=== PATIENT | male | born 1970 | race Two or more races ===

== ENCOUNTER 2019-05-08 11:46 | Inpatient (IN) | payer MEDICAID ==
[~2019-05-08] VITALS: Ht 177.8 cm; Wt 151.5 kg
[~2019-05-08 11:46] MED LIST: DULO60CA PO; GABA-339 PO; INSU70IN3 SC; INSUINJ SC; RISP1TAB63 PO
[2019-05-08 12:16] LABS: Basophils # (auto) 0.1 uL; Basophils % (auto) 0.7 % (0.0-2.0); Eosinophils # (auto) 0.2 uL; Eosinophils % (auto) 2.3 % (0.0-7.0); Hematocrit 39.1 % (41.0-53.0); Hemoglobin 12.7 g/dL (13.5-17.5); Lymphocytes # (auto) 1.6 uL; Lymphocytes % (auto) 20.4 % (10.0-50.0); Mean Corpuscular Hemoglobin 28.3 pg (28.0-32.0); Mean Corpuscular Hgb Conc. 32.4 g/dL (32.0-36.0); Mean Corpuscular Volume 87.1 fL (80.0-100.0); Monocytes # (auto) 0.5 uL; Monocytes % (auto) 6.6 % (0.0-12.0); Neutrophils # (auto) 5.6 uL; Platelet Count (auto) 283 10^3/uL (140-450); Red Blood Cells 4.49 10^6/uL (4.5-5.90); Red Cell Distribution Width 15.5 % (11.8-14.3)
[2019-05-08 12:38] LABS: Potassium 5.4 mmol/L (3.5-5.1)
[2019-05-08 12:41] LABS: BUN/Creatinine Ratio 12.9; Bilirubin, Total 0.2 mg/dL (0.2-1.0); Total Protein 6.1 g/dL (6.4-8.2)
[2019-05-08] MEDS ORDERED: CALCIUM GLUC 4.65meq/50ml D5AE 50 ML IV ONE (13:00)
[2019-05-08] MEDS ORDERED: SODIUM BICARBONATE 8.4 % INJ 50ML VIAL IV ONE (13:00)
[2019-05-08] MEDS ORDERED: DEXTROSE (50%) 50ML SYRG IV PRN (14:00)
[2019-05-08] MEDS ORDERED: SODIUM ZIRCONIUM CYCL 10 GM PAK PO ONE ×3 (14:00→17:45)
[2019-05-08] MEDS ORDERED: NITROGLYCERIN 0.4 MG SL TAB SL PRN (14:00)
[2019-05-08] MEDS ORDERED: MORPHINE SULF INJ 2 MG/ML SYRINGE 1ML IV PRN (14:00)
[2019-05-08] MEDS: SODIUM BICARBONATE 50ML VIAL 50 ML in SOD CHL 0.45% 1,000 ML IV ONE ×2 (14:18→18:13)
[2019-05-08] MEDS: hydrALAZINE HCL 10 MG TAB PO SCH ×2 (14:29→21:55)
[2019-05-08 15:19] VITALS: BP 143/76
--- NOTE | 2019-05-08 15:19 | NUR ---
Telemetry admit from ER BERNARD CHICAS admitted to Telemetry unit after SBAR received BRENDON John. Patient oriented to Fabi Hagan primary RN, unit, room, bed, and unit policies regarding patient care and visiting hours. Patient now on continuous telemetry monitoring, tele box #25. Bed set to lowest position/locked, bedside rails up x2, call light within reach. Instructed patient to call for assistance.Will continue to monitor q1hr and prn.
[2019-05-08] MEDS: ACCU-CHEK COMFORT CURVE STRIP VI SCH ×2 (17:00→21:37)
[2019-05-08] MEDS: InsuLIN REG 1unit/0.01ml Soln (100units/ml) SC SCH ×2 (17:00→21:51)
[2019-05-08 17:06] VITALS: BP 132/86
[2019-05-08] MEDS ORDERED: OPTISON 3ml Vial for INJ IV ONE (17:16)
[2019-05-08] MEDS ORDERED: INSU75IN2 SC (18:02)
[2019-05-08] MEDS ORDERED: ATOR1TAB PO (18:02)
[2019-05-08] MEDS ORDERED: DULO20CA PO (18:02)
[2019-05-08] MEDS ORDERED: SEMA2INJ SC (18:08)
[2019-05-08] MEDS ORDERED: AMLO10TA13 PO (18:08)
[2019-05-08] MEDS ORDERED: LEVO25TA6 PO (18:08)
[2019-05-08] MEDS ORDERED: CHOL1TAB16 PO (18:08)
[2019-05-08] MEDS ORDERED: IRBE300T46 PO (18:08)
--- NOTE | 2019-05-08 19:26 | NUR ---
ENDORSED CARE TO BRENDON CALVO.
--- NOTE | 2019-05-08 19:57 | NUR ---
Opening Shift Note Assumed care of patient, awake and alert. No S/S of distress/SOB or pain. Instructed on POC and to call for assist PRN, will continue to monitor for changes Q1hr and PRN.Ate with very good appetite.
[2019-05-08 21:20] LABS: Albumin 1.9 g/dL (3.4-5.0); BUN/Creatinine Ratio 13.2; Calcium 8.1 mg/dL (8.5-10.1); Potassium 5.2 mmol/L (3.5-5.1)
[2019-05-08 21:22] LABS: Bilirubin, Total 0.2 mg/dL (0.2-1.0); Total Protein 5.7 g/dL (6.4-8.2)
[2019-05-08] MEDS: ATORVASTATIN 20 MG TAB PO SCH ×2 (21:36→21:56)
[2019-05-08] MEDS: CARVEDILOL 3.125 MG TAB PO SCH (21:57)
[2019-05-08 22:00] VITALS: BP_SYST 104; BP_SYST 144; BP_DIAS 69; BP_DIAS 70
--- NOTE | 2019-05-09 02:05 | NUR ---
Informed N.p that the patient wants his gabapentin home med.reconciled, and its nick as per N.p .
[2019-05-09 05:00] VITALS: BP 143/78
[2019-05-09] MEDS: hydrALAZINE HCL 10 MG TAB PO SCH ×3 (05:31→22:20)
[2019-05-09] MEDS: GABAPENTIN 300 MG CAP PO SCH ×3 (05:31→17:34)
[2019-05-09] MEDS ORDERED: InsuLIN REG 1unit/0.01ml Soln (100units/ml) ONE (05:55)
[2019-05-09] MEDS: ACCU-CHEK COMFORT CURVE STRIP VI SCH ×4 (06:35→22:20)
[2019-05-09] MEDS: InsuLIN REG 1unit/0.01ml Soln (100units/ml) SC SCH ×4 (06:36→22:30)
[2019-05-09 06:49] LABS: Basophils # (auto) 0.1 uL; Basophils % (auto) 0.6 % (0.0-2.0); Eosinophils # (auto) 0.2 uL; Eosinophils % (auto) 2.7 % (0.0-7.0); Lymphocytes # (auto) 1.9 uL; Lymphocytes % (auto) 22.8 % (10.0-50.0); Mean Corpuscular Hemoglobin 28.8 pg (28.0-32.0); Mean Corpuscular Hgb Conc. 33.4 g/dL (32.0-36.0); Mean Corpuscular Volume 86.2 fL (80.0-100.0); Monocytes # (auto) 0.6 uL; Monocytes % (auto) 6.9 % (0.0-12.0); Neutrophils # (auto) 5.6 uL; Platelet Count (auto) 240 10^3/uL (140-450); Red Blood Cells 4.17 10^6/uL (4.5-5.90); Red Cell Distribution Width 15.1 % (11.8-14.3); White Blood Cell 8.4 10^3/uL (4.4-10.8)
[2019-05-09 07:03] LABS: Potassium 4.9 mmol/L (3.5-5.1)
[2019-05-09 07:13] LABS: Albumin 1.9 g/dL (3.4-5.0); BUN/Creatinine Ratio 13.2; Bilirubin, Total 0.2 mg/dL (0.2-1.0); Calcium 8.2 mg/dL (8.5-10.1); Total Protein 5.8 g/dL (6.4-8.2)
--- NOTE | 2019-05-09 07:24 | NUR ---
Report given to Rodolfo Dunlap,patient is resting and to tell hospitalist the home meds.
--- NOTE | 2019-05-09 07:50 | NUR ---
OPENING NOTE ASSUMED CARE OF PT. ALERT AND ORIENTED. NO S/S SOB/DISTRESS NOTED. DENIES ANY PAIN. SAFETY PRECAUTIONS IN PLACE. BED SET TO LOWEST POSITION/LOCKED. BEDSIDE RAILS UP X2. CALL LIGHT WITHIN REACH. INSTRUCTED PT TO CALL FOR ASSISTANCE. UPDATED ON POC. PT VERBALIZED UNDERSTANDING WILL CONTINUE TO MONITOR Q1HR AND PRN.
[2019-05-09 09:00] VITALS: BP 120/65
[2019-05-09] MEDS: CARVEDILOL 3.125 MG TAB PO SCH ×2 (09:37→22:20)
[2019-05-09] MEDS: DULoxetine HCL 30 MG CAP PO SCH (09:38)
[2019-05-09 13:00] VITALS: BP 128/78
[2019-05-09 17:00] VITALS: BP 133/92
--- NOTE | 2019-05-09 17:00 | NUR ---
RECEIVED CALL FROM DR. TOVAR RE: CONSULTATION. PER MD PATIENT WILL BE SEE TOMORROW 05/10/19
--- NOTE | 2019-05-09 19:19 | NUR ---
Opening Shift Note Received report from day shift nurse, Fabi. Patient is awake, alert, and orientated x 4 with No S/S of distress/SOB or pain. Pt has prosthetic leg at bedside. Bed is in lowest position with side rails up x 2. Bed brakes are locked and call light is with in reach. HOB is 30 degrees and bed alarm is on. Instructed on POC and to call for assistance PRN, will continue to monitor for changes Q1hr and PRN.
[2019-05-09 20:00] VITALS: BP 128/78
[2019-05-09 22:00] VITALS: BP 115/75
[2019-05-09] MEDS: ATORVASTATIN 20 MG TAB PO SCH (22:20)
[2019-05-10] MEDS: GABAPENTIN 300 MG CAP PO SCH ×4 (00:11→18:00)
[2019-05-10 04:53] VITALS: BP 124/78
[2019-05-10] MEDS: hydrALAZINE HCL 10 MG TAB PO SCH ×2 (05:43→13:34)
[2019-05-10] MEDS: ACCU-CHEK COMFORT CURVE STRIP VI SCH ×3 (06:03→17:00)
[2019-05-10] MEDS: InsuLIN REG 1unit/0.01ml Soln (100units/ml) SC SCH ×3 (06:08→17:00)
[2019-05-10 06:47] LABS: Basophils # (auto) 0 uL; Basophils % (auto) 0.5 % (0.0-2.0); Eosinophils # (auto) 0.1 uL; Eosinophils % (auto) 1.6 % (0.0-7.0); Hematocrit 35.4 % (41.0-53.0); Hemoglobin 11.8 g/dL (13.5-17.5); Lymphocytes # (auto) 1.7 uL; Lymphocytes % (auto) 19.4 % (10.0-50.0); Mean Corpuscular Hgb Conc. 33.4 g/dL (32.0-36.0); Mean Corpuscular Volume 86.9 fL (80.0-100.0); Monocytes # (auto) 0.7 uL; Monocytes % (auto) 7.3 % (0.0-12.0); Neutrophils # (auto) 6.4 uL; Neutrophils % (auto) 71.2 % (37.0-80.0); Platelet Count (auto) 244 10^3/uL (140-450); Red Blood Cells 4.08 10^6/uL (4.5-5.90); Red Cell Distribution Width 14.8 % (11.8-14.3); White Blood Cell 8.9 10^3/uL (4.4-10.8)
[2019-05-10 07:04] LABS: Potassium 4.8 mmol/L (3.5-5.1)
[2019-05-10 07:08] LABS: BUN/Creatinine Ratio 14.4; Calcium 8.1 mg/dL (8.5-10.1); Magnesium 2.4 mg/dL (1.6-2.6)
--- NOTE | 2019-05-10 07:25 | NUR ---
closing notes endorsed care to day shift nurseConstance.
--- NOTE | 2019-05-10 07:50 | NUR ---
Opening Shift Note Assumed care of patient, awake and alert. No S/S of distress/SOB or pain. Instructed on POC and to call for assist PRN, will continue to monitor for changes Q1hr and PRN.
[2019-05-10 09:11] VITALS: BP 147/85
[2019-05-10] MEDS: DULoxetine HCL 30 MG CAP PO SCH (10:04)
[2019-05-10] MEDS: CARVEDILOL 3.125 MG TAB PO SCH (10:04)
--- NOTE | 2019-05-10 11:30 | NUR ---
Off Unit Patient have AMA in chart to go downstairs. Stated that he is just going outside to get some sun.
--- NOTE | 2019-05-10 11:50 | NUR ---
On Unit Patient returned to unit.
[2019-05-10 13:00] VITALS: BP 135/91
[2019-05-10 16:32] VITALS: BP 135/91
--- NOTE | 2019-05-10 18:00 | NUR ---
Discharge instructions given as ordered. Encourage to follow up with PMD as instructed. All questions and concerns addressed. Patient verbalized understanding. Medication reconciliation form completed and copy given to patient. IV removed with catheter intact and pressure dressing applied. Telemetry unit returned to ICU. Patient in room awaiting supper before he goes home.
--- NOTE | 2019-05-10 19:20 | NUR ---
Patient taken to vehicle via wheelchair with all personal belongings, accompanied by staff and family member. No distress noted at time of departure.
== END 2019-05-10 19:25 | disposition home or self-care (01) | DRG 469 ==
LOC: EDBD 11:46 → ER 11:46 → TELE 11:47 → TELE-CENTR 15:20
PROVIDERS: ADMIT Nurse Practitioner Acute Care; ATTEND Internal Medicine
DX: N17.9 Acute kidney failure, unspecified (principal); E11.22 Type 2 diabetes mellitus with diabetic chronic kidney disease; E11.51 Type 2 diabetes mellitus with diabetic peripheral angiopathy without gangrene; E44.0 Moderate protein-calorie malnutrition; E87.5 Hyperkalemia; I12.0 Hypertensive chronic kidney disease with stage 5 chronic kidney disease or end stage renal disease; E11.65 Type 2 diabetes mellitus with hyperglycemia; E78.00 Pure hypercholesterolemia, unspecified; D63.8 Anemia in other chronic diseases classified elsewhere; Z68.37 Body mass index [BMI] 37.0-37.9, adult; E66.01 Morbid (severe) obesity due to excess calories; E78.5 Hyperlipidemia, unspecified; F17.210 Nicotine dependence, cigarettes, uncomplicated; N18.6 End stage renal disease; Z79.4 Long term (current) use of insulin; Z79.899 Other long term (current) drug therapy; Z80.9 Family history of malignant neoplasm, unspecified; Z82.49 Family history of ischemic heart disease and other diseases of the circulatory system; Z89.512 Acquired absence of left leg below knee; Z83.3 Family history of diabetes mellitus; F32.9 Major depressive disorder, single episode, unspecified
CPT/HCPCS: 36415; 71045; 80048; 80053; 80061; 82962; 83036; 83735; 85025; 93005; 93306; 93971; 94761; 96365; 96375; G0378; J0610; J1815; Q9956

== ENCOUNTER 2019-08-23 10:20 | Emergency (ER) | payer MEDICAID ==
[~2019-08-23] VITALS: Ht 175.3 cm; Wt 149.7 kg
[~2019-08-23 10:20] MED LIST changes: +AMLO10TA13 PO; +ATOR1TAB PO; +CHOL1TAB16 PO; +DULO20CA PO; -DULO60CA PO; -INSU70IN3 SC; +INSU75IN2 SC; +LEVO25TA6 PO; +SEMA2INJ SC
[2019-08-23 10:34] VITALS: BP 139/90
[2019-08-23 11:16] LABS: Basophils # (auto) 0.1 uL; Basophils % (auto) 0.6 % (0.0-2.0); Eosinophils # (auto) 0.2 uL; Eosinophils % (auto) 2.2 % (0.0-7.0); Hemoglobin 13.9 g/dL (13.5-17.5); Lymphocytes # (auto) 1.4 uL; Lymphocytes % (auto) 16.3 % (10.0-50.0); Mean Corpuscular Hemoglobin 29.1 pg (28.0-32.0); Mean Corpuscular Hgb Conc. 33.1 g/dL (32.0-36.0); Mean Corpuscular Volume 87.9 fL (80.0-100.0); Monocytes # (auto) 0.5 uL; Monocytes % (auto) 5.9 % (0.0-12.0); Neutrophils # (auto) 6.5 uL; Platelet Count (auto) 226 10^3/uL (140-450); Red Blood Cells 4.77 10^6/uL (4.5-5.90); White Blood Cell 8.6 10^3/uL (4.4-10.8)
[2019-08-23 11:42] LABS: Albumin 1.6 g/dL (3.4-5.0); Calcium 8.1 mg/dL (8.5-10.1); Potassium 5.4 mmol/L (3.5-5.1)
[2019-08-23 11:47] LABS: Bilirubin, Total 0.2 mg/dL (0.2-1.0); Total Protein 5.7 g/dL (6.4-8.2)
[2019-08-23 11:48] LABS: BUN/Creatinine Ratio 14.4
[2019-08-23] MEDS ORDERED: FUROSEMIDE 20 MG/2 ML VIAL IV ONE (12:00)
[2019-08-23] MEDS ORDERED: SODIUM CHLORIDE 0.9% 1,000 ML IV ONE (12:00)
[2019-08-23] MEDS ORDERED: InsuLIN REG 1unit/0.01ml Soln (100units/ml) IV ONE (12:00)
[2019-08-23] MEDS ORDERED: SODIUM BICARBONATE 8.4% INJ 50ML SYRINGE IV ONE (12:00)
[2019-08-23 14:01] LABS: Magnesium 1.9 mg/dL (1.6-2.6)
== END 2019-08-23 17:24 | disposition left against medical advice (07) ==
LOC: ER 10:20
DX: E11.65 Type 2 diabetes mellitus with hyperglycemia (principal); E87.5 Hyperkalemia; E11.22 Type 2 diabetes mellitus with diabetic chronic kidney disease; I12.0 Hypertensive chronic kidney disease with stage 5 chronic kidney disease or end stage renal disease; N18.6 End stage renal disease; F17.210 Nicotine dependence, cigarettes, uncomplicated
CPT/HCPCS: 36415; 80053; 83735; 83880; 84484; 85025; 93005

== ENCOUNTER 2019-08-25 22:54 | Emergency (ER) | payer MEDICAID ==
[~2019-08-25] VITALS: Ht 175.3 cm; Wt 154.2 kg
[2019-08-26 00:22] LABS: Basophils # (auto) 0.1 uL; Basophils % (auto) 0.7 % (0.0-2.0); Eosinophils # (auto) 0.3 uL; Eosinophils % (auto) 2.4 % (0.0-7.0); Hematocrit 36.9 % (41.0-53.0); Hemoglobin 12.6 g/dL (13.5-17.5); Lymphocytes # (auto) 2.5 uL; Lymphocytes % (auto) 21.4 % (10.0-50.0); Mean Corpuscular Hemoglobin 30.1 pg (28.0-32.0); Mean Corpuscular Hgb Conc. 34.3 g/dL (32.0-36.0); Mean Corpuscular Volume 87.9 fL (80.0-100.0); Monocytes % (auto) 8.6 % (0.0-12.0); Neutrophils # (auto) 7.9 uL; Neutrophils % (auto) 66.9 % (37.0-80.0); Platelet Count (auto) 270 10^3/uL (140-450); Red Blood Cells 4.19 10^6/uL (4.5-5.90); Red Cell Distribution Width 14.7 % (11.8-14.3); White Blood Cell 11.8 10^3/uL (4.4-10.8)
[2019-08-26 00:36] LABS: INR 0.96 (0.9-1.15); Partial Thromboplastin Time 28.2 sec (23.64-32.05)
[2019-08-26 00:39] LABS: Albumin 1.6 g/dL (3.4-5.0); BUN/Creatinine Ratio 12.6; Calcium 7.3 mg/dL (8.5-10.1); Potassium 4.1 mmol/L (3.5-5.1)
[2019-08-26 00:48] LABS: Bilirubin, Total 0.2 mg/dL (0.2-1.0); Total Protein 5.6 g/dL (6.4-8.2)
[2019-08-26 01:21] LABS: Magnesium 1.8 mg/dL (1.6-2.6)
[2019-08-26 05:37] LABS: Urine Bacteria FEW /hpf (None Seen); Urine Blood 2+ /uL (Negative); Urine Budding Yeast FEW /hpf (None Seen); Urine Hyaline Cast FEW /lpf (0 - 2); Urine Mucus FEW (None Seen); Urine Specific Gravity 1.024 (1.001-1.035); Urine WBC 3 /hpf (0 - 3)
[2019-08-26] MEDS ORDERED: SODIUM CHLORIDE 0.9% 1,000 ML IV ONE (07:16)
[2019-08-26] MEDS ORDERED: PROMETHAZINE HCL 25 MG/ML 1ML IV PRN (07:30)
[2019-08-26] MEDS ORDERED: HYDROmorphone HCL 2 MG/ML VL IV ONE (07:30)
[2019-08-26 10:00] VITALS: BP 107/80
== END 2019-08-26 10:20 | disposition home or self-care (01) ==
LOC: EDBD 22:54 → ER 23:00
DX: E11.22 Type 2 diabetes mellitus with diabetic chronic kidney disease (principal); I13.11 Hypertensive heart and chronic kidney disease without heart failure, with stage 5 chronic kidney disease, or end stage renal disease; N18.6 End stage renal disease; E11.65 Type 2 diabetes mellitus with hyperglycemia; E03.9 Hypothyroidism, unspecified; J18.9 Pneumonia, unspecified organism; E11.21 Type 2 diabetes mellitus with diabetic nephropathy; E43 Unspecified severe protein-calorie malnutrition; Z68.43 Body mass index [BMI] 50.0-59.9, adult; Z87.891 Personal history of nicotine dependence; Z79.4 Long term (current) use of insulin; Z79.899 Other long term (current) drug therapy
CPT/HCPCS: 36415; 71045; 74176; 80053; 81001; 82150; 83690; 83735; 83880; 84443; 84484; 85025; 85610; 85730; 93005; 96361; 96374; 96375; 99284; J1170; J2550; J7030

== ENCOUNTER 2019-09-24 14:12 | Emergency (ER) | payer MEDICAID ==
[~2019-09-24] VITALS: Ht 175.3 cm; Wt 165.6 kg
[2019-09-24 16:08] LABS: Basophils # (auto) 0.1 10 ^3/uL (0-0.2); Basophils % (auto) 0.8 % (0.0-2.0); Eosinophils # (auto) 0.2 10 ^3/uL (0-0.8); Eosinophils % (auto) 2.6 % (0.0-7.0); Hematocrit 35.7 % (41.0-53.0); Hemoglobin 11.8 g/dL (13.5-17.5); Lymphocytes # (auto) 1.5 10 ^3/uL (0.4-5.4); Lymphocytes % (auto) 16.3 % (10.0-50.0); Mean Corpuscular Hemoglobin 29.6 pg (28.0-32.0); Mean Corpuscular Hgb Conc. 33.1 g/dL (32.0-36.0); Mean Corpuscular Volume 89.6 fL (80.0-100.0); Monocytes # (auto) 0.6 10 ^3/uL (0-1.3); Neutrophils # (auto) 6.6 10 ^3/uL (1.6-8.6); Neutrophils % (auto) 73.3 % (37.0-80.0); Platelet Count (auto) 227 10^3/uL (140-450); Red Blood Cells 3.98 10^6/uL (4.5-5.90); Red Cell Distribution Width 15.2 % (11.8-14.3)
[2019-09-24 16:31] LABS: Albumin 1.7 g/dL (3.4-5.0); BUN/Creatinine Ratio 13.4; Calcium 8.3 mg/dL (8.5-10.1); Potassium 4.9 mmol/L (3.5-5.1)
[2019-09-24 16:34] LABS: Bilirubin, Total 0.2 mg/dL (0.2-1.0); Total Protein 6.1 g/dL (6.4-8.2)
[2019-09-24 19:40] VITALS: BP 177/92
[2019-09-24] MEDS ORDERED: hydrALAZINE HCL 10 MG TAB PO ONE (20:00)
== END 2019-09-24 20:19 | disposition home or self-care (01) ==
LOC: ER 14:12
DX: J06.9 Acute upper respiratory infection, unspecified (principal); B37.9 Candidiasis, unspecified; I12.0 Hypertensive chronic kidney disease with stage 5 chronic kidney disease or end stage renal disease; E11.22 Type 2 diabetes mellitus with diabetic chronic kidney disease; N18.6 End stage renal disease
CPT/HCPCS: 36415; 71045; 80053; 82962; 83880; 85025; 99284; J7050

== ENCOUNTER 2019-09-29 19:07 | Inpatient (IN) | payer MEDICAID ==
[~2019-09-29] VITALS: Ht 177.8 cm; Wt 147.2 kg
[2019-09-29] MEDS ORDERED: ONDANSETRON HCL 4 MG/2 ML VIAL IV ONE (20:45)
[2019-09-29] MEDS ORDERED: SODIUM CHLORIDE 0.9% 1,000 ML IV ONE (20:45)
[2019-09-29 21:11] LABS: Basophils # (auto) 0.1 10 ^3/uL (0-0.2); Basophils % (auto) 0.8 % (0.0-2.0); Eosinophils # (auto) 0.2 10 ^3/uL (0-0.8); Eosinophils % (auto) 2.4 % (0.0-7.0); Hematocrit 38.8 % (41.0-53.0); Hemoglobin 12.8 g/dL (13.5-17.5); Lymphocytes % (auto) 12.4 % (10.0-50.0); Mean Corpuscular Hemoglobin 29.6 pg (28.0-32.0); Mean Corpuscular Volume 89.7 fL (80.0-100.0); Monocytes # (auto) 0.9 10 ^3/uL (0-1.3); Monocytes % (auto) 11.2 % (0.0-12.0); Neutrophils # (auto) 5.8 10 ^3/uL (1.6-8.6); Neutrophils % (auto) 73.2 % (37.0-80.0); Platelet Count (auto) 203 10^3/uL (140-450); Red Blood Cells 4.32 10^6/uL (4.5-5.90); Red Cell Distribution Width 15.1 % (11.8-14.3); White Blood Cell 7.9 10^3/uL (4.4-10.8)
[2019-09-29 21:28] LABS: Albumin 1.5 g/dL (3.4-5.0); Calcium 7.9 mg/dL (8.5-10.1); Potassium 4.6 mmol/L (3.5-5.1)
[2019-09-29 21:32] LABS: BUN/Creatinine Ratio 10.1; Bilirubin, Total 0.2 mg/dL (0.2-1.0); Total Protein 6.1 g/dL (6.4-8.2)
[2019-09-29] MEDS ORDERED: ACETAMINOPHEN 325 MG TAB PO ONE (23:30)
[2019-09-30] MEDS ORDERED: DOCUSATE SOD 100 MG CAP PO PRN (01:00)
[2019-09-30] MEDS ORDERED: ONDANSETRON HCL 4 MG/2 ML VIAL IV PRN (01:00)
[2019-09-30] MEDS ORDERED: risperiDONE 1 MG TAB PO SCH (01:00)
[2019-09-30] MEDS ORDERED: DEXTROSE (50%) 50ML SYRG IV PRN (01:00)
[2019-09-30] MEDS ORDERED: HYDROcodone-ACET 5/325MG TAB PO PRN (01:00)
[2019-09-30] MEDS: SODIUM CHLORIDE 0.9% 1,000 ML IV SCH ×2 (03:04→17:39)
--- NOTE | 2019-09-30 03:20 | NUR ---
pt arrived to rm 209
[2019-09-30 03:25] VITALS: BP 97/62
[2019-09-30] MEDS: ACCU-CHEK COMFORT CURVE STRIP VI SCH ×5 (04:02→21:33)
[2019-09-30] MEDS: InsuLIN REG 1unit/0.01ml Soln (100units/ml) SC SCH ×5 (04:09→21:32)
[2019-09-30] MEDS: GABAPENTIN 300 MG CAP PO SCH ×3 (06:03→17:39)
[2019-09-30] MEDS: LEVOTHYROXINE SODIUM 25 MCG TAB PO SCH (06:04)
--- NOTE | 2019-09-30 06:58 | NUR ---
pt resting in left lateral position with eyes closed. pt denies any s/s of pain or discomfort. respirations are even and nonlabored on 2lnc. bed in low locked position, call light within reach.
--- NOTE | 2019-09-30 07:30 | NUR ---
Opening Shift Note Assumed care of patient, awake and alert. No S/S of distress/SOB or pain. Updated on POC and instructed to call for assistance as needed, patient verbalized understanding. Bed locked in lowest position, side rails up x2, call light within reach. Will continue to monitor for changes Q1hr and PRN.
[2019-09-30 09:29] VITALS: BP 114/69
[2019-09-30] MEDS: DULOXETINE HCL 20 MG PO SCH (10:00)
[2019-09-30 10:08] LABS: Basophils # (auto) 0 10 ^3/uL (0-0.2); Basophils % (auto) 0.6 % (0.0-2.0); Eosinophils # (auto) 0.1 10 ^3/uL (0-0.8); Hematocrit 36.5 % (41.0-53.0); Hemoglobin 11.8 g/dL (13.5-17.5); Lymphocytes % (auto) 13.7 % (10.0-50.0); Mean Corpuscular Hemoglobin 28.9 pg (28.0-32.0); Mean Corpuscular Hgb Conc. 32.3 g/dL (32.0-36.0); Mean Corpuscular Volume 89.5 fL (80.0-100.0); Monocytes # (auto) 1.1 10 ^3/uL (0-1.3); Monocytes % (auto) 15.2 % (0.0-12.0); Neutrophils # (auto) 4.8 10 ^3/uL (1.6-8.6); Neutrophils % (auto) 68.5 % (37.0-80.0); Platelet Count (auto) 181 10^3/uL (140-450); Red Blood Cells 4.08 10^6/uL (4.5-5.90); Red Cell Distribution Width 14.9 % (11.8-14.3)
[2019-09-30] MEDS: CHOLECALCIFEROL (VITD3) 1,000IU=25mCg TAB PO SCH (10:12)
[2019-09-30] MEDS: amLODIPine BESYLATE 5 MG TAB PO SCH (10:13)
[2019-09-30 10:25] LABS: Calcium 7.6 mg/dL (8.5-10.1); Potassium 5.1 mmol/L (3.5-5.1)
[2019-09-30 10:27] LABS: BUN/Creatinine Ratio 11.1
[2019-09-30 12:54] VITALS: BP 112/64
[2019-09-30 15:14] VITALS: BP 112/64
[2019-09-30 16:23] VITALS: BP 127/82
[2019-09-30] MEDS: DOXYCYCLINE 100MG/250ML 250 ML IV SCH (16:28)
[2019-09-30] MEDS: IPRATROPIUM BROM 0.5 MG/2.5ML INH SOL NEB SCH (18:22)
[2019-09-30] MEDS: ALBUTEROL SULF 2.5 MG/0.5ML(0.5%) NEB SOLN NEB SCH (18:22)
[2019-09-30] MEDS: ATORVASTATIN 20 MG TAB PO SCH (21:33)
[2019-09-30 22:00] VITALS: BP 113/55
[2019-10-01] MEDS: InsuLIN REG 1unit/0.01ml Soln (100units/ml) SC SCH ×7 (00:19→23:22)
[2019-10-01] MEDS: GABAPENTIN 300 MG CAP PO SCH ×5 (00:19→23:20)
[2019-10-01] MEDS: ACCU-CHEK COMFORT CURVE STRIP VI SCH ×7 (00:20→23:20)
[2019-10-01] MEDS: IPRATROPIUM BROM 0.5 MG/2.5ML INH SOL NEB SCH ×5 (00:34→21:44)
[2019-10-01] MEDS: ALBUTEROL SULF 2.5 MG/0.5ML(0.5%) NEB SOLN NEB SCH ×5 (00:34→21:44)
[2019-10-01] MEDS: DOXYCYCLINE 100MG/250ML 250 ML IV SCH ×2 (03:36→15:25)
[2019-10-01 05:00] VITALS: BP 113/62
[2019-10-01] MEDS: LEVOTHYROXINE SODIUM 25 MCG TAB PO SCH (06:13)
[2019-10-01 09:00] VITALS: BP 144/95
[2019-10-01 09:39] LABS: Sodium Urine 10 mmol/L (40-220)
[2019-10-01] MEDS: amLODIPine BESYLATE 5 MG TAB PO SCH (09:53)
[2019-10-01] MEDS: CHOLECALCIFEROL (VITD3) 1,000IU=25mCg TAB PO SCH (09:53)
[2019-10-01 09:56] LABS: Creatinine, Urine < 0.1 mg/dL (30.0-125.0)
[2019-10-01] MEDS: DULOXETINE HCL 20 MG PO SCH (10:00)
[2019-10-01] MEDS: guaiFENesin-DM 100/10mg/5ml SYR PO PRN ×2 (10:47→20:39)
[2019-10-01 13:00] VITALS: BP 137/96
[2019-10-01 13:09] LABS: BUN/Creatinine Ratio 9.4; Calcium 7.7 mg/dL (8.5-10.1)
--- NOTE | 2019-10-01 16:15 | NUR ---
pt seen by Dr. Sepulveda made aware pt is wheezing, received order to change breathing treatment to q4hrs while awake.
[2019-10-01] MEDS: SODIUM CHLORIDE 0.9% 1,000 ML IV SCH (16:26)
[2019-10-01 17:00] VITALS: BP 141/70
--- NOTE | 2019-10-01 19:40 | NUR ---
Opening Shift Note Assumed care of patient, awake and alert. No S/S of distress/SOB or pain. Instructed on POC and to call for assist PRN patient verbalized understanding and in agreement. Fall and safety precautions in place. Call light within reach and able to use. Will continue to monitor for changes Q1hr and PRN.
--- NOTE | 2019-10-01 20:30 | NUR ---
PRN for cough Patient requests prn cough medicine (see emar for administration). Will continue to monitor.
[2019-10-01] MEDS: ATORVASTATIN 20 MG TAB PO SCH (21:07)
[2019-10-01 22:00] VITALS: BP 128/82
[2019-10-02] MEDS: SODIUM CHLORIDE 0.9% 1,000 ML IV SCH (02:36)
[2019-10-02] MEDS: DOXYCYCLINE 100MG/250ML 250 ML IV SCH ×2 (03:02→16:10)
[2019-10-02] MEDS: ACCU-CHEK COMFORT CURVE STRIP VI SCH ×5 (03:02→22:50)
[2019-10-02] MEDS: InsuLIN REG 1unit/0.01ml Soln (100units/ml) SC SCH ×5 (03:04→22:50)
[2019-10-02 05:00] VITALS: BP 118/59
--- NOTE | 2019-10-02 05:20 | NUR ---
02 recheck patient o2 sat rechecked: 92%. Will continue to monitor.
[2019-10-02 05:29] LABS: BUN/Creatinine Ratio 10.3; Calcium 7.6 mg/dL (8.5-10.1); Potassium 5.1 mmol/L (3.5-5.1)
[2019-10-02] MEDS: GABAPENTIN 300 MG CAP PO SCH ×4 (05:54→23:51)
[2019-10-02] MEDS: LEVOTHYROXINE SODIUM 25 MCG TAB PO SCH (06:09)
[2019-10-02] MEDS: ALBUTEROL SULF 2.5 MG/0.5ML(0.5%) NEB SOLN NEB SCH ×5 (06:17→22:11)
[2019-10-02] MEDS: IPRATROPIUM BROM 0.5 MG/2.5ML INH SOL NEB SCH ×5 (06:17→22:12)
[2019-10-02 09:00] VITALS: BP 115/66
[2019-10-02] MEDS: DULOXETINE HCL 20 MG PO SCH (09:08)
[2019-10-02] MEDS: CHOLECALCIFEROL (VITD3) 1,000IU=25mCg TAB PO SCH (09:09)
[2019-10-02] MEDS: amLODIPine BESYLATE 5 MG TAB PO SCH (09:09)
[2019-10-02] MEDS ORDERED: FUROSEMIDE 20 MG/2 ML VIAL IV ONE (09:45)
--- NOTE | 2019-10-02 10:41 | NUR ---
Respiratory note: PATIENT FOUND AT 88% SPO2 ON 4LPM NASAL CANULA. HE WAS PLACED ON 5LPM OXYMIZER POST MED-NEB TX AND SPO2 INCREASED AND MAINTAINED AT 93%. BRENDON COOL MADE AWARE OF CHANGE.
[2019-10-02 13:00] VITALS: BP 117/73
[2019-10-02 15:19] LABS: Urine Bacteria FEW /hpf (None Seen); Urine Blood 1+ /uL (Negative); Urine Hyaline Cast FEW /lpf (0 - 2); Urine Specific Gravity 1.016 (1.001-1.035); Urine WBC 1 /hpf (0 - 3)
[2019-10-02 15:40] LABS: Protein, Urine 1079.7 mg/dL (0.0-11.9)
[2019-10-02 16:42] VITALS: BP 105/61
[2019-10-02] MEDS: ACETAMINOPHEN 325 MG TAB PO PRN (17:00)
[2019-10-02] MEDS ORDERED: DEXTROSE (50%) 50ML SYRG IV PRN (17:15)
[2019-10-02] MEDS ORDERED: levoFLOXacin 250MG 50 ML IV SCH (17:15)
--- NOTE | 2019-10-02 17:28 | NUR ---
New IV/Doxy started late IV came out. New IV was placed in LFA as documented. Doxycycline was started late due to loss of IV.
[2019-10-02] MEDS ORDERED: levoFLOXacin 750MG 150 ML IV ONE (17:30)
[2019-10-02] MEDS: methylPREDNISolone SOD SUCC 125 MG/2 ML VL IV SCH (21:39)
[2019-10-02] MEDS: ATORVASTATIN 20 MG TAB PO SCH (21:39)
[2019-10-02] MEDS: MORPHINE SULFATE 4 MG/ML SYR/VIAL IV PRN (21:40)
[2019-10-02] MEDS: guaiFENesin-DM 100/10mg/5ml SYR PO PRN (21:40)
[2019-10-02 22:00] VITALS: BP 146/69
--- NOTE | 2019-10-02 23:05 | NUR ---
Assumed care from BRENDON Curtis. Patient is sleeping comfortably at this time. Bed is in lowest position and locked. Call light within reach. Board updated. Will continue to monitor hourly and PRN.
[2019-10-03] MEDS: guaiFENesin-DM 100/10mg/5ml SYR PO PRN ×2 (01:36→06:38)
[2019-10-03] MEDS: MORPHINE SULFATE 4 MG/ML SYR/VIAL IV PRN ×2 (01:36→06:38)
[2019-10-03] MEDS: ALBUTEROL SULF 2.5 MG/0.5ML(0.5%) NEB SOLN NEB SCH ×6 (04:21→22:03)
[2019-10-03] MEDS: IPRATROPIUM BROM 0.5 MG/2.5ML INH SOL NEB SCH ×6 (04:21→22:04)
[2019-10-03 05:38] VITALS: BP 99/52
[2019-10-03 05:40] LABS: Calcium 7.7 mg/dL (8.5-10.1)
[2019-10-03 05:42] LABS: BUN/Creatinine Ratio 10.4
[2019-10-03 05:51] LABS: Potassium 6.6 mmol/L (3.5-5.1)
--- NOTE | 2019-10-03 06:00 | NUR ---
Paged MD Guajardo, who is covering for MD Sepulveda, to notify him of elevated potassium of 6.6 mEq/ml. Awaiting call back.
[2019-10-03] MEDS: LEVOTHYROXINE SODIUM 25 MCG TAB PO SCH (06:37)
[2019-10-03] MEDS: methylPREDNISolone SOD SUCC 125 MG/2 ML VL IV SCH ×3 (06:37→22:04)
[2019-10-03] MEDS: GABAPENTIN 300 MG CAP PO SCH ×3 (06:37→17:50)
[2019-10-03] MEDS: InsuLIN REG 1unit/0.01ml Soln (100units/ml) SC SCH ×4 (06:38→22:00)
[2019-10-03] MEDS: ACCU-CHEK COMFORT CURVE STRIP VI SCH ×4 (06:38→22:04)
[2019-10-03] MEDS ORDERED: FUROSEMIDE 20 MG/2 ML VIAL IV ONE (08:30)
[2019-10-03] MEDS ORDERED: SODIUM BICARBONATE 50ML VIAL 75 ML in SOD CHL 0.45% 1,000 ML IV SCH (08:30)
[2019-10-03 09:22] VITALS: BP 103/63
[2019-10-03] MEDS: DULOXETINE HCL 20 MG PO SCH (09:52)
[2019-10-03] MEDS: levoFLOXacin 750MG 150 ML IV SCH (10:26)
[2019-10-03] MEDS: CHOLECALCIFEROL (VITD3) 1,000IU=25mCg TAB PO SCH (10:28)
[2019-10-03] MEDS: amLODIPine BESYLATE 5 MG TAB PO SCH (10:28)
[2019-10-03] MEDS ORDERED: CALCIUM GLUC 4.65meq/50ml D5AE 50 ML IV ONE ×2 (10:45→17:30)
[2019-10-03] MEDS ORDERED: DEXTROSE (50%) 50ML SYRG IV ONE ×2 (11:00→17:30)
[2019-10-03] MEDS ORDERED: InsuLIN REG 1unit/0.01ml Soln (100units/ml) IV ONE ×2 (11:00→17:30)
--- NOTE | 2019-10-03 11:01 | NUR ---
Meds for K/refusal This nurse was able to give the patient the D50 and the insulin. He is refusing the Calcium Gluconate at this time because he says he wants to get up and get dressed and stretch/walk. This nurse explained to him that his potassium is very high and needs to come down or it could cause arrhythmias/irregular heart rhythm. Patient verbalized that he understands this and refused anyway. Will try again shortly, hopefully he will be cooperative after he is able to get up and move around a little. This nurse also explained that patient's are generally kept in gowns due to the IVs and potential tests/xrays that may be done. He said he would change into the gown if that happens.
--- NOTE | 2019-10-03 11:15 | NUR ---
Sera Called pharmacy regarding NaBicarb. Have not yet received. They said they would send it up.
--- NOTE | 2019-10-03 11:32 | NUR ---
Lunch blood sugar/insulin held Patient's blood sugar was 368. He had just been given D50 and 8 units of insulin for hyperkalemia so this nurse held the lunch time insulin to avoid compounding and dropping his blood sugar too low. Will check blood sugar again.
--- NOTE | 2019-10-03 12:21 | NUR ---
Refusing meds at this time Patient refusing medications at this time. Will continue to try.
[2019-10-03] MEDS: INSULIN LANTUS (GLARGINE) 1 /0.01ml (100units/ml) SC SCH (12:53)
--- NOTE | 2019-10-03 14:05 | NUR ---
Meds given Started Calcium Gluconate; started late due to previous refusal. Gave solumedrol as ordered. Will start NaBicarb after CaGluc finishes in 30 min.
[2019-10-03 14:36] VITALS: BP 103/63
[2019-10-03 17:12] LABS: BUN/Creatinine Ratio 10.8; Calcium 7.7 mg/dL (8.5-10.1)
[2019-10-03 17:17] LABS: Potassium 5.7 mmol/L (3.5-5.1)
--- NOTE | 2019-10-03 17:21 | NUR ---
William Vasquez/Jose PRICE Spoke with Dr. Sepulveda. Received new orders.
[2019-10-03] MEDS ORDERED: ALBUTEROL SULF 2.5 MG/0.5ML(0.5%) NEB SOLN NEB ONE (17:30)
--- NOTE | 2019-10-03 17:34 | NUR ---
BS/insulin held/new order Blood sugar is 306, requiring 8 units of regular insulin SQ. This nurse held the patient's scheduled insulin due to a new one time order for 8 units of regular insulin IV because of critical potassium level.
[2019-10-03 17:35] VITALS: BP 115/62
--- NOTE | 2019-10-03 21:20 | NUR ---
PATIENT ACCIDENTALLY PULLED OUT IV WHILE ASLEEP. CATHETER TIP WAS INTACT. PRESSURE DRESSING OVER WOUND. IV insertion IV access obtained, via clean sterile technique by inserting 22 gauge catheter at right forearm after 1 attempt. IV secured properly. No trauma to site. Patient tolerated procedure well.
[2019-10-03 21:40] LABS: BUN/Creatinine Ratio 11.5; Calcium 7.8 mg/dL (8.5-10.1)
[2019-10-03 21:50] VITALS: BP 93/46
--- NOTE | 2019-10-03 22:03 | NUR ---
PLACED CALL TO HOSPITALIST REGARDING ELEVATED POTASSIUM OF 6.0. AWAITING CALLBACK.
[2019-10-03] MEDS: ATORVASTATIN 20 MG TAB PO SCH (22:04)
--- NOTE | 2019-10-03 22:10 | NUR ---
HOLDING PATIENT'S ADMINISTRATION OF SLIDING SCALE INSULIN FOR BS OF 342 IN ANTICIPATION OF RECEIVING ORDERS FOR ELEVATED POTASSIUM.
--- NOTE | 2019-10-03 22:50 | NUR ---
RECEIVED CALLBACK FROM ALEXA BOYD. EXPLAINED SITUATION TO HIM. HE WILL REVIEW PATIENT INFORMATION AND PLACE ORDERS.
--- NOTE | 2019-10-03 23:40 | NUR ---
ALEXA BOYD CALLED BACK TO CALL Osito ALVAREZ FOR ORDERS.
--- NOTE | 2019-10-03 23:45 | NUR ---
CALLED DR. Osito MENJIVAR AND HE SAID TO CALL DR. BROCK THE H[employer] SPOR[employer] COACH FOR ORDERS.
--- NOTE | 2019-10-03 23:50 | NUR ---
SPOKE WITH DR. BROCK AND ORDERS WERE RECEIVED FOR INSULIN DRIP, 1 AMP SODIUM BICARB, CALCIUM GLUCONATE, VELTASSA OR EQUIVALENT AND TRANSFER TO ICU. WILL PLACE CALL TO DR. Alida MONTERO AT DR. BROCK'S REQUEST.
[2019-10-04] VITALS (16 sets, daily range): BP systolic 103–142; BP diastolic 52–73
[2019-10-04] MEDS: ACCU-CHEK COMFORT CURVE STRIP VI SCH ×21 (00:30→23:00)
--- NOTE | 2019-10-04 00:30 | NUR ---
SPOKE WITH ICU CHARGE NURSE AND GAVE UPDATE ON PATIENT STATUS.
[2019-10-04] MEDS ORDERED: CALCIUM GLUC 4.65meq/50ml D5AE 50 ML IV ONE (01:00)
[2019-10-04] MEDS ORDERED: SODIUM BICARBONATE 8.4 % INJ 50ML VIAL IV ONE ×2 (01:00→02:45)
[2019-10-04] MEDS ORDERED: SODIUM ZIRCONIUM CYCL 10 GM PAK PO ONE (01:00)
[2019-10-04] MEDS ORDERED: InsuLIN R (HUMAN) 100 UNITS in SODIUM CHL 0.9% 99 ML IV SCH ×2 (01:03→21:29)
[2019-10-04] MEDS: GABAPENTIN 300 MG CAP PO SCH ×5 (01:10→21:44)
[2019-10-04] MEDS ORDERED: InsuLIN REG 1unit/0.01ml Soln (100units/ml) ONE (01:11)
--- NOTE | 2019-10-04 01:20 | NUR ---
CALLED REPORT TO ICU NURSE BRYANT
[2019-10-04] MEDS ORDERED: ACCU-CHEK COMFORT CURVE STRIP VI SCH (01:30)
--- NOTE | 2019-10-04 01:54 | NUR ---
RECEIVED CALL FROM DR. Maxwell MONTERO. RECEIVED NEW ORDERS.
[2019-10-04] MEDS ORDERED: SODIUM BICARBONATE 50ML VIAL 50 ML in D5W/SOD CHL 0.45% 1,000 ML IV SCH (02:00)
[2019-10-04] MEDS ORDERED: DEXTROSE (50%) 50ML SYRG IV PRN (02:00)
[2019-10-04] MEDS: MORPHINE SULFATE 4 MG/ML SYR/VIAL IV PRN ×4 (02:03→21:45)
--- NOTE | 2019-10-04 02:15 | NUR ---
Pt being admitted to ICU AVIVABERNARD admitted to ICU via gurney on press operator instant print shop, and portable 02. Patient transfered to bed, connected to ICU monitoring and oxygen, and weighed by bedscale. Patient oriented to Hue Blakely, primary RN, unit, room, bed, and unit policies regarding patient care and visiting hours. All questions and concerns addressed, patient verbalized understanding. NOTE: PT TO UNIT A&O X 4. SOB WITH MINIMAL EXERTION. PT ON 4L N/C. SR ON BRAKE SHOE REBUILDER. 22 G IV TO R. F.A. INSULIN GTT STARTED PER ORDER. BLOOD SUGAR 375. NEW IV START TO R. POST FA 20 G IV INSERTED AFTER 1 ATTEMPT. PT TOLERATED WELL. 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 NO SKIN BREAKDOWN OBSERVED. HOB ELEVATED 45 DEGREES. CALL DOWLING IN REACH.
--- NOTE | 2019-10-04 02:50 | NUR ---
RESPIRATORY STATUS: Pt noted to have sleep apnea. While awake, pt's O2 saturation maintaining 94-97% on 4L NC, however while sleeping, pt's O2 saturation noted to be consistently decreasing down into 50s before rebounding back into 90s. LENS MOLDING EQUIPMENT OPERATOR paged for assessment and CPAP recommended. Page placed to Maxwell Gómez to clarify IVF order and also to obtain CPAP order. Pt arouses easily and A&O x 4 when awakened. Pt denies any distress.
--- NOTE | 2019-10-04 03:20 | NUR ---
Respiratory note: PLACED PT ON CPAP MODE. UNIT #B8 CONNECTED TO RED OUTLET AND O2 SOURCE. ALARMS ARE SET AND AUDIBLE. AMBU BAG AND MASK AT BEDSIDE. BS ARE DIMINISHED T/O, PLACED ON LARGE MASK, NO BREAKDOWN NOTED PRIOR TO PLACEMENT. BRENDON HURTADO COMMUNICATED OF CPAP PLACEMENT AND SETTINGS. WILL CONTINUE TO MONITOR.
--- NOTE | 2019-10-04 04:13 | NUR ---
Respiratory note: AT BEDSIDE FOR END OF SHIFT CPAP CHECK. NO CHANGES MADE. PT COMFORTABLY SLEEPING AT THIS TIME. WILL HAVE DAY SHIFT CONTINUE POC.
[2019-10-04] MEDS: InsuLIN R (HUMAN) 100 UNITS in SODIUM CHL 0.9% 99 ML IV SCH ×8 (04:58→19:04)
[2019-10-04] MEDS: methylPREDNISolone SOD SUCC 125 MG/2 ML VL IV SCH ×3 (05:59→21:44)
[2019-10-04] MEDS: INSULIN LANTUS (GLARGINE) 1 /0.01ml (100units/ml) SC SCH (06:06)
[2019-10-04] MEDS: ALBUTEROL SULF 2.5 MG/0.5ML(0.5%) NEB SOLN NEB SCH ×4 (06:39→18:29)
[2019-10-04] MEDS: IPRATROPIUM BROM 0.5 MG/2.5ML INH SOL NEB SCH ×4 (06:41→18:29)
--- NOTE | 2019-10-04 06:41 | NUR ---
RT NOTE: PT WAS TAKEN OFF OF CPAP BY RN SO MEDS COULD BE GIVEN. PT PLACED ONTO 4L NC. NO SIGNS OF DISTRESS. WILL CONTINUE TO MONITOR.
[2019-10-04] MEDS: LEVOTHYROXINE SODIUM 25 MCG TAB PO SCH (06:52)
[2019-10-04 06:53] LABS: Basophils # (auto) 0 10 ^3/uL (0-0.2); Eosinophils # (auto) 0 10 ^3/uL (0-0.8); Hematocrit 30.5 % (41.0-53.0); Hemoglobin 10.1 g/dL (13.5-17.5); Lymphocytes # (auto) 0.6 10 ^3/uL (0.4-5.4); Lymphocytes % (auto) 7.5 % (10.0-50.0); Mean Corpuscular Hemoglobin 29.8 pg (28.0-32.0); Mean Corpuscular Hgb Conc. 33.3 g/dL (32.0-36.0); Mean Corpuscular Volume 89.5 fL (80.0-100.0); Monocytes # (auto) 0.5 10 ^3/uL (0-1.3); Monocytes % (auto) 6.6 % (0.0-12.0); Neutrophils # (auto) 6.9 10 ^3/uL (1.6-8.6); Neutrophils % (auto) 85.9 % (37.0-80.0); Platelet Count (auto) 172 10^3/uL (140-450); Red Cell Distribution Width 14.5 % (11.8-14.3); White Blood Cell 8.1 10^3/uL (4.4-10.8)
--- NOTE | 2019-10-04 07:00 | NUR ---
report obtained patient very pleasant denies any pain medication remained alert and oriented x4. patient still gets SOB on exertion oxygen at 4 liters/NC. iv Regular insulin drip infusing blood sugar q 1 hour. IV d5 1/2 ns + na bicarb at 50 ml /hr.
[2019-10-04 07:16] LABS: Magnesium 1.8 mg/dL (1.6-2.6); Potassium 5.4 mmol/L (3.5-5.1)
[2019-10-04 07:18] LABS: BUN/Creatinine Ratio 12.4
--- NOTE | 2019-10-04 09:00 | NUR ---
Patient was seen by Dr Shetty this morning and was unhappy because the iv hanging was d51/2 ns + 1 amp sodium bicarb at 50. Md ordered new bicarb. Patient was given lasix 60 mg iv after inserting paulino catheter size 16 . Patient tolerated procedure well.
[2019-10-04] MEDS: FUROSEMIDE 20 MG/2 ML VIAL IV SCH (09:36)
[2019-10-04] MEDS: CHOLECALCIFEROL (VITD3) 1,000IU=25mCg TAB PO SCH (09:37)
[2019-10-04] MEDS: amLODIPine BESYLATE 5 MG TAB PO SCH (09:37)
[2019-10-04] MEDS: DULOXETINE HCL 20 MG PO SCH (10:00)
[2019-10-04] MEDS: SODIUM BICARBONATE 50ML VIAL 75 ML in SOD CHL 0.45% 1,000 ML IV SCH (10:50)
--- NOTE | 2019-10-04 10:50 | NUR ---
IV changed to 1/2ns with 5ml of Sodium Bicarb at 75 cc/hr. explained to patient what the Sodium bicarb. actions .
--- NOTE | 2019-10-04 13:15 | NUR ---
Midline Placement: Patient educated on need for midline placement. All risks and benefits explained and all questions and concerns addresses prior to procedure.18g/10cm midline inserted via RIGHT BRACHIAL vein using Ultrasound. Sterile technique utilized. Blood return obtained from lumen and flushed easily with NS using proper technique. Midline secured with saline lock; biodisc and occlusive dressing applied. Primary RN notified. Midline lot # [id number].
--- NOTE | 2019-10-04 14:15 | NUR ---
Nutrition Assessment Notes Please refer to link for full assessment notes. Est energy needs: 5124-7634 kcals (12-15 kcal/kgBW) Est protein needs: 76-95 gms/day (0.8-1.0 gm/kgAdjBW) (calculated with IBW adjusted for L BKA to determine AdjBW of 94.8 kg) ( IBW -5.9% for LBKA; 166#-10# = 156#; (379-156)x.25 + 156 = 209 lbs, or 94.8 kg) Will continue to monitor and reassess prn. Addendum: 10/04/19 at [address] Amended: Links added.
[2019-10-04] MEDS: ATORVASTATIN 20 MG TAB PO SCH (21:44)
[2019-10-05] VITALS (24 sets, daily range): BP systolic 105–150; BP diastolic 50–86
[2019-10-05] MEDS: ACCU-CHEK COMFORT CURVE STRIP VI SCH ×14 (00:30→22:14)
[2019-10-05] MEDS ORDERED: SODIUM BICARBONATE 8.4 % INJ 50ML VIAL IV ONE ×2 (01:21→01:26)
[2019-10-05] MEDS: SODIUM BICARBONATE 50ML VIAL 75 ML in SOD CHL 0.45% 1,000 ML IV SCH ×2 (01:39→15:33)
[2019-10-05 04:38] LABS: Basophils # (auto) 0 10 ^3/uL (0-0.2); Basophils % (auto) 0.1 % (0.0-2.0); Eosinophils # (auto) 0 10 ^3/uL (0-0.8); Hematocrit 29.3 % (41.0-53.0); Lymphocytes # (auto) 0.4 10 ^3/uL (0.4-5.4); Lymphocytes % (auto) 4.2 % (10.0-50.0); Mean Corpuscular Hemoglobin 29.9 pg (28.0-32.0); Mean Corpuscular Hgb Conc. 34.1 g/dL (32.0-36.0); Mean Corpuscular Volume 87.8 fL (80.0-100.0); Monocytes # (auto) 0.3 10 ^3/uL (0-1.3); Monocytes % (auto) 3.1 % (0.0-12.0); Neutrophils # (auto) 9.1 10 ^3/uL (1.6-8.6); Neutrophils % (auto) 92.6 % (37.0-80.0); Platelet Count (auto) 178 10^3/uL (140-450); Red Blood Cells 3.33 10^6/uL (4.5-5.90); Red Cell Distribution Width 14.3 % (11.8-14.3); White Blood Cell 9.8 10^3/uL (4.4-10.8)
[2019-10-05 04:46] LABS: Calcium 7.3 mg/dL (8.5-10.1); Potassium 5.2 mmol/L (3.5-5.1)
[2019-10-05 04:48] LABS: BUN/Creatinine Ratio 13.5
[2019-10-05] MEDS: MORPHINE SULFATE 4 MG/ML SYR/VIAL IV PRN ×5 (05:20→22:14)
[2019-10-05] MEDS: methylPREDNISolone SOD SUCC 125 MG/2 ML VL IV SCH (06:00)
[2019-10-05] MEDS: GABAPENTIN 300 MG CAP PO SCH (06:00)
[2019-10-05] MEDS: LEVOTHYROXINE SODIUM 25 MCG TAB PO SCH (07:00)
[2019-10-05] MEDS: INSULIN LANTUS (GLARGINE) 1 /0.01ml (100units/ml) SC SCH (07:00)
[2019-10-05] MEDS: ALBUTEROL SULF 2.5 MG/0.5ML(0.5%) NEB SOLN NEB SCH ×4 (08:15→22:20)
[2019-10-05] MEDS: IPRATROPIUM BROM 0.5 MG/2.5ML INH SOL NEB SCH ×4 (08:15→22:20)
[2019-10-05] MEDS ORDERED: INSULIN LANTUS (GLARGINE) 1 /0.01ml (100units/ml) SC SCH (09:15)
[2019-10-05] MEDS ORDERED: DEXTROSE (50%) 50ML SYRG IV PRN (09:30)
[2019-10-05] MEDS ORDERED: INSULIN LANTUS (GLARGINE) 1 /0.01ml (100units/ml) SC ONE (09:30)
[2019-10-05] MEDS: FUROSEMIDE 20 MG/2 ML VIAL IV SCH (09:47)
[2019-10-05] MEDS: CHOLECALCIFEROL (VITD3) 1,000IU=25mCg TAB PO SCH (09:48)
[2019-10-05] MEDS: levoFLOXacin 750MG 150 ML IV SCH (09:48)
[2019-10-05] MEDS: amLODIPine BESYLATE 5 MG TAB PO SCH (09:49)
[2019-10-05] MEDS: DULOXETINE HCL 20 MG PO SCH (10:00)
--- NOTE | 2019-10-05 10:00 | NUR ---
DR MARTINEZ CAME AND SAW THE PATIENT AND ORDERED TO DISCONTINUE INSULIN DRIP PATIENT PUT ON SLIDING SCALE. PATIENT WILL BE TRASFERRED TO TELE WHEN BED IS AVAILABLE.
[2019-10-05] MEDS ORDERED: methylPREDNISolone SOD SUCC 40 MG/ML VL IV SCH (11:00)
[2019-10-05] MEDS: InsuLIN REG 1unit/0.01ml Soln (100units/ml) SC SCH ×3 (11:30→22:14)
[2019-10-05] MEDS ORDERED: levoFLOXacin 750MG 150 ML IV ONE (12:30)
[2019-10-05] MEDS ORDERED: GABAPENTIN 300 MG CAP PO SCH (14:00)
--- NOTE | 2019-10-05 19:30 | NUR ---
OPENING NOTE: A&OX4. PLEASANT AND COOPERATIVE. SITTING UP IN BED, FOUL ODOR FROM ROOM. UNABLE TO LOCATE SOURCE. NSR, HR 80-90s. SBP 120-130s ON LEFT FOREARM. LS WITH EXPIRATORY WHEEZE, REPORTS MILD SHORTNESS OF BREATH. SHALLOW BREATHING. SpO2>93% ON 3 L NC. + PRODUCTIVE COUGH. REPORTS RIB/CHEST PAIN FROM COUGHING (5 ON 1:10 SCALE). ABD OBESE, AND SOFT. HYPOACTIVE BS. +FLATUS. LBM 10/03. REPORTS INTERMITTENT NAUSEA EARLIER IN THE DAY THAT RESOLVED. BRANTLEY PATENT AND INTACT, DRAINING YELLOW URINE. SKIN GROSSLY INTACT. LEFT BKA, PROSTHESIS OFF AT THIS TIME. REPORTS GENERALIZED WEAKNESS BUT ABLE TO PERFORM ADLS WITH MINIMAL ASSISTANCE. GENERALIZED EDEMA. RIGHT UPPER ARM MIDLINE, CDI, AND PATENT WITH BLOOD RETURN. 20 G PIV TO RIGHT FOREARM, CDI, AND PATENT WITH BLOOD RETURN. NOTED WITH BILATERAL HAND TREMORS AND HEAD TWITCH AND JERK. REPORTS IT STARTED SINCE ADMISSION, AND THE MD SAYS "IT'S BECAUSE OF THE MEDS I'M ON." REINFORCED POC. MAINTAINED PATIENT SAFETY: BED LOCKED AND IN THE LOWEST POSITION. FREQUENT VISUAL CHECKS. NO FAMILY PRESENT AT THIS TIME. WILL CONT CARE
--- NOTE | 2019-10-05 19:30 | NUR ---
ALLERGY/ADVERSE REACTION HX OF - NORCO: PATIENT REPORTS THAT WHEN PREVIOUSLY TOOK NORCO HE EXPERIENCED NAUSEA, VOMITING, AND INCREASED SWEATING. ABLE TO TAKE TYLENOL WITHOUT ADVERSE EFFECTS.
[2019-10-05] MEDS: guaiFENesin-DM 100/10mg/5ml SYR PO PRN (19:43)
--- NOTE | 2019-10-05 19:45 | NUR ---
REPORT FREQUENT COUGHS - PRIYANKA CAMACHO PRN GIVEN
--- NOTE | 2019-10-05 20:26 | NUR ---
ROUNDED: SLEEPING. EVEN AND UNLABORED BREATHING.
[2019-10-05] MEDS: ATORVASTATIN 20 MG TAB PO SCH (22:15)
--- NOTE | 2019-10-05 22:50 | NUR ---
ROUNDED: SLEEPING ON CPAP. EVEN AND UNLABORED BREATHING. VSS.
[2019-10-06] VITALS (9 sets, daily range): BP systolic 126–144; BP diastolic 69–86
--- NOTE | 2019-10-06 01:45 | NUR ---
REPORT AND CARE ENDORSED BRENDON SILVA
--- NOTE | 2019-10-06 02:10 | NUR ---
TRANSFERRED TO ROOM 217B WITH US GER & BACILIO AND JUMANA RT
[2019-10-06] MEDS: ACCU-CHEK COMFORT CURVE STRIP VI SCH ×4 (06:13→21:56)
[2019-10-06] MEDS: IPRATROPIUM BROM 0.5 MG/2.5ML INH SOL NEB SCH ×5 (06:36→22:16)
[2019-10-06] MEDS: ALBUTEROL SULF 2.5 MG/0.5ML(0.5%) NEB SOLN NEB SCH ×5 (06:36→22:16)
[2019-10-06] MEDS: LEVOTHYROXINE SODIUM 25 MCG TAB PO SCH (06:42)
[2019-10-06] MEDS: INSULIN LANTUS (GLARGINE) 1 /0.01ml (100units/ml) SC SCH (06:43)
[2019-10-06] MEDS: SODIUM BICARBONATE 50ML VIAL 75 ML in SOD CHL 0.45% 1,000 ML IV SCH ×2 (06:44→19:00)
[2019-10-06] MEDS: InsuLIN REG 1unit/0.01ml Soln (100units/ml) SC SCH ×4 (06:44→21:57)
--- NOTE | 2019-10-06 06:47 | NUR ---
closing note pt resting in semi fowlers with eye closed. resp are nonlabored on 3lnc. pt denies any pain or discomfort at this time. bed in low locked position, call light within reach.
--- NOTE | 2019-10-06 07:35 | NUR ---
Opening Shift Note Assumed care of patient from noc shift rn, awake and alert, finishing breakfast. Reports 9/10 pain to left side, tremors noted. Plan of care discussed, instructed to call for assistance as needed, patient verbalized understanding. Bed locked in lowest position, side rails up x2, call light within reach. Will continue to monitor for changes Q1hr and PRN.
[2019-10-06 09:01] LABS: Basophils # (auto) 0 10 ^3/uL (0-0.2); Basophils % (auto) 0.1 % (0.0-2.0); Eosinophils # (auto) 0 10 ^3/uL (0-0.8); Hematocrit 31.2 % (41.0-53.0); Hemoglobin 10.4 g/dL (13.5-17.5); Lymphocytes # (auto) 0.4 10 ^3/uL (0.4-5.4); Lymphocytes % (auto) 4.2 % (10.0-50.0); Mean Corpuscular Hemoglobin 29.1 pg (28.0-32.0); Mean Corpuscular Hgb Conc. 33.3 g/dL (32.0-36.0); Mean Corpuscular Volume 87.3 fL (80.0-100.0); Monocytes # (auto) 0.6 10 ^3/uL (0-1.3); Monocytes % (auto) 6.9 % (0.0-12.0); Neutrophils # (auto) 7.7 10 ^3/uL (1.6-8.6); Neutrophils % (auto) 88.8 % (37.0-80.0); Nucleated Red Blood Cells % 0.1 %; Platelet Count (auto) 191 10^3/uL (140-450); Red Blood Cells 3.58 10^6/uL (4.5-5.90); Red Cell Distribution Width 14.4 % (11.8-14.3); White Blood Cell 8.7 10^3/uL (4.4-10.8)
[2019-10-06 09:06] LABS: BUN/Creatinine Ratio 13.8; Calcium 7.1 mg/dL (8.5-10.1); Magnesium 2.1 mg/dL (1.6-2.6)
[2019-10-06] MEDS: MORPHINE SULFATE 4 MG/ML SYR/VIAL IV PRN (09:17)
[2019-10-06] MEDS: predniSONE 20 MG TAB PO SCH (09:17)
--- NOTE | 2019-10-06 09:17 | NUR ---
PATIENT GIVEN 2MG MORPHINE FOR 9/10 PAIN TO LEFT LATERAL BODY FROM COUGHING.
[2019-10-06] MEDS: CHOLECALCIFEROL (VITD3) 1,000IU=25mCg TAB PO SCH (09:18)
[2019-10-06] MEDS: amLODIPine BESYLATE 5 MG TAB PO SCH (09:19)
[2019-10-06] MEDS: levoFLOXacin 750MG 150 ML IV SCH (11:54)
[2019-10-06] MEDS: DULOXETINE HCL 60 MG PO SCH (11:55)
[2019-10-06] MEDS: DULOXETINE HCL 20 MG PO SCH (12:08)
--- NOTE | 2019-10-06 16:35 | NUR ---
DR. SANTA'S OFFICE CALLED AND MESSAGE LEFT WITH RICK TO CONFIRM PATIENT'S DIALYSIS PLAN. THERE IS FOR DIALYSIS, HOWEVER, PATIENT HAS NO DIALYSIS CATHETER IN PLACE.
--- NOTE | 2019-10-06 17:25 | NUR ---
DR. SANTA RETURNED CALL, WANTS TO HOLD OFF ON CATHETER PLACEMENT UNTIL TUESDAY FOR A POSSIBLE PROCEDURE WITH DR. SEGOVIA. NEW ORDER FOR SODIUM CHLORIDE 0.9% 1,000ML AT 100MLS/HR ORDERED.
[2019-10-06] MEDS: SODIUM CHLORIDE 0.9% 1,000 ML IV SCH (18:45)
--- NOTE | 2019-10-06 19:00 | NUR ---
Opening Shift Note Assumed care of patient, awake and alert. No S/S of distress/SOB or pain. Instructed on POC and to call for assist PRN, will continue to monitor for changes Q1hr and PRN.
[2019-10-06] MEDS: guaiFENesin-DM 100/10mg/5ml SYR PO PRN (19:42)
--- NOTE | 2019-10-06 21:00 | NUR ---
Wound photo: Wound photo taken of patient's below the knee stump abrasion.
[2019-10-06] MEDS: ATORVASTATIN 20 MG TAB PO SCH (21:56)
--- NOTE | 2019-10-07 04:45 | NUR ---
Respiratory note: PT OFF CPAP AT THIS TIME, PULSE OX 92%
[2019-10-07] MEDS: SODIUM CHLORIDE 0.9% 1,000 ML IV SCH ×2 (04:59→15:40)
[2019-10-07 05:18] VITALS: BP 115/58
[2019-10-07] MEDS: ACCU-CHEK COMFORT CURVE STRIP VI SCH ×4 (06:32→21:31)
[2019-10-07] MEDS: INSULIN LANTUS (GLARGINE) 1 /0.01ml (100units/ml) SC SCH (06:33)
[2019-10-07] MEDS: InsuLIN REG 1unit/0.01ml Soln (100units/ml) SC SCH ×4 (06:34→21:32)
[2019-10-07] MEDS: LEVOTHYROXINE SODIUM 25 MCG TAB PO SCH (06:37)
[2019-10-07] MEDS: IPRATROPIUM BROM 0.5 MG/2.5ML INH SOL NEB SCH ×5 (07:25→22:06)
[2019-10-07] MEDS: ALBUTEROL SULF 2.5 MG/0.5ML(0.5%) NEB SOLN NEB SCH ×5 (07:25→22:05)
--- NOTE | 2019-10-07 07:30 | NUR ---
Opening Shift Note Assumed care of patient from noc shift rn, awake and alert. Reports 9/10 pain from coughing. Plan of care discussed, instructed to call for assistance as needed, patient verbalized understanding. Bed locked in lowest position, side rails up x2, call light within reach. Will continue to monitor for changes Q1hr and PRN.
[2019-10-07] MEDS: SODIUM BICARBONATE 50ML VIAL 75 ML in SOD CHL 0.45% 1,000 ML IV SCH ×2 (08:55→23:15)
[2019-10-07 09:28] VITALS: BP 128/84
[2019-10-07] MEDS ORDERED: DULOXETINE HCL 20 MG PO SCH (10:00)
[2019-10-07] MEDS ORDERED: GABAPENTIN 300 MG CAP PO SCH (10:00)
[2019-10-07] MEDS: ACETAMINOPHEN 325 MG TAB PO PRN (10:26)
--- NOTE | 2019-10-07 10:26 | NUR ---
PATIENT REPORTS 9/10 PAIN BUT ONLY REQUESTING FOR TYLENOL. WILL CONTINUE TO MONITOR Q1HR AND PRN.
[2019-10-07] MEDS: CHOLECALCIFEROL (VITD3) 1,000IU=25mCg TAB PO SCH (10:27)
[2019-10-07] MEDS: predniSONE 20 MG TAB PO SCH (10:27)
[2019-10-07] MEDS: amLODIPine BESYLATE 5 MG TAB PO SCH (10:29)
[2019-10-07] MEDS: DULOXETINE HCL 60 MG PO SCH (10:30)
[2019-10-07] MEDS: DULOXETINE HCL 20 MG PO SCH (10:31)
[2019-10-07] MEDS ORDERED: SODIUM CHLORIDE 0.9% 1,000 ML IV ONE (10:45)
--- NOTE | 2019-10-07 10:45 | NUR ---
WOUND CARE NOTE: IN TO SEE PATIENT AT THIS TIME PER WOUND CARE CONSULT REQUEST. [facility]NOSIS OF FLU SYMPTOMS, ESRD, DM. CURRENT ISAURO SCORE IS 17. PATIENT NOTED TO HAVE A FRICTION ABRASION THAT IS SCABBED CLOSED TO THE LEFT BKA STUMP. PATIENT USES A LEG PROSTHESIS, AND IT APPEARS TO BE THE SOURCE TO HIS FRICTION ABRASION. CURRENTLY, PATIENT HAS SCABBED CLOSED ABRASION, THAT IS DARK RED, PINK PERIWOUND. PATIENT SHOULD HAVE AN OPTIFOAM GENTLE DRESSING PLACED OVER WOUND IF HE USES HIS PROSTHESIS. SKIN/WOUND CARE PLAN IMPLEMENTED FOR ISAURO SCORE OF 17. NO WOUND CARE MONITORING IS NEEDED AT THIS TIME.
--- NOTE | 2019-10-07 12:20 | NUR ---
JUAN AT BEDSIDE, DISCUSSED PLAN OF CARE WITH PATIENT. ORDERED TO DISCONTINUE BRANTLEY CATHETER.
[2019-10-07 13:36] LABS: BUN/Creatinine Ratio 15.6; Potassium 4.8 mmol/L (3.5-5.1)
[2019-10-07 13:40] VITALS: BP 136/84
--- NOTE | 2019-10-07 13:42 | NUR ---
CALLED DR. SANTA'S OFFICE AND LEFT MESSAGE AND CALLBACK NUMBER REGARDING CRITICAL BUN VALUE OF 100mmol/L. AWAITING FOR CALL BACK FROM DOCTOR.
[2019-10-07 16:42] VITALS: BP 137/97
--- NOTE | 2019-10-07 17:01 | NUR ---
REGARDING CRITICAL. SPOKE TO Clair SANTA REGARDING CRITICAL. INFORMED OF PATIENT BUN OF 100. INFORMED OF CREATININE,POTASSIUM, AND SODIUM. NO NEW ORDERS RECEIVED.
--- NOTE | 2019-10-07 18:20 | NUR ---
INFORMED CHARGE NURSE ELSA OF SEVERAL ATTEMPT TO DISCONTINUE BRANTLEY PER DR. MARTINEZ'S ORDER. PATIENT CONTINUES TO REFUSE REMOVAL, SAYING HE IS NOT READY TO DISCONTINUE. CHARGE NURSE SPOKE TO PATIENT AND EDUCATED HIM. PATIENT IS STILL REFUSING AT THIS TIME.
--- NOTE | 2019-10-07 18:58 | NUR ---
ENDORSED TO NOC SHIFT RN PLAN TO DISCONTINUE BRANTLEY CATHETER PER MD'S ORDER.
[2019-10-07] MEDS: ATORVASTATIN 20 MG TAB PO SCH (21:31)
[2019-10-07 22:40] VITALS: BP 137/97
[2019-10-07 23:41] VITALS: BP 133/72
[2019-10-08] MEDS: SODIUM CHLORIDE 0.9% 1,000 ML IV SCH ×2 (00:48→10:12)
[2019-10-08 05:35] VITALS: BP 139/69
[2019-10-08] MEDS: INSULIN LANTUS (GLARGINE) 1 /0.01ml (100units/ml) SC SCH ×2 (06:25→22:00)
[2019-10-08] MEDS: LEVOTHYROXINE SODIUM 25 MCG TAB PO SCH (06:26)
[2019-10-08] MEDS: ACCU-CHEK COMFORT CURVE STRIP VI SCH ×4 (06:27→22:02)
[2019-10-08] MEDS: InsuLIN REG 1unit/0.01ml Soln (100units/ml) SC SCH ×4 (06:27→22:02)
[2019-10-08] MEDS: IPRATROPIUM BROM 0.5 MG/2.5ML INH SOL NEB SCH ×5 (06:53→22:57)
[2019-10-08] MEDS: ALBUTEROL SULF 2.5 MG/0.5ML(0.5%) NEB SOLN NEB SCH ×5 (06:53→22:56)
--- NOTE | 2019-10-08 06:59 | NUR ---
recd pt off cpap and on 3lnc, spo2 91%.
[2019-10-08 08:55] VITALS: BP 134/67
--- NOTE | 2019-10-08 09:21 | NUR ---
CALLED RADIOLOGY, ASKED IF PATIENT IS TO GET DIALYSIS CATHETER PLACED TODAY, TECH REPORTS DR SEGOVIA IS NOT IN AT THE MOMENT, AND TO CALL BACK. Addendum: 10/08/19 at 0923 by MARAL SHANNON RN PT WAS EDUCATED TO HAVE NOTHING BY MOUTH FOR PROCEDURE TODAY, PT VERBALIZED UNDERSTANDING.
[2019-10-08] MEDS: DULOXETINE HCL 60 MG PO SCH (10:10)
[2019-10-08] MEDS: DULOXETINE HCL 20 MG PO SCH (10:10)
[2019-10-08] MEDS: predniSONE 20 MG TAB PO SCH (10:11)
[2019-10-08] MEDS: CHOLECALCIFEROL (VITD3) 1,000IU=25mCg TAB PO SCH (10:11)
[2019-10-08] MEDS: amLODIPine BESYLATE 5 MG TAB PO SCH (10:12)
[2019-10-08] MEDS: MORPHINE SULFATE 4 MG/ML SYR/VIAL IV PRN (10:13)
--- NOTE | 2019-10-08 10:55 | NUR ---
DR TOVAR SAW PATIENT, MD REPORTS PT WILL HAVE DIALYSIS TOMORROW, PENDING CATHETER PLACEMENT. CALLED RADIOLOGY AGAIN, NO ANSWER.Caden MARTINEZ SAW PATIENT AND DISCUSSED POC. REPORTS TO CALL HIM IF POT LEVEL GREATER THAN 5.2, LABS PENDING.
--- NOTE | 2019-10-08 11:05 | NUR ---
1000 MED NEB TX NOT ADMINISTERED. PT WITH PHYSICAL THERAPY BOTH TIMES I WENT INTO ROOM TO CHECK PT READINESS FOR HHN TX. WILL FOLLOW UP WITH NEXT SCHEDULED TX.
[2019-10-08] MEDS ORDERED: ERGOCALCIFEROL 50,000 UNIT(1.25MG) CAP PO SCH (11:30)
--- NOTE | 2019-10-08 11:55 | NUR ---
CALLED RADIOLOGY AND CADD OPERATOR, BOTH REPORT THEY DON'T HAVE PATIENT SCHEDULED FOR PROCEDURE. CALLED AND LEFT MESSAGE FOR DR MARTINEZ, NOTIFYING MD, AWAITING CALL BACK.
--- NOTE | 2019-10-08 11:56 | NUR ---
CALLED DR TOVAR TO NOTIFY PT IS NOT SCHEDULED FOR DIALYSIS CATHETER PLACEMENT TODAY. PBX SAYS THEY ARE UNABLE TO CONNECT, THE LINE IS BUSY.
[2019-10-08 12:12] LABS: BUN/Creatinine Ratio 15.8; Calcium 7.4 mg/dL (8.5-10.1); Potassium 5.1 mmol/L (3.5-5.1)
--- NOTE | 2019-10-08 12:33 | NUR ---
LAB CALLED, PT HAS CRITICAL BUN OF 105 AND POT 5.1, CALLED DR MARTINEZ, NOTIFIED MD OF BUN, POT AND PT IS NOT ON SCHEDULE FOR CATHETER PLACEMENT. MD REPORTS TO CALL DR SEGOVIA. CALLED DR SEGOVIA, NOTIFIED MD PT NEEDS DIALYSIS CATHETER. HE REPORTS TO PUT IN RADIOLOGY CONSULT FOR CATHETER PLACEMENT, CALLED DR MARTINEZ AND NOTIFIED HIM, MD AWARE.
[2019-10-08] MEDS ORDERED: LIDOCAINE 2%HCL (LOCAL ANESTH.) INJ 20ML MDV ONE ×4 (12:55→15:16)
--- NOTE | 2019-10-08 13:14 | NUR ---
EMERGENCY COMMUNICATIONS OFFICER CALLED, THEY REPORT TO BRING PATIENT DOWN. PATIENT LEFT FLOOR VIA BED AND STAFF, NO DISTRESS NOTED.
[2019-10-08] MEDS: FUROSEMIDE 100 MG/10ML VIAL IV SCH (13:18)
[2019-10-08] MEDS: levoFLOXacin 750MG 150 ML IV SCH (13:19)
[2019-10-08] MEDS ORDERED: HEPARIN SODIUM (PORCINE) 5000 UNITS/ML 1ML VIAL ONE ×2 (13:20→15:41)
[2019-10-08] MEDS ORDERED: MIDAZOLAM HCL 1MG/1ML-2 ML VIAL ONE ×2 (13:20→14:06)
[2019-10-08] MEDS ORDERED: fentaNYL CITRATE 100 MCG/2 ML VL ONE ×2 (13:20→14:06)
[2019-10-08 13:45] LABS: INR 0.98 (0.9-1.15)
[2019-10-08] MEDS ORDERED: fentaNYL CITRATE 100 MCG/2 ML VL IV ONE (14:00)
[2019-10-08] MEDS ORDERED: MIDAZOLAM HCL 1MG/1ML-2 ML VIAL IV ONE (14:00)
--- NOTE | 2019-10-08 14:18 | NUR ---
1400 SCHEDULED HHN TX NOT ADMINISTERED. PT NOT IN ROOM AND RECEIVING DIALYSIS CATHETER. BRENDON LOAIZA AWARE OF MISSED TX. WILL CONTINUE TO MONITOR. MEDS RETURNED TO [facility].
--- NOTE | 2019-10-08 15:52 | NUR ---
D/C Planning Per SS consult for outpatient dialysis chair time. Faxed medical records to [facility]. Placed followed up called to [facility] Ph: ext. [phone]). Per Velia with [facility] they are reviewing order and will provided chair time tomorrow Tuesday10/09/2019.
--- NOTE | 2019-10-08 16:28 | NUR ---
PT RETURNED TO FLOOR FROM O.R. VIA BED. DOUBLE LUMEN DIALYSIS CATHETER PLACED UU CHEST. CATHETER IN TACT. MINIMAL BLOODY NOTED AT SITE UNDER TEGADERM. PT GOWN AND CHUCKS CHANGED. PT REPORTS NO PAIN AT THIS TIME. VITALS: 130/72, 92%, HR 89, RR 17, T 95.6. UNABLE TO GET GOOD READING, WILL REASSESS IN 20 MINUTES. MORE BLANKETS PLACED ON PATIENT. Addendum: 10/08/19 at 1748 by MARAL SHANNON RN 02 92% ON 4 L NC.
[2019-10-08 17:00] VITALS: BP 130/72
--- NOTE | 2019-10-08 17:00 | NUR ---
RECHECKED TEMP, TEMP 96.0. ANOTHER B;MICHA ADDED. PT REPORTS NO DISTRESS, PT REPORTS HE IS SLEEPY.
--- NOTE | 2019-10-08 17:52 | NUR ---
NOTIFIED CHARGE PT TEMP 96.0, CHARGE AWARE, CHARGE REPORTS TO CALL DIRECTOR RETIREMENT AND GET WARMING BLANKET FROM [employer] CALLED LEEANNE, LEEANNE REPORTS SHE WILL GET BLANKET.
--- NOTE | 2019-10-08 18:31 | NUR ---
HEATING BLANKET BROUGHT. INULIN HELD, PT HAS BEEN NPO ALL DAY, DINNER NOT HERE YET. DO NOT WANT SUGAR TO DROP.
--- NOTE | 2019-10-08 19:20 | NUR ---
RN assessed patient's temp and noted it to be reading at 95.4 degree F. RN repositioned patient and applied multiple blankets. RN then paged Primary MD.
--- NOTE | 2019-10-08 19:40 | NUR ---
RN reassessed patient's temp and got a reading of 94.2. RN ensured blankets were on patient and provided a warmed blanket as well. Patient asymptomatic and remains in no discomfort or distress.
--- NOTE | 2019-10-08 19:50 | NUR ---
Primary MD returned page: RN notified MD of patient's condition and situation. Patient Asymptomatic and in no current discomfort or distress. RN received new orders for bear hugger warming blanket. Order verified.
[2019-10-08 21:50] VITALS: BP 126/70
[2019-10-08] MEDS: ATORVASTATIN 20 MG TAB PO SCH (22:02)
--- NOTE | 2019-10-08 22:03 | NUR ---
Patient temp: Patient temp now 97.5. RN will continue to monitor. Patient also refused 2200 Lantus. Only took regular insulin
[2019-10-09] VITALS (7 sets, daily range): BP systolic 132–164; BP diastolic 71–93
--- NOTE | 2019-10-09 05:41 | NUR ---
Bedside commode: Patient was assisted to the bedside commode. Patient stated he feels like having a BM. Complete linen change was performed while patient was sitting on bedside commode.
[2019-10-09 05:43] LABS: Hematocrit 29.8 % (41.0-53.0); Mean Corpuscular Hemoglobin 29.9 pg (28.0-32.0); Mean Corpuscular Hgb Conc. 33.5 g/dL (32.0-36.0); Mean Corpuscular Volume 89.1 fL (80.0-100.0); Platelet Count (auto) 167 10^3/uL (140-450); Red Blood Cells 3.34 10^6/uL (4.5-5.90); Red Cell Distribution Width 14.3 % (11.8-14.3); White Blood Cell 10.8 10^3/uL (4.4-10.8)
[2019-10-09 06:00] LABS: BUN/Creatinine Ratio 16.1; Calcium 7.3 mg/dL (8.5-10.1); Magnesium 1.8 mg/dL (1.6-2.6); Potassium 4.9 mmol/L (3.5-5.1)
[2019-10-09] MEDS: ALBUTEROL SULF 2.5 MG/0.5ML(0.5%) NEB SOLN NEB SCH ×5 (06:11→22:02)
[2019-10-09] MEDS: IPRATROPIUM BROM 0.5 MG/2.5ML INH SOL NEB SCH ×5 (06:11→22:02)
--- NOTE | 2019-10-09 06:11 | NUR ---
RT NOTE: PT RECEIVED WITH BIPAP IN CPAP MODE ALREADY OFF AND ON 4L NC. SPO2 93 HR 72 RR 20. NO SIGNS OF RESPIRATORY DISTRESS NOTED. RN BEDSIDE. WILL CONTINUE TO MONITOR.
--- NOTE | 2019-10-09 06:17 | NUR ---
Patient informed RN he will not want to take his 0700 Synthriod this AM.
[2019-10-09] MEDS: LEVOTHYROXINE SODIUM 25 MCG TAB PO SCH (06:30)
[2019-10-09] MEDS: ACCU-CHEK COMFORT CURVE STRIP VI SCH ×4 (06:30→22:00)
[2019-10-09] MEDS: InsuLIN REG 1unit/0.01ml Soln (100units/ml) SC SCH ×4 (06:31→22:26)
[2019-10-09] MEDS ORDERED: SODIUM CHL 0.9% 1000 ML BAG XX ONE (07:00)
[2019-10-09 07:02] LABS: Band Neutrophils % (manual) 0; Basophils % (manual) 0 (0.0-2.0); Blast Cells 0; Eosinophils % (manual) 0 (0-7); Metamyelocytes % 0; Myelocytes % 0; Promyelocytes % 0; Reactive Lymphocytes 0
--- NOTE | 2019-10-09 07:20 | NUR ---
LORIE FROM [facility] IS AT NURSING STATION AND REPORTS HE WILL ASSIGN PATIENT SO PATIENT RECEIVES DIALYSIS TODAY.
[2019-10-09 07:52] LABS: Lymphocytes % (manual) 6 (10.0-50.0); Monocytes % (manual) 3 (0-12)
[2019-10-09] MEDS: FUROSEMIDE 100 MG/10ML VIAL IV SCH (09:28)
[2019-10-09] MEDS: amLODIPine BESYLATE 5 MG TAB PO SCH ×2 (09:29→10:15)
[2019-10-09] MEDS: MORPHINE SULFATE 4 MG/ML SYR/VIAL IV PRN ×2 (09:43→22:15)
[2019-10-09] MEDS: DULOXETINE HCL 60 MG PO SCH (09:44)
[2019-10-09] MEDS: DULOXETINE HCL 20 MG PO SCH (09:44)
[2019-10-09] MEDS: predniSONE 20 MG TAB PO SCH (09:45)
[2019-10-09] MEDS: INSULIN LANTUS (GLARGINE) 1 /0.01ml (100units/ml) SC SCH ×2 (09:48→22:27)
--- NOTE | 2019-10-09 10:00 | NUR ---
AM BLOOD PRESSURE MEDS HELD FOR DIALYSIS TODAY.
[2019-10-09] MEDS: CALCIUM ACETATE 667 MG CAP PO SCH ×2 (12:05→17:29)
--- NOTE | 2019-10-09 13:05 | NUR ---
CALLED [facility] TO FOLLOW UP ON DIALYSIS. SPOKE WITH JOHN, JOHN REPORTS PT IS ON THE LIST TO GET DIALYSIS TODAY, BUT SHE CANNOT GIVE AN EXACT TIME.
--- NOTE | 2019-10-09 14:22 | NUR ---
RT NOTE: UNABLE TO GIVE TX DUE TO PT HAVING A BEDSIDE PROCEDURE DONE. WILL CONTINUE TO MONITOR.
--- NOTE | 2019-10-09 14:32 | NUR ---
[facility] DIALYSIS NURSE HERE TO DIALYZE PATIENT.
--- NOTE | 2019-10-09 15:21 | NUR ---
assessment Patient is a 48 year old male who is alert and oriented. Patients cognitive abilities are intact. Prior to admission patient lived home with family and functioned with assistance. Per patient he will return home to his prior living arrangements post discharge and family will transport him home. Patient informed me his PCP is Dr Tena in [place]. Patient informed me he has a wheelchair and fww for home use. Patient has been informed of his consult for new dialysis chair time. Patient agrees and is dealing well with his new diagnosis of dialysis. Trinh KHAN will satisfy order. I informed patient he has a right to speak to a social service manager regarding all care. I informed patient he has a right to participate in any and all discharge planning. Patient does not have a POA and advanced directive. I have offered patient information on POA and advanced directives. I informed the patient the advantages and benefits of having an Advanced Directive. Patient verbalized understanding and agreed to discharge plan. Addendum: 10/09/19 at 1527 by Gricelda CAMPUZANO Amended: Links added.
--- NOTE | 2019-10-09 15:22 | NUR ---
D/C Planning Placed followed up called to Velia with [facility]. Per Velia chair time for patient will be on Tuesday, Tuesday and Fridays at 13:30 at [address], [place] [address]. Patient needs to arrived 15 minutes before his chair time to fill out paper work.
--- NOTE | 2019-10-09 16:00 | NUR ---
PT STILL RECEIVING DIALYSIS. APPROX 900 MLS SLIGHTLY CLOUDY YELLOW URINE DRAINED FROM BRANTLEY.
--- NOTE | 2019-10-09 17:30 | NUR ---
1700 INSULIN AND SHANEL HELD, PT STILL ON DIALYSIS.
--- NOTE | 2019-10-09 18:33 | NUR ---
CALLED DR DYER'S OFFICE TO NOTIFY PT HAS BEEN TRANSFERRED TO HIM FROM DR MARTINEZ, NO ANSWER, LEFT MESSAGE, AWAITING CALL BACK.
--- NOTE | 2019-10-09 18:48 | NUR ---
PATIENT FINISHED DIALYSIS, [facility] RN REPORTS SHE TOOK OFF 2L. PT SITTING UP ON SIDE OF BED READY TO EAT DINNER. VITALS: T 97.8, BP 136/77, HR 98, 02 94% ON 4L NC RR 20. WILL CONTINUE TO MONITOR.
--- NOTE | 2019-10-09 19:15 | NUR ---
Received report from the Day Shift BRENDON Hamilton. Initial assessment done. Pt. in bed resting, calm and quiet.
--- NOTE | 2019-10-09 19:30 | NUR ---
Pt. on Tele # 25, SR @ the monitor @ the 80's per minute.
--- NOTE | 2019-10-09 19:50 | NUR ---
Pt.'s sister name Monse called and gave the Password [place], expressed her desire to visit pt. Monse just want to know how he's doing.
--- NOTE | 2019-10-09 20:00 | NUR ---
Pt. SR with HR @ 88 with BBB.
[2019-10-09] MEDS ORDERED: EPOETIN ALFA 10,000 UNIT/1 ML VIAL SC ONE (21:00)
[2019-10-09] MEDS: ATORVASTATIN 20 MG TAB PO SCH (21:55)
--- NOTE | 2019-10-09 21:55 | NUR ---
Meds. as scheduled given. Pt. made aware of the meds. as scheduled and given health teaching of its mechanism of actions or indications. Pt. verbalized partial understanding. Provided pt. assistance with the activities of daily living. Maintained pt. safety.
--- NOTE | 2019-10-09 22:02 | NUR ---
Pt. receiving breathing treatment as due neb. @ this time. RT @ the bedside given/administering nebulizer inhalation as ordered by the Doctor.
[2019-10-09] MEDS: guaiFENesin-DM 100/10mg/5ml SYR PO PRN (22:13)
--- NOTE | 2019-10-09 22:15 | NUR ---
Pt. given Morphine Sulfate 2 mg. IVP for severe pain about 10/10 scale @ the neck, back and generalized body pains. Pt. made aware of the use of the pain reliever. Pt. verbalized partial understanding.
--- NOTE | 2019-10-09 22:45 | NUR ---
Pt. denies pain @ this time. No s/s of discomfort @ the time. Pt. get ready for sleep. Provided assistance with adl's, hygiene and toileting with the help of the PROCESS SAFETY SPECIALIST. Pt. repositioned to the bed comfortably. Keep pt. clean, dry, warm and safe in bed. Call-light within reach.
--- NOTE | 2019-10-09 23:00 | NUR ---
Pt. on CPAP continuous as placed by the RT for night time. Keep HOB up and reenforced blanket. Maintained pt. safety and keep environment quiet and room dim-lighted to facilitate sleep and rest.
--- NOTE | 2019-10-10 | NUR ---
Pt. on Tele # 25 , SR @ the 80's per minute with BBB. Pt. denies pain @ this time. Pt. on CPAP continuous per RT protocol. Maintined pt. safety in bed.
--- NOTE | 2019-10-10 02:00 | NUR ---
Pt. sleeping undisturbed. SR @ the monitor.
--- NOTE | 2019-10-10 04:00 | NUR ---
Pt. resting and sleeping. SR @ the monitor @ the 60's per minute. Pt.'s rounding done.
[2019-10-10 05:00] VITALS: BP 117/54
[2019-10-10] MEDS: LEVOTHYROXINE SODIUM 25 MCG TAB PO SCH (06:36)
--- NOTE | 2019-10-10 06:39 | NUR ---
Accucheck taken with result of BS = 172 , pt. will be given coverage per s/s of Regular Human Insulin - see Emar.
[2019-10-10] MEDS: ACCU-CHEK COMFORT CURVE STRIP VI SCH ×4 (06:40→22:20)
[2019-10-10] MEDS: InsuLIN REG 1unit/0.01ml Soln (100units/ml) SC SCH ×4 (06:58→23:05)
[2019-10-10] MEDS: IPRATROPIUM BROM 0.5 MG/2.5ML INH SOL NEB SCH ×5 (08:15→22:37)
[2019-10-10] MEDS: ALBUTEROL SULF 2.5 MG/0.5ML(0.5%) NEB SOLN NEB SCH ×5 (08:15→22:37)
[2019-10-10] MEDS: CALCIUM ACETATE 667 MG CAP PO SCH ×3 (08:39→17:51)
[2019-10-10] MEDS: MORPHINE SULFATE 4 MG/ML SYR/VIAL IV PRN ×2 (08:40→21:00)
--- NOTE | 2019-10-10 08:40 | NUR ---
RECEIVED REPORT FROM NOC SHIFT BRENDON WILSON, PER RN AWARE OF CRITICAL LAB VALUE BUN OF 105. PATIENT SITTING UP IN BED EATING BREAKFAST, PATIENT ON 3L NC AND ON CONTINUOUS PULSE OX WITH AN OXYGEN SATURATION OF 93%. BRANTLEY CATHETER HUNG TO GRAVITY AND DRAINING CLEAR URINE. PATIENT C/O LEFT LEG PAIN WELL GENERALIZED. PATIENT REQUESTS PAIN MEDICATION, WILL COMPLETE ASSESSMENT AND ADMINISTER PRN PER ORDER, AND REASSESS ACCORDINGLY. RIGHT FA IV REDDENED AND TENDER, WILL DC. RIGHT UPPER ARM MIDLINE PATENT.
[2019-10-10 09:00] VITALS: BP 128/71
[2019-10-10] MEDS: FUROSEMIDE 100 MG/10ML VIAL IV SCH (10:28)
[2019-10-10] MEDS: B-COMPLEX W/ C & FOLIC ACID(NEPHROVITE TAB) PO SCH (10:28)
[2019-10-10] MEDS: amLODIPine BESYLATE 5 MG TAB PO SCH (10:29)
[2019-10-10] MEDS: DULOXETINE HCL 60 MG PO SCH (10:29)
[2019-10-10] MEDS: predniSONE 20 MG TAB PO SCH (10:29)
[2019-10-10] MEDS: DULOXETINE HCL 20 MG PO SCH (10:30)
[2019-10-10] MEDS: INSULIN LANTUS (GLARGINE) 1 /0.01ml (100units/ml) SC SCH ×2 (10:44→23:05)
--- NOTE | 2019-10-10 11:18 | NUR ---
WOUND CARE NOTE: IN TO SEE PATIENT AT THIS TIME FOR SCABBED ABRASION TO THE LEFT BKA STUMP. PATIENT ADMITTED TO [facility] WITH DIAGNOSIS OF PNA. CURRENT ISAURO SCORE OF 17. 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 PATIENT WEARS A PROSTHESIS FOR AMBULATION. HE HAS RECEIVED A FRICTION ULCERATION TO THE STUMP THAT IS COVERED WITH DARK RED ESCHAR. THERE IS A SMALL SERUM FILLED BLISTER NEXT TO IT. PATIENT HAS NO OPEN OR DRAINING AREAS NOTED. APPLIED OPTIFOAM GENTLE DRESSING TO COVER AND PROTECT. PATIENT EDUCATED AT THIS TIME ON NEED TO HAVE PROSTHESIS REPAIRED, IT IS CAUSING FRICTION/PRESSURE TO HIS STUMP. PATIENT VERBALIZED UNDERSTANDING, STATING HE WILL GO ON TUESDAY TO SEE IF THEY CAN REPAIR HIS PROSTHESIS. NO OTHER SKIN INTEGRITY ISSUES NOTED. RECOMMEND: EOD/PRN OPTIFOAM GENTLE DRESSING TO LEFT BKA STUMP TO COVER AND PROTECT, SKIN/WOUND CARE PLAN. NO FURTHER WOUND CARE MONITORING IS NEEDED AT THIS TIME.
--- NOTE | 2019-10-10 11:20 | NUR ---
DR DYER AT BED SIDE DISCUSSING POC WITH PATIENT. PATIENT VERBALIZES UNDERSTANDING.
[2019-10-10] MEDS: levoFLOXacin 750MG 150 ML IV SCH (11:29)
--- NOTE | 2019-10-10 11:58 | NUR ---
DR TOVAR (TOOL SMITH) AT BED SIDE. PATIENT VERBALIZES UNDERSTANDING ON HD SCHEDULE.
--- NOTE | 2019-10-10 12:00 | NUR ---
PER ESTER De Dios, FNPS. [facility] REQUESTING HEP B TITER RESULTS BEFORE PATIENT RECEIVES 1ST TX AT FACILITY ON TUESDAY. WILL ORDER HEP B LAB PER PROTOCOL
--- NOTE | 2019-10-10 12:00 | NUR ---
WOUND CONSULT CARTOGRAPHIC TECHNICIAN AT BED SIDE. OPTIFOAM ON LEFT STUMP PER ORDER. TO BE CHANGED PRN. NO FURTHER ORDERS RECEIVED. WILL CONTINUE TO MONITOR.
[2019-10-10 13:00] VITALS: BP 127/75
--- NOTE | 2019-10-10 13:00 | NUR ---
Respiratory note: ABG DRAWN TO VERIFY IF PT QUALIFIES FOR HOME O2. PT PO2 IS 50.3. RN MADE AWARE THAT PT QUALIFIES FOR HOME O2.
--- NOTE | 2019-10-10 13:24 | NUR ---
Nutrition Follow-up Notes Wt.: 178.4 kg. Pt currently on CCHO 60g, Renal diet with fair appetite aeb avg 71% PO intake. Est energy needs: 8335-9017 kcals (12-15 kcal/kgBW), Est protein needs: 76-95 gms/day (0.8-1.0 gm/kgAdjBW). Will continue to monitor pertinent labs and reassess nutrient needs prn Labs 10/08: Na 129 L, CO2 17 L, BUN 105 H, Cr 6.52 H, serum glucose 197 H, Ca 7.3 L Skin: Amarjit scale 17, mod risk, L BKA and R 5th digit amputation per bulldozer mechanic. GI: Pt had BM 10/08/19 per bulldozer mechanic. PES: 1) Obesity r/t energy intake in excess of energy needs aeb 243% IBW and BMI of 54.5 kg/m2 2) Limited adherence to nutrition related recommendations r/t food and nutrition related knowledge deficit aeb hyperglycemia, elev A1c, and request for dietary information 3) Altered nutrition related lab values r/t current/chronic medical condition aeb hyperglycemia, elev A1c,hypocalc, severe hypoalb, low GFR Will continue to monitor PO intake, skin status, pertinent labs and weight trend. F/u in 3 to 5 days. Recommendations: 1) Continue to closely monitor pt PO intake to meet a goal of at least 75% of meals eaten 2) Refer pt to RD/CDE for nutrition education upon D/C 3) Continue current plan of care
--- NOTE | 2019-10-10 13:30 | NUR ---
PHYSICAL THERAPY PATIENT UP ON WALKER WITH PHYSICAL THERAPIST YASHIRA
--- NOTE | 2019-10-10 14:06 | NUR ---
ABG PATIENT QUALIFIES FOR HOME O2. HOME O2 REQUEST IN SOCIAL SERVICE CONSULT.
[2019-10-10 17:00] VITALS: BP 127/80
--- NOTE | 2019-10-10 19:12 | NUR ---
AT BEDSIDE FOR MEDNEB. PT POX 84% ON 3L NC. MED NEB GIVEN WITH SUBJECTIVE RELIEF. FIO2 INCREASED TO 5L POST TX POX 95%
[2019-10-10 22:00] VITALS: BP 140/77
[2019-10-10] MEDS: ATORVASTATIN 20 MG TAB PO SCH (22:20)
--- NOTE | 2019-10-11 02:00 | NUR ---
RECEIVED REPORT FROM OUTGOING PIGMENT MAKING SUPERVISOR RN ASSUMING ROLE OF CARE OF PATIENT AT THIS TIME. PATIENT SHOWING NO SIGN OF DISTRESS, SHORTNESS OF BREATH, AND PATIENT DENIES ANY PAIN. PATIENT RESTING COMFORTABLY AT THIS TIME. PATIENT REQUESTING TO HAVE CPAP REMOVED. RT INFORMED AND PATIENT PLACED BACK ON NC O2. PATIENT TOLERATING WELL. PATIENT INFORMED OF CHANGE IN STAFFING AND PATIENT VERBALIZED UNDERSTANDING. BED LOWERED, CALL LIGHT WITHIN REACH, AND PATIENT WILL BE ROUNDED ON EVERY HOUR AND NEEDED.
--- NOTE | 2019-10-11 02:07 | NUR ---
PT REMOVED CPAP MASK. STATES HE CAN NO LONGER WEAR. PT RETURNED TO 3L NC POX 94%
[2019-10-11 05:52] VITALS: BP 108/77
[2019-10-11] MEDS: InsuLIN REG 1unit/0.01ml Soln (100units/ml) SC SCH ×4 (06:09→21:53)
[2019-10-11] MEDS: ACCU-CHEK COMFORT CURVE STRIP VI SCH ×4 (06:11→21:52)
[2019-10-11] MEDS: LEVOTHYROXINE SODIUM 25 MCG TAB PO SCH (06:11)
[2019-10-11] MEDS ORDERED: SODIUM CHL 0.9% 1000 ML BAG XX ONE (07:00)
[2019-10-11] MEDS: CALCIUM ACETATE 667 MG CAP PO SCH ×3 (08:14→18:13)
[2019-10-11] MEDS: MORPHINE SULFATE 4 MG/ML SYR/VIAL IV PRN ×2 (08:18→19:00)
[2019-10-11 08:58] VITALS: BP 130/52
[2019-10-11] MEDS: amLODIPine BESYLATE 5 MG TAB PO SCH (10:14)
[2019-10-11] MEDS: B-COMPLEX W/ C & FOLIC ACID(NEPHROVITE TAB) PO SCH (10:14)
[2019-10-11] MEDS: predniSONE 20 MG TAB PO SCH (10:14)
[2019-10-11] MEDS: DULOXETINE HCL 20 MG PO SCH (10:15)
[2019-10-11] MEDS: DULOXETINE HCL 60 MG PO SCH (10:15)
[2019-10-11] MEDS: FUROSEMIDE 100 MG/10ML VIAL IV SCH (10:15)
[2019-10-11] MEDS: INSULIN LANTUS (GLARGINE) 1 /0.01ml (100units/ml) SC SCH ×2 (10:18→21:52)
[2019-10-11 13:00] VITALS: BP 126/79
--- NOTE | 2019-10-11 15:32 | NUR ---
D/C Planning Per consult for home health wound care leg stump, physical therapy, hospital bed and oxygen at 2 l/min continuous. Faxed order to [facility]. Per Nataly with [facility] health ) patient has been accepted and service to start within 24-48hrs upon d/c day. Faxed order to for oxygen and hospital bed. Faxed order to [facility] requesting authorization for [employer]. Per Ashely with [facility] authorization for home health is [id number]. Per Sophy with [facility] oxygen and hospital bed has been approved [id number]. Placed followed up called to spoke to Noreen. Per Noreen with oxygen has been deliver to patient at bedside and hospital bed will be deliver to home. BRENDON Golden was informed of d/c plan.
--- NOTE | 2019-10-11 16:51 | NUR ---
BRENDON Golden advised me at 16:45 patient needs transportation home and stated caregiver is unable to transport him home. Informed BRENDON Golden [facility] transport closes at 17:00 however, I will still faxed. Faxed order to [facility] and received a confirmation fax at 16:47. Requested for transportation picking machine operator helper to be at 18:30 via gurney with oxygen. BRENDON Golden was informed.
[2019-10-11 16:56] VITALS: BP 133/79
[2019-10-11] MEDS: IPRATROPIUM BROM 0.5 MG/2.5ML INH SOL NEB SCH ×2 (18:43→21:59)
[2019-10-11] MEDS: ALBUTEROL SULF 2.5 MG/0.5ML(0.5%) NEB SOLN NEB SCH ×2 (18:43→21:59)
--- NOTE | 2019-10-11 18:48 | NUR ---
RT NOTE PT WAS SEEN BY RT FOR HHN TX. PT TOLERATES WELL VIA MASK. NO ADVERSE REACTION NOTED. PT FOUND ON ROOM AIR WITH SATS 82-89%, ENCOURAGED PT TO WEAR NASAL CANNULA WHEN NOT ON CPAP. CONT ORDERED Addendum: 10/11/19 at 1849 by Izabella Basilio RT Amended: Links added.
--- NOTE | 2019-10-11 19:30 | NUR ---
Opening Shift Note Received report from [place] OLIVAS. Assumed care of patient, awake and alert. No S/S of distress/SOB or pain. Instructed on POC and to call for assist PRN. Fall precaution measures in place, will continue to monitor for changes Q1hr and PRN.
[2019-10-11] MEDS ORDERED: EPOETIN ALFA 10,000 UNIT/1 ML VIAL SC ONE (21:00)
--- NOTE | 2019-10-11 21:26 | NUR ---
Patient's healthcare sales representative/sister Asia called to inform that bed hasn't been delivered at home so the patient cannot go home. She threw away the patient's old bed since it's already old and broken. Per Asia, patient also needs bedside commode.
--- NOTE | 2019-10-11 21:30 | NUR ---
Call to Dr. Bowers's exchange to inform that the patient is still in the hospital. Per exchange, Dr. Simpson is covering and went straight to voice mail, RN left message.
[2019-10-11] MEDS: ATORVASTATIN 20 MG TAB PO SCH (21:51)
[2019-10-11 22:00] VITALS: BP 139/86
--- NOTE | 2019-10-11 22:03 | NUR ---
RT NOTE PT WAS SEEN BY RT FOR HHN TX. PT TOLERATES WELL VIA MASK. NO ADVERSE REACTION NOTED. PT STATES HE WON'T BE READY FOR CPAP UNTIL CLOSER TO MIDNIGHT. RT WILL RETURN AROUND MIDNIGHT FOR PLACEMENT. CONT ORDERED Addendum: 10/11/19 at 2205 by Izabella Basilio RT Amended: Links added.
--- NOTE | 2019-10-11 23:57 | NUR ---
Spoke to Dr. Simpson who is covering for Dr. Bowers regarding discharge if he can hold it since per patient's caregiver, hospital bed was not delivered today. Per Dr. Simpson, he cannot hold the discharge and just speak to Dr. Bowers in the morning.
--- NOTE | 2019-10-12 02:05 | NUR ---
RT NOTE PT WAS SEEN BY RT FOR ROUTINE CPAP CHECK. PT WAS FOUND OF CPAP AND MACHINE WAS TURNED OFF. SPOKE WITH BRENDON JOHNSON AND SHE STATED THE PT WANTED TO COME OFF AROUND 0100 AND SO SHE TOOK HIM OFF AND TURNED OFF THE MACHINE. PT IS STILL ON BEDSIDE POX FOR OBSERVATION PURPOSES. CONT ORDERED Addendum: 10/12/19 at 0226 by Izabella Basilio RT Amended: Links added.
[2019-10-12 05:00] VITALS: BP 144/91
[2019-10-12] MEDS: InsuLIN REG 1unit/0.01ml Soln (100units/ml) SC SCH (06:39)
[2019-10-12] MEDS: LEVOTHYROXINE SODIUM 25 MCG TAB PO SCH (06:39)
[2019-10-12] MEDS: ACCU-CHEK COMFORT CURVE STRIP VI SCH (06:39)
[2019-10-12] MEDS: ALBUTEROL SULF 2.5 MG/0.5ML(0.5%) NEB SOLN NEB SCH ×2 (07:06→10:34)
[2019-10-12] MEDS: IPRATROPIUM BROM 0.5 MG/2.5ML INH SOL NEB SCH ×2 (07:06→10:34)
[2019-10-12 08:00] VITALS: BP 141/78
--- NOTE | 2019-10-12 08:07 | NUR ---
CALLED AND LEFT MESSAGE FOR ESTER . WILL AWAIT RETURN PHONE CALL.
--- NOTE | 2019-10-12 08:26 | NUR ---
inbound call center representative 10/11/19-I received a page from nurse Golden asking about the patient's ordered hospital bed-according to patient/family he can't go home because they got rid of his bed in anticipation of receiving the hospital bed. I let nurse Golden know that there was nothing I could do at this time about the hospital bed because the office was closed.
[2019-10-12 08:49] VITALS: BP 144/91
[2019-10-12] MEDS: DULOXETINE HCL 20 MG PO SCH (10:31)
[2019-10-12] MEDS: predniSONE 20 MG TAB PO SCH (10:31)
[2019-10-12] MEDS: DULOXETINE HCL 60 MG PO SCH (10:31)
[2019-10-12] MEDS: B-COMPLEX W/ C & FOLIC ACID(NEPHROVITE TAB) PO SCH (10:31)
[2019-10-12] MEDS: amLODIPine BESYLATE 5 MG TAB PO SCH (10:32)
[2019-10-12] MEDS: INSULIN LANTUS (GLARGINE) 1 /0.01ml (100units/ml) SC SCH (10:33)
--- NOTE | 2019-10-12 10:45 | NUR ---
SPOKE TO DR DYER AND RECEIVED ORDERS TO REMOVE BRANTLEY.
--- NOTE | 2019-10-12 11:05 | NUR ---
PATIENT URINATED USING URINAL.
--- NOTE | 2019-10-12 11:11 | NUR ---
D/C planning engineer Salina advised me patient needs a bedside commode and order will be put in. Faxed order to [facility] requesting for bed side commode to be deliver to patient home. Faxed order to [facility] requesting authorization for [facility]. Clifford Lund with [facility] authorization is [id number]. Transportation has been arrange with [employer] ( ) at 11 am via [employer]. Per Noreen with [facility] they have been trying to reach patient or caregiver since 10/11/2019 to deliver bed hospital however they never return call until today Tuesday. Per Noreen they will deliver hospital bed between 12-14:00. Advised patient he has Dialysis today at 13:30 at [place] [address] in [place]. Patient verbalize understating d/c plan. BRENDON Mcbride was informed of d/c plan.
--- NOTE | 2019-10-12 11:30 | NUR ---
WOUND PHOTOS TAKEN. PATIENT REPORTS THAT HE GOT A CUT ON RIGHT GREAT TOE BY HITTING THE FOOT OF THE BED DURING THE NIGHT. UPON ASSESSMENT IN THE MORNING IT WAS SUNG LIKE AN ABRASION UPON DISCHARGE PHOTO TAKEN AND WOUND OPEN. DRESSED WITH OPTIFOAM AND EDUCATED PATIENT.
--- NOTE | 2019-10-12 11:40 | NUR ---
Discharge instructions given as ordered. Encourage to follow up with PMD as instructed. All questions and concerns addressed. Patient verbalized understanding. Medication reconciliation form completed and copy given to patient. Home medications held in Pharmacy returned to patient, and no needed vaccines given. IV removed with catheter intact, midline removed with catheter intact, pressure dressing applied, paulino catheter removed. Telemetry unit returned to ICU. Patient taken to vehicle via gurney with transport and all personal belongings, accompanied by transportation staff. No distress noted at time of departure.
[2019-10-12] MEDS: CALCIUM ACETATE 667 MG CAP PO SCH (12:19)
[2019-10-12] MEDS: FUROSEMIDE 100 MG/10ML VIAL IV SCH (12:20)
== END 2019-10-12 12:00 | disposition home or self-care (01) | DRG 194 ==
LOC: EDBD 19:07 → ER 19:10 → OVERFLOW 19:11 → CENTRAL 09-30 03:20 → ICU WEST 10-04 02:11 → TELE-CENTR 10-06 02:12
PROVIDERS: ADMIT Hospitalist; ATTEND Internal Medicine
PROC: 5A09357 Assistance with Respiratory Ventilation, Less than 24 Consecutive Hours, Continuous Positive Airway Pressure (ICD-10-PCS; 2019-10-04)
PROC: 5A09357 Assistance with Respiratory Ventilation, Less than 24 Consecutive Hours, Continuous Positive Airway Pressure (ICD-10-PCS; 2019-10-05)
PROC: 5A1D70Z Performance of Urinary Filtration, Intermittent, Less than 6 Hours Per Day (ICD-10-PCS; 2019-10-09)
PROC: 5A1D70Z Performance of Urinary Filtration, Intermittent, Less than 6 Hours Per Day (ICD-10-PCS; principal; 2019-10-11)
DX: I13.2 Hypertensive heart and chronic kidney disease with heart failure and with stage 5 chronic kidney disease, or end stage renal disease (principal); N17.0 Acute kidney failure with tubular necrosis; J18.9 Pneumonia, unspecified organism; E11.10 Type 2 diabetes mellitus with ketoacidosis without coma; E11.21 Type 2 diabetes mellitus with diabetic nephropathy; G47.36 Sleep related hypoventilation in conditions classified elsewhere; N18.6 End stage renal disease; I50.21 Acute systolic (congestive) heart failure; E11.22 Type 2 diabetes mellitus with diabetic chronic kidney disease; E66.01 Morbid (severe) obesity due to excess calories; D63.1 Anemia in chronic kidney disease; E88.09 Other disorders of plasma-protein metabolism, not elsewhere classified; F31.9 Bipolar disorder, unspecified; E03.9 Hypothyroidism, unspecified; J20.9 Acute bronchitis, unspecified; J44.0 Chronic obstructive pulmonary disease with (acute) lower respiratory infection; E87.1 Hypo-osmolality and hyponatremia; E11.65 Type 2 diabetes mellitus with hyperglycemia; J44.1 Chronic obstructive pulmonary disease with (acute) exacerbation; I73.9 Peripheral vascular disease, unspecified; F41.9 Anxiety disorder, unspecified; Z68.43 Body mass index [BMI] 50.0-59.9, adult; Z89.512 Acquired absence of left leg below knee; Z83.3 Family history of diabetes mellitus; Z80.9 Family history of malignant neoplasm, unspecified; Z82.49 Family history of ischemic heart disease and other diseases of the circulatory system; Z79.899 Other long term (current) drug therapy
CPT/HCPCS: 36415; 36600; 71045; 71250; 76000; 76775; 76942; 80048; 80053; 81001; 82306; 82570; 82805; 82962; 83036; 83520; 83735; 83880; 83883; 83970; 84100; 84156; 84300; 84443; 85007; 85025; 85027; 85610; 86038; 86160; 86256; 86706; 87081; 87804; 90935; 94640; 94660; 94762; 96361; 96374; 97110; 97163; 97530; G0378; J0610; J0885; J1642; J1815; J1956; J2250; J2405; J3490

== ENCOUNTER 2019-10-17 19:28 | Inpatient (IN) | payer MEDICAID ==
[2019-10-16] MEDS: NOREPINEPHRINE 8 MG/250ML KIT 250 ML IV SCH (22:20)
[~2019-10-17] VITALS: Ht 175.3 cm; Wt 164.0 kg
[2019-10-17] MEDS ORDERED: ACETAMINOPHEN 500 MG TAB PO ONE (20:30)
[2019-10-17] MEDS ORDERED: PROPOFOL 100 ML IV ONE (21:28)
[2019-10-17] MEDS ORDERED: ETOMIDATE (2MG/ML) 20ML VIAL IV ONE (21:30)
[2019-10-17] MEDS ORDERED: SUCCINYLCHOLINE CHLORIDE 20 MG/ML 10ML VIAL IV ONE (21:30)
[2019-10-17 22:05] LABS: Hemoglobin 9.5 g/dL (13.5-17.5)
[2019-10-17 22:06] LABS: Hematocrit 30.1 % (41.0-53.0); Mean Corpuscular Hemoglobin 28.3 pg (28.0-32.0); Mean Corpuscular Hgb Conc. 31.7 g/dL (32.0-36.0); Mean Corpuscular Volume 89.3 fL (80.0-100.0); Platelet Count (auto) 115 10^3/uL (140-450); Red Blood Cells 3.37 10^6/uL (4.5-5.90); Red Cell Distribution Width 14.7 % (11.8-14.3)
[2019-10-17] MEDS: PROPOFOL 100 ML IV SCH (22:10)
[2019-10-17] MEDS ORDERED: MIDAZOLAM HCL 5 MG/ML-1ML VIAL ONE (22:11)
[2019-10-17 22:14] LABS: White Blood Cell 39.4 10^3/uL (4.4-10.8)
[2019-10-17] MEDS ORDERED: MIDAZOLAM DRIP 50 mg/50mL 50 ML IV ONE (22:14)
[2019-10-17] MEDS ORDERED: MIDAZOLAM HCL 5 MG/ML-1ML VIAL IV ONE (22:15)
[2019-10-17 22:17] LABS: Band Neutrophils % (manual) 0; Basophils % (manual) 0 (0.0-2.0); Blast Cells 0; Eosinophils % (manual) 0 (0-7); Metamyelocytes % 0; Myelocytes % 0; Promyelocytes % 0; Reactive Lymphocytes 0
[2019-10-17 22:24] LABS: Albumin 1.4 g/dL (3.4-5.0); Calcium 6.9 mg/dL (8.5-10.1); Potassium 3.1 mmol/L (3.5-5.1)
[2019-10-17 22:30] LABS: BUN/Creatinine Ratio 7.3; Bilirubin, Total 0.4 mg/dL (0.2-1.0); Total Protein 5.4 g/dL (6.4-8.2)
[2019-10-17 22:45] LABS: Lymphocytes % (manual) 2 (10.0-50.0); Monocytes % (manual) 1 (0-12)
[2019-10-17] MEDS ORDERED: VANCOMYCIN 1GM/250ML 250 ML IV ONE (23:00)
[2019-10-17] MEDS ORDERED: SODIUM CHLORIDE 0.9% 500 ML IV ONE (23:00)
[2019-10-17] MEDS ORDERED: PIPERACILLIN-TAZOB 3.375GM 100 ML IV ONE (23:00)
[2019-10-17] MEDS ORDERED: VANCOMYCIN PER PHARMACY 0 MG IV SCH (23:00)
[2019-10-17] MEDS: MIDAZOLAM DRIP 50 mg/50mL 50 ML IV SCH (23:09)
[2019-10-17] MEDS ORDERED: PROPOFOL 100 ML IV SCH (23:09)
[2019-10-17 23:13] VITALS: BP 97/50
[2019-10-17] MEDS ORDERED: ACETAMINOPHEN 650 MG RECT SUPP PR ONE (23:15)
[2019-10-17] MEDS ORDERED: ACETAMINOPHEN 650 mg PER 20 mL UD GT ONE (23:30)
[2019-10-18] VITALS (89 sets, daily range): BP systolic 90–155; BP diastolic 38–91
[2019-10-18] MEDS ORDERED: SODIUM CHLORIDE 0.9% 1,000 ML IV SCH (00:01)
[2019-10-18] MEDS ORDERED: DEXTROSE (50%) 50ML SYRG IV PRN (00:15)
[2019-10-18] MEDS ORDERED: VANCOMYCIN PER PHARMACY 0 MG IV SCH (00:15)
[2019-10-18] MEDS ORDERED: POTASSIUM CHL 20MEQ/100ML 100 ML IV ONE ×2 (00:15→20:00)
[2019-10-18] MEDS ORDERED: ONDANSETRON HCL 4 MG/2 ML VIAL IV PRN (00:15)
[2019-10-18] MEDS ORDERED: CALCIUM GLUC 4.65meq/50ml D5AE 50 ML IV ONE (00:15)
[2019-10-18] MEDS ORDERED: MORPHINE SULF INJ 2 MG/ML SYRINGE 1ML IV PRN (00:30)
[2019-10-18] MEDS ORDERED: NITROGLYCERIN 0.4 MG SL TAB SL PRN (00:30)
--- NOTE | 2019-10-18 01:03 | NUR ---
RECEIVED REPORT FROM ED ON PATIENT
--- NOTE | 2019-10-18 02:10 | NUR ---
RT Transport Note: Patient transported to {105} with RN {SANDRA}. Patient transported to and from procedure on ventilator with previous ordered settings. Patient on monitoring tech with alarms set and audible, ambu-bag/mask connected to 02 tank. Patient returned to room with no adverse reaction noted. Transport completed without incident.
--- NOTE | 2019-10-18 02:18 | NUR ---
Admit to ICU from ER on vent AVIVABERNARD admitted to ICU via gurney on teletypesetter monitor, intubated and being bagged by Respiratory Therapist. Patient transfered to bed, connected to mechanical ventilator by therapist, TONNYM at bedside. Patient connected to ICU monitoring, weighed by bedscale, oriented to Tre Veloz, BRENDON primary RN, unit, ventilator and sedation. PLACED ON ISOLATION FOR SUSPECTED COVID-19 IN A NEGATIVE PRESSURE ISOLATION ROOM.
--- NOTE | 2019-10-18 02:30 | NUR ---
COOLING MEASURES BEGAN PATIENT RECTAL TEMP 104 PLACED ON COOLING BLANKET AND ICEPACKS. ROOM COOLED.
--- NOTE | 2019-10-18 03:00 | NUR ---
INITIAL ASSESSMENT PATIENT INTUBATED AND SEDATED ON PROP 15 AND VERSED 10. TOLERATING VENTILATOR. VENT SETTING 8.0, 24 @ LIP AC 16 VT 550 60%FIO2 PEEP 8 STATING 94% SPO2 ON BEDSIDE MONITOR. ST 105 W/ BBB, PVC'S. BP 118/91 ON 15 OF LEVO. BRANTLEY PATENT TO GRAVITY. OGT TO LIS. LEFT UPPER CHEST DIALYSIS CATH CDI. RIGHT IJ TLC CDI. TWO RIGHT 20 G IV CDI. LEFT BKA WITH SCAB ON BOTTOM OF STUMP. RIGHT GREAT TOE WITH SCAB. PICTURES TAKEN. FOR GTTS AND THEIR TITRATIONS SEE IV SPREAD SHEET. FOR MORE INFORMATION SEE INTERVENTIONS. PATIENT PLACED IN POSITION OF COMFORT. AIRBORNE ISOLATION IN AFFECT FOR POSSIBLE COVID-19 PER HOSPITAL POLICY. ALL FALL AND SAFETY PRECAUTIONS IN PLACE.
[2019-10-18] MEDS: fentaNYL Drip 2500mCg/250mlNS 250 ML IV SCH (05:01)
[2019-10-18] MEDS: ACCU-CHEK COMFORT CURVE STRIP VI SCH ×3 (06:00→18:20)
[2019-10-18] MEDS: NOREPINEPHRINE 8 MG/250ML KIT 250 ML IV SCH ×2 (06:12→16:12)
[2019-10-18] MEDS: InsuLIN REG 1unit/0.01ml Soln (100units/ml) SC SCH ×3 (06:20→18:24)
[2019-10-18 06:24] LABS: Red Cell Distribution Width 14.9 % (11.8-14.3)
[2019-10-18 06:26] LABS: Hematocrit 28.4 % (41.0-53.0); Hemoglobin 9.3 g/dL (13.5-17.5); Mean Corpuscular Hemoglobin 29.1 pg (28.0-32.0); Mean Corpuscular Hgb Conc. 32.5 g/dL (32.0-36.0); Mean Corpuscular Volume 89.4 fL (80.0-100.0); Platelet Count (auto) 111 10^3/uL (140-450); Red Blood Cells 3.18 10^6/uL (4.5-5.90); White Blood Cell 29.6 10^3/uL (4.4-10.8)
[2019-10-18 06:33] LABS: Basophils % (manual) 0 (0.0-2.0); Blast Cells 0; Eosinophils % (manual) 0 (0-7); Metamyelocytes % 0; Myelocytes % 0; Promyelocytes % 0; Reactive Lymphocytes 0
[2019-10-18 06:35] LABS: Albumin 1.3 g/dL (3.4-5.0); Calcium 6.5 mg/dL (8.5-10.1)
[2019-10-18 06:38] LABS: Bilirubin, Total 0.5 mg/dL (0.2-1.0); Total Protein 4.7 g/dL (6.4-8.2)
[2019-10-18 06:40] LABS: Urine Amorphous Crystal FEW /hpf (None Seen); Urine Bacteria FEW /hpf (None Seen); Urine Blood 2+ /uL (Negative); Urine Specific Gravity 1.025 (1.001-1.035); Urine WBC 261 /hpf (0 - 3); Urine WBC Clumps PRESENT /hpf (None Seen)
[2019-10-18 06:41] LABS: Potassium 2.8 mmol/L (3.5-5.1)
--- NOTE | 2019-10-18 06:42 | NUR ---
CRITICAL LAB VALUE PAGED HOSPITALIST AWAITING CALL BACK.
[2019-10-18] MEDS: IPRATROPIUM BROM 0.5 MG/2.5ML INH SOL NEB SCH ×3 (07:06→18:46)
[2019-10-18] MEDS: ALBUTEROL SULF 2.5 MG/0.5ML(0.5%) NEB SOLN NEB SCH ×3 (07:06→18:47)
--- NOTE | 2019-10-18 07:06 | NUR ---
HOSPITALIST RETURNED CALL UPDATED ON K 2.8. NEW ORDERS RECEIVED
--- NOTE | 2019-10-18 07:10 | NUR ---
REPORT RECEIVED FROM MAJOR SALES ASSOCIATE NURSE. PATIENT RESTING IN BED INTUBATED AND SEDATED. RESPIRATIONS EVEN AND UNLABORED. NO SIGNS OF ACUTE DISTRESS NOTED. BED IN LOW POSITION. WILL CONTINUE TO MONITOR.
[2019-10-18 07:16] LABS: Band Neutrophils % (manual) 1; Lymphocytes % (manual) 2 (10.0-50.0); Monocytes % (manual) 6 (0-12)
[2019-10-18] MEDS ORDERED: ENOXAPARIN SOD 150 MG/1 ML SYRINGE SC ONE (07:30)
[2019-10-18] MEDS: PROPOFOL 100 ML IV SCH (09:10)
[2019-10-18] MEDS: POTASSIUM CHL 20MEQ/100ML 100 ML IV SCH ×2 (09:11→10:30)
[2019-10-18] MEDS: ACETAMINOPHEN 325 MG TAB PO PRN ×2 (09:23→23:25)
[2019-10-18] MEDS: ASPirin 81 mg TAB PO SCH (10:02)
[2019-10-18] MEDS: PANTOPRAZOLE 40 MG/10 ML VIAL INJ IV SCH (10:02)
[2019-10-18] MEDS: MIDAZOLAM DRIP 50 mg/50mL 50 ML IV SCH ×2 (10:16→16:11)
--- NOTE | 2019-10-18 10:32 | NUR ---
DR BROCK AT BEDSIDE TO ASSESS PATIENT AND DISCUSS PLAN OF CARE. ALL ORDERS NOTED IN CHART. PER MD ADMINISTER 4MG IVP BUMEX TIMES 1 DOSE.
--- NOTE | 2019-10-18 10:42 | NUR ---
WOUND CARE NOTE: Wound care in to see patient due to low Amarjit score of 13, intubation status and wounds/skin issue that are noted by bedside nurse upon assessment. Bedside nurse took photograph of patient's wound/skin issue upon admission for reference. Patient is 49 years old male with admitting diagnosis of Acute Respiratory Failure, Sepsis. Patient is resting in ICU bed in Rm. 105. Patient is intubated, and mechanically ventilated. Unable to do full skin assessment due to patient is on airborne precautions, R/O CoVid limiting exposure. BRENDON Thayer reported who just got out of patient's room that patient has no pressure injury. She added that the wounds noted are the open abrasion/blister to L BKA stump which is cleansed and covered with Opti foam gentle dressing and open to air, dry, scab to distal R great toe. Patient recently at [facility] and seen by wound care for abrasion and serum filled blister to L BKA stump which reported from patient's prostheses. Patient is receiving BID/PRN cleaning and application of Barrier cream to sacral buttocks as preventative. RECOMMENDATION: Nursing to continue with BID/PRN cleaning and application of Barrier cream to sacral buttocks as preventative, EOD/PRN dressing change to L BKA stump wound, per MD order, frequent turning and repositioning schedule as condition permits, redistribute pressure points with pillows,elevate affected extremity on pillow, continue monitoring by wound care while patient is mechanically ventilated. Addendum: 10/18/19 at 1208 by Radha Brown RN Amended: Links added.
[2019-10-18] MEDS ORDERED: BUMETANIDE 2.5mg/10ml (0.25 mg/ml) INJ IV ONE (12:00)
--- NOTE | 2019-10-18 12:55 | NUR ---
DR Gerald MENJIVAR AT [facility] TO DISCUSS PLAN OF CARE.
--- NOTE | 2019-10-18 13:25 | NUR ---
DR CAIN AT BEDSIDE TO ASSESS PATIENT AND DISCUSS PLAN OF CARE.
[2019-10-18] MEDS ORDERED: HEPARIN DRIP/D5W 100UNITS/ML 250 ML IV SCH (17:15)
--- NOTE | 2019-10-18 17:57 | NUR ---
ELECTRICAL TROUBLESHOOTER AT BEDSIDE.
[2019-10-18 18:30] LABS: Basophils # (auto) 0 10 ^3/uL (0-0.2); Basophils % (auto) 0.2 % (0.0-2.0); Eosinophils # (auto) 0 10 ^3/uL (0-0.8); Hematocrit 29.4 % (41.0-53.0); Hemoglobin 9.4 g/dL (13.5-17.5); Lymphocytes # (auto) 0.8 10 ^3/uL (0.4-5.4); Lymphocytes % (auto) 2.9 % (10.0-50.0); Mean Corpuscular Hemoglobin 28.6 pg (28.0-32.0); Mean Corpuscular Hgb Conc. 32.1 g/dL (32.0-36.0); Mean Corpuscular Volume 89.1 fL (80.0-100.0); Monocytes # (auto) 1.3 10 ^3/uL (0-1.3); Monocytes % (auto) 4.9 % (0.0-12.0); Neutrophils # (auto) 24.3 10 ^3/uL (1.6-8.6); Platelet Count (auto) 104 10^3/uL (140-450); White Blood Cell 26.4 10^3/uL (4.4-10.8)
[2019-10-18 18:46] LABS: INR 1.16 (0.9-1.15); Partial Thromboplastin Time 49.9 sec (23.64-32.05)
[2019-10-18 18:48] LABS: Albumin 1.2 g/dL (3.4-5.0); Calcium 6.6 mg/dL (8.5-10.1); Magnesium 1.8 mg/dL (1.6-2.6); Potassium 3.4 mmol/L (3.5-5.1)
[2019-10-18 18:52] LABS: BUN/Creatinine Ratio 6.7; Bilirubin, Direct 0.5 mg/dL (0-0.2); Bilirubin, Total 0.7 mg/dL (0.2-1.0); Total Protein 4.8 g/dL (6.4-8.2)
[2019-10-18 18:59] LABS: Free T4 (Free Thyroxine) 0.6 ng/dL (0.89-1.76); T3 Total 0.28 ng/mL (0.60-1.81)
[2019-10-18] MEDS ORDERED: HEPARIN SODIUM (PORCINE) 5000 UNITS/ML 1ML VIAL ONE (19:17)
--- NOTE | 2019-10-18 19:26 | NUR ---
PAGED DR BROCK FOR POTASSIUM LEVEL OF 3.4 AWAITING CALL BACK.
--- NOTE | 2019-10-18 19:30 | NUR ---
report received and assumed care; see interventions for assessment; see iv spreadsheet for gtts; vs stable at this time; will cont. to monitor.
--- NOTE | 2019-10-18 19:37 | NUR ---
SPOKE TO DR TOVAR ABOUT PATIENTS POTASSIUM 3.4, PER MD REPLACE WITH POTASSIUM IVPB 2OMEQ X1 DOSE. ALL ORDERS NOTED IN CHART.
[2019-10-18] MEDS: MEROPENEM 1GM IVPB 100 ML IV SCH (20:00)
--- NOTE | 2019-10-18 20:02 | NUR ---
SPOKE TO PHARMACIST WHO SPOKE WITH DR Gerald MENJIVAR ABOUT HEPARIN DRIP. MD AWARE THAT PATIENT RECEIVED 1,000UNIT BOLUS PER PROTOCOL OF HEPARIN AND DRIP WAS STARTED. PER MD AND PHARMACIST STOP HEPARIN DRIP TONIGHT AND START TOMORROW. PATIENT IS A RENAL PATIENT ON DIALYSIS AND RECEIVED LOVENOX THIS MORNING. MONITOR PATIENT FOR BLEEDING.
[2019-10-18] MEDS: MUPIROCIN 2% OINT 15gm or 22gm EACHNOSTRI SCH (22:00)
[2019-10-18] MEDS: GABAPENTIN 300 MG CAP PO SCH (22:00)
[2019-10-18] MEDS: ATORVASTATIN 20 MG TAB PO SCH (22:00)
[2019-10-19] VITALS (100 sets, daily range): BP systolic 81–157; BP diastolic 24–78
[2019-10-19] MEDS: fentaNYL Drip 2500mCg/250mlNS 250 ML IV SCH (00:01)
[2019-10-19] MEDS: IPRATROPIUM BROM 0.5 MG/2.5ML INH SOL NEB SCH ×4 (01:49→18:59)
[2019-10-19] MEDS: ALBUTEROL SULF 2.5 MG/0.5ML(0.5%) NEB SOLN NEB SCH ×4 (01:49→18:58)
[2019-10-19 01:59] LABS: Basophils # (auto) 0 10 ^3/uL (0-0.2); Basophils % (auto) 0.2 % (0.0-2.0); Eosinophils # (auto) 0 10 ^3/uL (0-0.8); Eosinophils % (auto) 0.1 % (0.0-7.0); Hematocrit 26.6 % (41.0-53.0); Hemoglobin 8.6 g/dL (13.5-17.5); Lymphocytes # (auto) 0.5 10 ^3/uL (0.4-5.4); Mean Corpuscular Hemoglobin 28.5 pg (28.0-32.0); Mean Corpuscular Hgb Conc. 32.3 g/dL (32.0-36.0); Mean Corpuscular Volume 88.2 fL (80.0-100.0); Monocytes # (auto) 1.1 10 ^3/uL (0-1.3); Monocytes % (auto) 4.7 % (0.0-12.0); Neutrophils # (auto) 20.8 10 ^3/uL (1.6-8.6); Platelet Count (auto) 91 10^3/uL (140-450); Red Blood Cells 3.02 10^6/uL (4.5-5.90); Red Cell Distribution Width 15.1 % (11.8-14.3); White Blood Cell 22.4 10^3/uL (4.4-10.8)
[2019-10-19 02:16] LABS: INR 1.13 (0.9-1.15); Partial Thromboplastin Time 54.4 sec (23.64-32.05)
[2019-10-19 02:50] LABS: Albumin 1.1 g/dL (3.4-5.0); Calcium 6.5 mg/dL (8.5-10.1); Magnesium 1.6 mg/dL (1.6-2.6); Potassium 3.6 mmol/L (3.5-5.1)
[2019-10-19 02:54] LABS: Bilirubin, Total 0.6 mg/dL (0.2-1.0); Total Protein 4.5 g/dL (6.4-8.2)
[2019-10-19 03:06] LABS: Bilirubin, Direct 0.4 mg/dL (0-0.2)
[2019-10-19] MEDS: ACCU-CHEK COMFORT CURVE STRIP VI SCH ×4 (06:00→17:34)
[2019-10-19] MEDS: GABAPENTIN 300 MG CAP PO SCH (06:00)
[2019-10-19] MEDS ORDERED: PIPERACILLIN-TAZOB 2.25GM 50 ML IV SCH (06:00)
[2019-10-19] MEDS: LEVOTHYROXINE SODIUM 25 MCG TAB PO SCH (06:52)
[2019-10-19] MEDS: InsuLIN REG 1unit/0.01ml Soln (100units/ml) SC SCH ×5 (06:52→23:59)
[2019-10-19] MEDS: MEROPENEM 1GM IVPB 100 ML IV SCH ×2 (08:07→19:41)
--- NOTE | 2019-10-19 09:00 | NUR ---
TURNED OFF COOLING BLANKET AT THIS TIME. PATIENT TEMP 98.8F RECTALLY. WILL CONTINUE TO MONITOR.
[2019-10-19] MEDS: HEPARIN DRIP/D5W 100UNITS/ML 250 ML IV SCH ×2 (10:00→23:58)
[2019-10-19] MEDS: DULOXETINE 20 MG CAP PO SCH (10:00)
[2019-10-19] MEDS: MIDAZOLAM DRIP 50 mg/50mL 50 ML IV SCH ×3 (10:04→22:54)
[2019-10-19] MEDS: PROPOFOL 100 ML IV SCH ×5 (10:04→22:55)
[2019-10-19] MEDS: MUPIROCIN 2% OINT 15gm or 22gm EACHNOSTRI SCH ×2 (10:30→21:27)
--- NOTE | 2019-10-19 10:30 | NUR ---
I called to speak with nurse Thayer regarding the plan of care for this patient-she is in with a patient and will give me a call back.
[2019-10-19] MEDS: PANTOPRAZOLE 40 MG/10 ML VIAL INJ IV SCH (10:47)
[2019-10-19] MEDS: ASPirin 81 mg TAB PO SCH (10:48)
--- NOTE | 2019-10-19 11:10 | NUR ---
DR TOVAR AT BEDSIDE TO ASSESS PATIENT AND DISCUSS PLAN OF CARE. PER MD PATIENT TO HAVE DIALYSIS TODAY. ALL ORDERS NOTED IN CHART.
[2019-10-19] MEDS ORDERED: ALBUMIN 25% 100 ML IV PRN (11:15)
[2019-10-19] MEDS ORDERED: SODIUM CHL 0.9% 1000 ML BAG XX ONE (11:15)
--- NOTE | 2019-10-19 11:30 | NUR ---
SPOKE TO ROSENDO FROM CASE MANAGEMENT ABOUT PATIENT STATUS AND REASON FOR TRANSFER. ROSENDO WILL BE WORKING ON TRANSFER.
--- NOTE | 2019-10-19 11:38 | NUR ---
SS consult regarding transfer order written at 1704 on . Clod Puller on-call not notified by page or phone call on 10/08/2019. Order received this morning and transfer arrangements are being facilitated as expeditiously as possible pending outside [facility] contracted facilities bed availability.
--- NOTE | 2019-10-19 11:39 | NUR ---
DR QUIROZ AT BEDSIDE TO ASSESS PATIENT AND DISCUSS PLAN OF CARE. PER MD START PATIENT ON HEPARIN DRIP PER PROTOCOL WITH NO BOLUS.
--- NOTE | 2019-10-19 11:40 | NUR ---
I spoke with nurse Flaca regarding the order to transfer to higher level of care. Per Flaca, abdominal girth is 29 inches. Weight is 164kg. I called Radiology and spoke with Catie to see if they can accommodate this patient on our CT scan table here-she will look into it and give me a call back.
--- NOTE | 2019-10-19 11:46 | NUR ---
DATA ENTRY TECHNICIAN AT BEDSIDE ARMAND LOCAL OWNER OPERATOR TRUCK DRIVER AT BEDSIDE TO REEVALUATE PATIENT TO SEE IF POSSIBLE TO TAKE PATIENT FOR CTA. PER MEASUREMENTS OF PATIENT WHICH WERE 27-28 INCHES IN WIDTH OF CHEST. HE WILL NOT FIT IN THE CT MACHINE AT THIS FACILITY, THE CT MACHINE GANTRY MAXIMUM WIDTH IS 26 INCHES.
--- NOTE | 2019-10-19 11:52 | NUR ---
I faxed transfer request/clinical information to [facility].
--- NOTE | 2019-10-19 12:21 | NUR ---
NUTRITION ASSESSMENT NOTES Please refer to link notes of nutrition screen form filed under the intervention section of the plan of care for further details. Est. Energy Needs: 0356-3292 kcal (12-15 kcal/kg BW). Est. Protein Needs: 114-133 gms/day (1.2-1.4 gms/kg Adj.BW). Will continue to monitor pertinent labs and reassess nutrient need prn Addendum: 10/19/19 at [address] Amended: Links added.
--- NOTE | 2019-10-19 12:46 | NUR ---
SPOKE TO NUNO AIRCRAFT LOADMASTER SUPERINTENDENT FROM [facility]. UPDATED ON PATIENT STATUS.
--- NOTE | 2019-10-19 13:15 | NUR ---
SISTER AMANDA UPDATED ON PATIENT STATUS AND PLAN OF CARE FOR TRANSFER. ALL QUESTIONS AND CONCERNS ADDRESSED.
--- NOTE | 2019-10-19 13:23 | NUR ---
DR MENJIVAR ON UNIT AND UPDATED ON PATIENT STATUS AND TRANSFER STATUS. ALL ORDERS NOTED IN CHART.
--- NOTE | 2019-10-19 13:43 | NUR ---
I called [facility] [phone] and spoke with Jennifer, she said they are at capacity and can not accept transfer at this time.
--- NOTE | 2019-10-19 13:50 | NUR ---
DIALYSIS NURSE AT BEDSIDE.
--- NOTE | 2019-10-19 14:26 | NUR ---
Faxed transfer request to [facility].
--- NOTE | 2019-10-19 14:55 | NUR ---
I received a message from Catie in Radiology letting me know that our CT scan machine can not accommodate this patient. I spoke with Prachi at [facility] ([phone]), she said we can reach out to [facility], [facility], [facility], [facility] and [facility]. I let her know that I have reached out to [facility], and that [facility] can not accept. Authorization number for [facility] is [id number], and auth number for facility is [id number].
--- NOTE | 2019-10-19 15:04 | NUR ---
I called the [facility] [phone] ([facility]) and spoke with Ladi, she said they can only accommodate abd girth up to 27 inches, they can not accommodate this patient (their CT scan does hold up to 450 pounds).
--- NOTE | 2019-10-19 15:08 | NUR ---
I called [facility] [phone] and left message for housecleaner asking if they can accommodate this patient and if they have beds available.
--- NOTE | 2019-10-19 15:12 | NUR ---
I called [facility] [phone] and left message for admissions asking if they can accommodate this patient and asking about bed availability.
--- NOTE | 2019-10-19 15:29 | NUR ---
I received a call from Graciela at [facility] letting me know that they can accommodate this patient's size but they are at capacity for their ICU beds and can not accept him at this time.
--- NOTE | 2019-10-19 16:30 | NUR ---
TURNED COOLING BLANKETS BACK ON DUE TO TEMP INCREASING TO 99.1F RECTALLY. WILL CONTINUE TO MONITOR.
[2019-10-19] MEDS ORDERED: VANCOMYCIN 1GM/250ML 250 ML IV ONE (17:00)
--- NOTE | 2019-10-19 17:17 | NUR ---
I called [facility] ([phone]) and spoke with Colette-placed patient on will-call pending transfer to higher level of care (per Colette patient will remain on will call until Tuesday).
--- NOTE | 2019-10-19 17:38 | NUR ---
PAGED PAGED DR Gerald MENJIVAR TO INFORM OF PATIENTS DIALYSIS CATHETER NOTED TO HAVE PUS COMING FROM SITE [facility] DIALYSIS CATHETER WITH NOTED VISUAL OF CATHETER AT WOUND SITE. WOUND CULTURE SENT AND PHOTO TAKEN. AWAITING CALL BACK FROM .
[2019-10-19] MEDS ORDERED: DIGOXIN (250MCG/ML) 2 ML AMPULE IV ONE (18:00)
--- NOTE | 2019-10-19 18:27 | NUR ---
MD CALLED DR Gerald MENJIVAR CALLED BACK AND INFORMED OF STATUS OF PATIENTS DIALYSIS CATHETER. MD INFORMED THAT WOUND CULTURE WAS SENT STAT. PER MD ADD THIS INFORMATION TO NEED FOR TRANSFER TO HIGHER LEVEL OF CARE. PER MD PLACE STAT CONSULT TO DR CARLISLE FOR DIALYSIS CATHETER REMOVAL AND REPLACEMENT. ALL ORDERS NOTED IN CHART.
[2019-10-19 18:47] LABS: INR 1.07 (0.9-1.15)
--- NOTE | 2019-10-19 18:48 | NUR ---
PAGED MACHINE STUFFER TO INFORM ADDITION TO REASON FOR TRANSFER TO HIGHER LEVEL OF CARE TO INCLUDE INFECTED DIALYSIS SITE. AWAITING CALL BACK.
--- NOTE | 2019-10-19 18:50 | NUR ---
SPOKE TO DUGLAS FROM EQUIPMENT SERVICE TECHNICIAN AND UPDATED ON PATIENTS NEED TO TRANSFER SHOULD ALSO INCLUDE DIALYSIS CATHETER INFECTED AND NEEDS REPLACED. PER DUGLAS PLACE A NOTE IN CHART AND NURSING IS TO INFORM TRANSFER CENTER WHEN THEY CALL FOR PATIENT INFORMATION.
[2019-10-19 19:17] LABS: Partial Thromboplastin Time 74.1 sec (23.64-32.05)
--- NOTE | 2019-10-19 19:17 | NUR ---
REPORT GIVEN TO [facility] HOSE STRIPPER NURSE. INFORMED OF PTT RESULT 74.1 AND TO ADJUST HEPARIN DRIP PER PROTOCOL.
--- NOTE | 2019-10-19 19:36 | NUR ---
TRANSFER PAPERWORK FAXED TO DR Yonis MENJIVAR PER REQUEST.
[2019-10-19] MEDS: ACETAMINOPHEN 325 MG TAB PO PRN (19:41)
--- NOTE | 2019-10-19 19:45 | NUR ---
TEMP 100.8F - COOLING MEASURES APPLIED, FAN PLACED IN ROOM, COOL WASH RAG, TYLENOL PRN GIVEN
[2019-10-19] MEDS ORDERED: EPOETIN ALFA 10,000 UNIT/1 ML VIAL SC ONE (21:00)
--- NOTE | 2019-10-19 21:00 | NUR ---
UNABLE TO COMPLETE SEDATION VACATION AT THIS TIME: PATIENT IS SENSITIVE TO SEDATIVES AND BECOMES ASYNCHRONOUS WITH VENTILATOR PER DAY SHIFT. Addendum: 10/20/19 at 0031 by Magalie Vazquez RN RN Amended: Links added.
--- NOTE | 2019-10-19 21:00 | NUR ---
PAGED SURGICAL CONSULT FOR DR CARLISLE FOR TUNNELED CATHETER REMOVAL AND REPLACEMENT.
--- NOTE | 2019-10-19 21:07 | NUR ---
SPOKE TO DR CARLISLE ON PATIENT STATUS AND REASON FOR CONSULT. PER MD WILL BE IN TO SEE PATIENT TOMORROW.
--- NOTE | 2019-10-19 21:16 | NUR ---
ASKED PHARMACY FOR EPOGEN
[2019-10-19] MEDS: ATORVASTATIN 20 MG TAB PO SCH (21:27)
[2019-10-19] MEDS: NOREPINEPHRINE 8 MG/250ML KIT 250 ML IV SCH (21:30)
--- NOTE | 2019-10-19 22:00 | NUR ---
SPOKE WITH PATIENT'S SISTER: AFTER PASSWORD VERIFIED, UPDATED ON PATIENT'S STATUS. ANSWERED ALL QUESTIONS ABLE. HELD PORTABLE PHONE TO PATIENT'S EAR SO SHE COULD SPEAK TO HIM. ENCOURAGED TO VERBALIZE QUESTIONS AND CONCERNS
--- NOTE | 2019-10-19 22:00 | NUR ---
TEMP DOWN TO 100.2F
[2019-10-20] VITALS (106 sets, daily range): BP systolic 76–139; BP diastolic 31–71
[2019-10-20] MEDS: fentaNYL Drip 2500mCg/250mlNS 250 ML IV SCH (00:01)
--- NOTE | 2019-10-20 00:02 | NUR ---
INQUIRED WITH LAB ABOUT PTT RESULTS
[2019-10-20] MEDS: IPRATROPIUM BROM 0.5 MG/2.5ML INH SOL NEB SCH ×5 (00:36→18:07)
[2019-10-20] MEDS: ALBUTEROL SULF 2.5 MG/0.5ML(0.5%) NEB SOLN NEB SCH ×5 (00:36→18:07)
--- NOTE | 2019-10-20 00:42 | NUR ---
PER LAB, LAB MACHINE NOT ABLE TO READ RESULTS, STATES THE VALUE MUST > 200 - HEPARIN GTT STOPPED
[2019-10-20] MEDS: PROPOFOL 100 ML IV SCH ×11 (01:00→22:09)
--- NOTE | 2019-10-20 01:54 | NUR ---
HEPARIN GTT RESTARTED AT 1650 UNITS/HR PER PROTOCOL
[2019-10-20] MEDS: MIDAZOLAM DRIP 50 mg/50mL 50 ML IV SCH ×5 (02:43→23:08)
--- NOTE | 2019-10-20 03:20 | NUR ---
LARGE PASTY LIGHT BROWN/HONEY COLORED STOOL - RECTAL TEMPERATURE PROBE REMOVED
--- NOTE | 2019-10-20 03:27 | NUR ---
BED BATH WITH NO RINSE SPRAY, NICOLLE CARE, BRANTLEY CARE, ORAL CARE, AND PARTIAL LINEN CHANGE COMPLETED
--- NOTE | 2019-10-20 03:28 | NUR ---
WOUND CARE: SUPERIOR TO TUNNELED CATH INSERTION SITE: SMALL OPENING NOTED, ABLE TO VISUALIZE TUNNELED CATH, SURROUNDING SKIN ERYTHEMATOUS AND FIRM, ABLE TO EXPRESS SMALL AMOUNT OF BLOODY PURULENCE. CLEANSED AREA WITH CHLORHEXIDINE SWAB. LET AIR DRY. COVERED WITH GENTLE OPTIFOAM. LEFT BKA SKIN TEAR: REMOVED PREVIOUS DRESSING. NO DRAINAGE. SKIN TEAR SCABBING OVER. CLEANSED WITH CHLORHEXIDINE SWAB. LET AIR DRY. COVERED WITH GENTLE OPTIFOAM
--- NOTE | 2019-10-20 03:43 | NUR ---
SPOKE WITH DR. CARLISLE: ORDERS TO KEEP PATIENT NPO. ADVISED DR. CARLISLE THAT PATIENT IS ON A HEPARIN GTT. PER DR. CARLISLE, HE WILL COME TO SEE THE PATIENT TODAY
[2019-10-20] MEDS: NOREPINEPHRINE 8 MG/250ML KIT 250 ML IV SCH ×2 (04:26→15:48)
--- NOTE | 2019-10-20 06:15 | NUR ---
SBP AT 0615 LOW D/T TEMPORARY HOLD OF LEVO GTT FOR BLOOD DRAW
[2019-10-20 06:27] LABS: Basophils # (auto) 0.1 10 ^3/uL (0-0.2); Basophils % (auto) 0.6 % (0.0-2.0); Eosinophils # (auto) 0.2 10 ^3/uL (0-0.8); Eosinophils % (auto) 1.6 % (0.0-7.0); Hematocrit 26.1 % (41.0-53.0); Hemoglobin 8.9 g/dL (13.5-17.5); Lymphocytes # (auto) 0.5 10 ^3/uL (0.4-5.4); Lymphocytes % (auto) 4.3 % (10.0-50.0); Mean Corpuscular Hemoglobin 29.9 pg (28.0-32.0); Mean Corpuscular Hgb Conc. 34.2 g/dL (32.0-36.0); Mean Corpuscular Volume 87.5 fL (80.0-100.0); Monocytes # (auto) 0.7 10 ^3/uL (0-1.3); Monocytes % (auto) 5.5 % (0.0-12.0); Neutrophils # (auto) 11.2 10 ^3/uL (1.6-8.6); Platelet Count (auto) 80 10^3/uL (140-450); Red Blood Cells 2.99 10^6/uL (4.5-5.90); Red Cell Distribution Width 14.9 % (11.8-14.3); White Blood Cell 12.7 10^3/uL (4.4-10.8)
[2019-10-20] MEDS: LEVOTHYROXINE SODIUM 25 MCG TAB PO SCH (06:28)
[2019-10-20] MEDS: ACCU-CHEK COMFORT CURVE STRIP VI SCH ×5 (06:30→23:54)
[2019-10-20] MEDS: InsuLIN REG 1unit/0.01ml Soln (100units/ml) SC SCH ×4 (06:30→23:53)
[2019-10-20 06:58] LABS: BUN/Creatinine Ratio 7.2; Calcium 6.4 mg/dL (8.5-10.1); Potassium 3.3 mmol/L (3.5-5.1)
--- NOTE | 2019-10-20 07:00 | NUR ---
PTT 69 - PER PROTOCOL, NO CHANGE
[2019-10-20 07:09] LABS: INR 1.04 (0.9-1.15)
--- NOTE | 2019-10-20 07:30 | NUR ---
ASSESS- PT. LYING IN BED ON VENT SIZE #8.0 ET, 24 AT THE LIP, AC-16, TV-550, PEEP-5, FIO2-45%. LUNGS WITH WHEEZES JOSE. INSPIRATORY AND EXPIRATORY, DIMINISHED BASES JOSE. PT. HAS GAG/COUGH REFLEX. PUPILS 3 AND SLUGGISH JOSE. ON PROPOFOL GTT. AT 50 MCG. AND VERSED GTT. AT 15 MG./HR. RESPONDS TO PAINFUL/TACTILE STIMULI. NO MOVEMENT OF UPPER OR LOWER EXTREMITIES SEEN, PT. HAS LT. BKA. OGT IN PLACE, CLAMPED. ABD. SOFT, LG. BOWEL SOUNDS ALL FOUR QUADRANTS. PT. IS NPO. F/C TO GRAVITY WITH CLEAR YELLOW URINE. RADIAL PULSES STRONG, PALPABLE JOSE. RT. DORSALIS PEDAL PULSE STRONG, PALPABLE WITH 3 PLUS EDEMA RT. FT. 1 PLUS NON-PITTING EDEMA UPPER EXTREMITIES JOSE. TLC RT. IJ INTACT. TUNNELED HEMODIALYSIS CATHETER LT. SUBCLAVIAN INTACT WITH DSG. D/I, SM. OPENING ABOVE CATHETER SITE DRAINING SM. AMOUNT PURULENT DRAINAGE. LT. BKA WITH SKIN TEAR WITH OPTIFOAM DSG. D/I. RT. GREAT TOE WITH SCAB OPEN TO AIR. HEPARIN GTT. AT 1650 UNITS/HR. VIA 20 GAUGE IV RFA. NO SIGNS OF BLEEDING. LEVOPHED GTT. AT 11 MCG.
--- NOTE | 2019-10-20 07:30 | NUR ---
REPORT AND CARE ENDORSED TO BRENDON FLORES
[2019-10-20] MEDS: MEROPENEM 1GM IVPB 100 ML IV SCH ×2 (08:28→20:00)
--- NOTE | 2019-10-20 09:05 | NUR ---
DR. CARLISLE Provider/Hospitalist at bedside. GAVE UPDATE ON PT. SAID HE WOULD LIKE DR. Gerald MENJIVAR TO CALL HIM WHEN HE COMES IN TODAY.
[2019-10-20] MEDS: PANTOPRAZOLE 40 MG/10 ML VIAL INJ IV SCH (09:54)
[2019-10-20] MEDS: ASPirin 81 mg TAB PO SCH (09:55)
[2019-10-20] MEDS: GABAPENTIN 300 MG CAP PO SCH (09:55)
[2019-10-20] MEDS: DULOXETINE 20 MG CAP PO SCH (09:56)
[2019-10-20] MEDS: MUPIROCIN 2% OINT 15gm or 22gm EACHNOSTRI SCH ×2 (09:56→21:19)
--- NOTE | 2019-10-20 10:53 | NUR ---
DR. TOVAR Provider/Hospitalist at bedside. GAVE UPDATE ON PT. NEW ORDERS RECEIVED.
[2019-10-20] MEDS ORDERED: POTASSIUM EFFERVESENT TAB 25 MEQ JT ONE (11:00)
--- NOTE | 2019-10-20 11:00 | NUR ---
PT.'S SISTER CALLED, HAD PASSWORD. GAVE UPDATE ON PT.
[2019-10-20] MEDS: HEPARIN DRIP/D5W 100UNITS/ML 250 ML IV SCH ×2 (11:08→15:47)
--- NOTE | 2019-10-20 12:30 | NUR ---
DESATURATION PATIENTS PULSE OX READING DECREASED TO HIGH 80S. PATIENT SUCTIONED AND CREAMY SECRETIONS NOTED. PATIENT WAS POSITIONED TO RIGHT SIDE. PATIENT REPOSITIONED BACK TO HIS BACK BY RNS AND SATURATION IMPROVED. WILL CONTINUE TO MONITOR
--- NOTE | 2019-10-20 13:12 | NUR ---
WOUND CARE NOTE: NEW WOUND CONSULT ORDERED FOR BARIATRIC AIR BED REQUEST. PATIENT WEIGHS 162.2 KG. BEDSIDE NURSE SANDRA, FEELS THAT PATIENT FITS WELL ON ICU BED, ABLE TO TURN/RESPOSITION WITHOUT ISSUES. PATIENT IS IN THE WEIGHT ALLOWANCE FOR ICU BED, AND THE FACT THAT HE FITS WELL ON THE BED, NO BARIATRIC AIR BED NEEDED AT THIS TIME. WILL CONTINUE TO MONITOR PATIENT FOR SKIN INTEGRITY. RECOMMEND: DAILY/PRN DRESSING CHANGE TO LEFT SUBCLAVIAN DRAINING WOUND, CONTINUATION WITH ALL OTHER WOUND CARE ORDERS PREVIOUSLY PRESCRIBED BY MD. WOUND CARE TEAM WILL CONTINUE TO MONITOR.
--- NOTE | 2019-10-20 13:30 | NUR ---
PTT 47.3. INCREASED HEPARIN GTT. TO 1850 UNITS/HR. FROM 1650 UNITS/HR. PER PROTOCOL, NO BOLUS. NEXT PT/PTT IN 6HRS.
--- NOTE | 2019-10-20 14:30 | NUR ---
SPOKE WITH ALEX FROM [facility] [place] [place] AND SAID THEY WOULD NOT BE ABLE TO TAKE PT. FOR HIGHER LEVEL OF CARE DUE TO PT'S. GIRTH BEING >28 IN. PT'S. GIRTH >29 IN.
--- NOTE | 2019-10-20 14:50 | NUR ---
DR. Gerald MENJIVAR Provider/Hospitalist at bedside. GAVE UPDATE ON PT. SAID TO ALSO CALL [facility] TO SEE IF WE CAN GET ICU BED FOR HIGHER LEVEL OF CARE. INFORMED THAT DR. CARLISLE WOULD LIKE TO SPEAK WITH HIM.
--- NOTE | 2019-10-20 15:02 | NUR ---
PAGED BI DATA ARCHITECT, DUGLAS ENGRAVER HAND HARD METALS.
--- NOTE | 2019-10-20 15:10 | NUR ---
DUGLAS FROM PLAYGROUND ATTENDANT CALLED AND GAVE PHONE NUMBER FOR [facility] AND SAID TO CALL AND GIVE CLINICAL ON PT. ALSO SAID TO FAX ALL PAPERWORK TO [facility] AND [facility] FOR TRANSFER TO HIGHER LEVEL OF CARE.
--- NOTE | 2019-10-20 15:35 | NUR ---
CALLED [facility] AND SPOKE WITH HEATHER REGARDING TRANSFER FOR HIGHER LEVEL OF CARE AND REASON FOR TRANSFER. SHE SAID TO FAX THE FACESHEET FOR NOW.
[2019-10-20] MEDS: ACETAMINOPHEN 325 MG TAB PO PRN ×2 (15:46→21:20)
--- NOTE | 2019-10-20 15:46 | NUR ---
TEMP 101.5 ORALLY. PLACED ICE PACKS JOSE. AXILLA. MED. PT. WITH TYLENOL 650 MG. VIA OGT. NO COVERS ON PT.
--- NOTE | 2019-10-20 16:10 | NUR ---
ALL PAPERWORK FAXED TO [facility] AND [facility] REGARDING TRANSFER TO HIGHER LEVEL OF CARE.
--- NOTE | 2019-10-20 16:40 | NUR ---
HEATHER CALLED FROM [facility] AND ASKED IF WE CAN FAX H&P.
--- NOTE | 2019-10-20 16:50 | NUR ---
KYREE FROM [facility] CALLED AND SAID THERE WERE NO ICU BEDS AVAILABLE AT THIS TIME.
[2019-10-20] MEDS ORDERED: VANCOMYCIN 500 MG in D5W 5% 100 ML IV ONE (17:00)
--- NOTE | 2019-10-20 17:03 | NUR ---
MD Called/paged Dr. MCKEON called re:[[facility] COVER CREASER SAID OUR MD NEED TO SPEAK WITH THERE MD TO SEE IF PT. WILL BE ACCEPTED]. Waiting for call back. Continue care.
--- NOTE | 2019-10-20 17:10 | NUR ---
MD returned call Dr. MCKEON returned call, updated on patient status and reason for call, GAVE PHONE NUMBER FOR [facility] TO TALK MD TO MD. Continue care.
--- NOTE | 2019-10-20 17:30 | NUR ---
SHRINKING MACHINE OPERATOR FROM [facility] CALLED, GAVE UPDATE ON PT. SAID THEY WOULD NEED TO HAVE AUTHORIZATION FROM INSURANCE 1ST. BEFORE THEY CAN ACCEPT PT. AND WOULD NOT BE ABLE TO DO IT UNTIL THIS COMING MON.
--- NOTE | 2019-10-20 17:45 | NUR ---
DRILL DOCTOR FROM [facility] CALLED AND SAID THERE IS NO BED AVAILABLE AT THIS TIME, PT. IS ON THE WAITING LIST.
--- NOTE | 2019-10-20 18:00 | NUR ---
TEMP DECREASED TO 99.9 ORALLY.
--- NOTE | 2019-10-20 19:15 | NUR ---
CRYS FROM [facility] CALLED TRANSFER CENTER AND WANTED UPDATE ON PT. SAID THEY NEED AUTHORIZATION FROM [facility] AND FAXED TO THEM.
--- NOTE | 2019-10-20 19:39 | NUR ---
SPOKE WITH COMMERCIAL HELICOPTER PILOT ABOUT [facility] AUTHORIZATION: PER DORIE BRAYCOMMERCIAL HELICOPTER PILOT, THERE IS NO PINBALL MACHINE REPAIRER UNHAIRING MACHINE OPERATOR AT THIS TIME AND AUTHORIZATION WILL HAVE TO WAIT UNTIL TOMORROW.
--- NOTE | 2019-10-20 19:45 | NUR ---
TEMP 102.6F ORALLY - COOLING MEASURES APPLIED: ICE PACKS APPLIED TO BILATERAL AXILLA, BEHIND NECK, LEFT GROIN, FAN PLACED IN ROOM, AND COOL WASH RAG PLACED TO FOREHEAD
--- NOTE | 2019-10-20 20:00 | NUR ---
PLACED BED ON AUTO ROTATE: 30 DEGREES LEFT AND RIGHT WITH 60 MINUTE HOLD RIGHT, CENTER, AND LEFT. BED RAILS UP, HOB > 30 DEGREES
[2019-10-20 20:34] LABS: Creatinine, Urine 39 mg/dL (30.0-125.0); Sodium Urine 37 mmol/L (40-220)
--- NOTE | 2019-10-20 20:37 | NUR ---
INQUIRED WITH LAB ABOUT PTT RESULTS - PER LAB SPECIMEN IS STILL ON THE MACHINE, APPROX 10 MINUTES LEFT
[2019-10-20 20:44] LABS: INR 1.05 (0.9-1.15)
--- NOTE | 2019-10-20 20:53 | NUR ---
TURNED ON HEPARIN GTT - PER LAB, PTT BEING AUTOMATICALLY RE-RAN BUT PER LAB, THAT USUALLY OCCURS BECAUSE THE VALUE IS HIGH Addendum: 10/20/19 at 2127 by Magalie Vazquez RN RN TURNED OFF HEPARIN GTT
--- NOTE | 2019-10-20 21:00 | NUR ---
UNABLE TO COMPLETE SEDATION VACATION AT THIS TIME: D/T RESPIRATORY INSTABILITY Addendum: 10/20/19 at 2136 by Magalie Vazquez RN RN Amended: Links added.
[2019-10-20] MEDS: ATORVASTATIN 20 MG TAB PO SCH (21:20)
--- NOTE | 2019-10-20 21:25 | NUR ---
TEMP 101F - CONTINUE COOLING MEASURES - TYLENOL PRN GIVEN
[2019-10-20 21:26] LABS: Partial Thromboplastin Time > 139.0 sec (23.64-32.05)
--- NOTE | 2019-10-20 21:26 | NUR ---
LAB CONFIRMED PTT > 139 - CONTINUE HOLD PER PROTOCOL
--- NOTE | 2019-10-20 22:00 | NUR ---
RESTARTED HEPARIN GTT PER PROTOCOL
--- NOTE | 2019-10-20 22:30 | NUR ---
TEMP DOWN TO 99.2F ORALLY
[2019-10-21] VITALS (98 sets, daily range): BP systolic 88–132; BP diastolic 39–65
[2019-10-21] MEDS: fentaNYL Drip 2500mCg/250mlNS 250 ML IV SCH (00:01)
[2019-10-21] MEDS: IPRATROPIUM BROM 0.5 MG/2.5ML INH SOL NEB SCH ×4 (00:09→18:21)
[2019-10-21] MEDS: ALBUTEROL SULF 2.5 MG/0.5ML(0.5%) NEB SOLN NEB SCH ×4 (00:09→18:21)
[2019-10-21] MEDS: PROPOFOL 100 ML IV SCH ×9 (00:20→20:06)
--- NOTE | 2019-10-21 01:22 | NUR ---
SPOKE WITH [facility] TRANSFER CENTER: UPDATED ON PATIENT'S ABDOMINAL GIRTH AND CHEST WIDTH. [facility] ASKED FOR A COPY OF COVID 19 RESULTS.
--- NOTE | 2019-10-21 01:28 | NUR ---
FAXED COVID 19 RESULTS TO [facility] TRANSFER [facility]
--- NOTE | 2019-10-21 03:00 | NUR ---
REINSERTED RECTAL PROBE - TEMP 99.1F
--- NOTE | 2019-10-21 03:00 | NUR ---
SMALL PASTY BM X1
--- NOTE | 2019-10-21 03:00 | NUR ---
BED BATH WITH CHG WIPES, NICOLLE CARE, BRANTLEY CARE, ORAL CARE, AND PARTIAL LINEN CHANGE COMPLETED
[2019-10-21] MEDS: MIDAZOLAM DRIP 50 mg/50mL 50 ML IV SCH ×5 (03:33→20:06)
--- NOTE | 2019-10-21 03:35 | NUR ---
CHANGED CVC DRESSING AND INJECTION CAPS VIA STERILE TECHNIQUE: NOTED TO BE ~5 CM OUT ON DRESSING REMOVAL. REMAINS AT ~5 CM WHEN REDRESSED
[2019-10-21 04:17] LABS: Basophils # (auto) 0.1 10 ^3/uL (0-0.2); Basophils % (auto) 0.6 % (0.0-2.0); Eosinophils # (auto) 0.3 10 ^3/uL (0-0.8); Eosinophils % (auto) 1.9 % (0.0-7.0); Hemoglobin 8.5 g/dL (13.5-17.5); Lymphocytes # (auto) 0.9 10 ^3/uL (0.4-5.4); Lymphocytes % (auto) 6.5 % (10.0-50.0); Mean Corpuscular Hemoglobin 29.8 pg (28.0-32.0); Mean Corpuscular Hgb Conc. 34.1 g/dL (32.0-36.0); Mean Corpuscular Volume 87.5 fL (80.0-100.0); Monocytes % (auto) 7.1 % (0.0-12.0); Neutrophils # (auto) 12.1 10 ^3/uL (1.6-8.6); Neutrophils % (auto) 83.9 % (37.0-80.0); Platelet Count (auto) 87 10^3/uL (140-450); Red Blood Cells 2.85 10^6/uL (4.5-5.90); Red Cell Distribution Width 15.1 % (11.8-14.3); White Blood Cell 14.5 10^3/uL (4.4-10.8)
[2019-10-21 04:38] LABS: Calcium 6.3 mg/dL (8.5-10.1); Chloride 99 mmol/L (98-107); Potassium 3.3 mmol/L (3.5-5.1); Sodium 132 mmol/L (136-145)
[2019-10-21 04:41] LABS: Anion Gap 11 (5-15); BUN/Creatinine Ratio 7.1; Blood Urea Nitrogen 34 mg/dL (7-18); Carbon Dioxide 22 mmol/L (21-32); GFR African American 17 mL/min; GFR Non-African American 14 mL/min; Glucose 191 mg/dL (74-106)
[2019-10-21 04:55] LABS: INR 1.07 (0.9-1.15)
--- NOTE | 2019-10-21 04:55 | NUR ---
HEPARIN GTT STOPPED - PER LAB, PTT > 139
[2019-10-21] MEDS: LEVOTHYROXINE SODIUM 25 MCG TAB PO SCH (05:19)
[2019-10-21] MEDS: InsuLIN REG 1unit/0.01ml Soln (100units/ml) SC SCH ×3 (05:21→18:13)
[2019-10-21] MEDS: ACCU-CHEK COMFORT CURVE STRIP VI SCH ×3 (05:22→18:07)
[2019-10-21] MEDS: NOREPINEPHRINE 8 MG/250ML KIT 250 ML IV SCH (05:54)
--- NOTE | 2019-10-21 05:57 | NUR ---
RESTARTED HEPARIN GTT PER PROTOCOL
--- NOTE | 2019-10-21 07:20 | NUR ---
REPORT AND CARE ENDORSED TO SANDRA OLIVAS
[2019-10-21] MEDS: MEROPENEM 1GM IVPB 100 ML IV SCH ×2 (07:29→20:37)
--- NOTE | 2019-10-21 07:30 | NUR ---
ASSESS- PT. LYING IN BED ON VENT SIZE #8.0 ET, 24 AT THE LIP, AC-16, TV-550, PEEP-7, FIO2-45%. LUNGS COARSE JOSE. INSPIRATORY AND EXPIRATORY WITH RALES JOSE. INSPIRATORY AND EXPIRATORY. PT. HAS GAG/COUGH REFLEX. PUPILS 3 AND SLUGGISH JOSE. ON VERSED GTT. AT 15 MG./HR. AND PROPOFOL GTT. AT 50 MCG. PT. RESPONDS TO PAINFUL/TACTILE STIMULI, NO MOVEMENT OF EXTREMITIES SEEN. DOES NOT FOLLOW ANY COMMANDS. ABD. SOFT, LG. BOWEL SOUNDS ALL FOUR QUADRANTS. OGT IN PLACE, CLAMPED. F/C TO GRAVITY WITH CLEAR YELLOW URINE. RADIAL PULSES STRONG, PALPABLE JOSE. RT. PEDAL PULSE WEAK, PALPABLE. 4 PLUS EDEMA TO RT. FT./ANKLE. LT. SUBCLAVIAN WITH TUNNELED CATHETER INTACT, DSG. D/I. SM. OPENING ABOVE CATHETER WITH PUS DRAINAGE WITH OPTIFOAM DSG. D/I. LT. KBA WITH SKIN TEAR WITH OPTIFOAM DSG. D/I. RT. GREAT TOE WITH SCAB. TLC RT. IJ INTACT. LEVOPHED GTT. AT 10 MCG. HEPARIN GTT. AT 1250 UNITS/HR. VIA 20 GAUGE IV RT. FOREARM. NO SIGNS OF BLEEDING. RECTAL PROBE IN PLACE.
--- NOTE | 2019-10-21 08:15 | NUR ---
PT. PLACED ON BEDPAN AND HAD SM. LOOSE BROWN STOOL. NICOLLE CARE DONE. TOLERATED WELL. Addendum: 10/21/19 at 1648 by Harper Hahn RN CHARTED ON WRONG PT.
--- NOTE | 2019-10-21 08:40 | NUR ---
ILIANA FROM [facility] AND SAID THEY HAVE TO DECLINE PT., WILL NOT FIT IN THERE CT MACHINE.
[2019-10-21] MEDS: PANTOPRAZOLE 40 MG/10 ML VIAL INJ IV SCH (09:42)
[2019-10-21] MEDS: GABAPENTIN 300 MG CAP PO SCH (09:43)
[2019-10-21] MEDS: ASPirin 81 mg TAB PO SCH (09:43)
[2019-10-21] MEDS: HEPARIN DRIP/D5W 100UNITS/ML 250 ML IV SCH (09:44)
[2019-10-21] MEDS: MUPIROCIN 2% OINT 15gm or 22gm EACHNOSTRI SCH ×2 (09:46→22:26)
[2019-10-21] MEDS: DULOXETINE 20 MG CAP PO SCH (10:00)
--- NOTE | 2019-10-21 10:00 | NUR ---
TEMP 100.2 RECTALLY. PLACED ICE PACKS JOSE. AXILLA. NO COVERS ON PT.
--- NOTE | 2019-10-21 10:35 | NUR ---
DR. TOVAR Provider/Hospitalist at bedside. UPDATED ON PT., K LEVEL 3.3 TODAY. NEW ORDERS RECEIVED.
[2019-10-21] MEDS: POTASSIUM CHL 20MEQ/100ML 100 ML IV SCH ×2 (10:54→12:21)
--- NOTE | 2019-10-21 11:11 | NUR ---
DR. QUIROZ Provider/Hospitalist at bedside. GAVE UPDATE ON PT. NEW ORDERS RECEIVED.
--- NOTE | 2019-10-21 11:15 | NUR ---
DR. Gerald MENJIVAR Provider/Hospitalist at bedside. GAVE UPDATE ON PT.
[2019-10-21 13:19] LABS: INR 1.04 (0.9-1.15)
--- NOTE | 2019-10-21 13:21 | NUR ---
PTT-26.6. GAVE HEPARIN 5000 UNIT IV BOLUS AND INCREASED HEPARIN GTT. BY 300 UNITS/HR. PER PROTOCOL. GTT. NOW 1550 UNITS/HR. NOTIFIED PHARMACIST. NEXT PT/PTT IN 6HRS. NO SIGNS OF BLEEDING.
[2019-10-21 13:23] LABS: Partial Thromboplastin Time 26.6 sec (23.64-32.05)
[2019-10-21] MEDS ORDERED: HEPARIN SODIUM (PORCINE) 5000 UNITS/ML 1ML VIAL IV ONE (13:30)
--- NOTE | 2019-10-21 13:30 | NUR ---
TEMP DECREASED TO 99.9 RECTALLY. ICE PACKS JOSE. AXILLA REMAIN IN PLACE. NO COVERS ON PT.
[2019-10-21 13:33] LABS: Partial Thromboplastin Time 44.6 sec (23.64-32.05)
[2019-10-21] MEDS ORDERED: VANCOMYCIN 500 MG in D5W 5% 100 ML IV ONE (15:00)
--- NOTE | 2019-10-21 15:40 | NUR ---
PT. MOVED TO ICU RM. 106 ON BED WITH RT BAGGING PT. ALL PT'S. BELONGINGS MOVED TO NEW RM.
--- NOTE | 2019-10-21 16:15 | NUR ---
TEMP 100.2 RECTALLY. PLACED ICE PACKS JOSE. AXILLA AND GROIN AREA.
--- NOTE | 2019-10-21 16:25 | NUR ---
Respiratory note: PT TRANSPORTED TO ICU ROOM 106 WITHOUT INCIDENT. RN AT BEDSIDE.
[2019-10-21 19:48] LABS: Basophils # (auto) 0.1 10 ^3/uL (0-0.2); Basophils % (auto) 0.7 % (0.0-2.0); Eosinophils # (auto) 0.3 10 ^3/uL (0-0.8); Eosinophils % (auto) 2.1 % (0.0-7.0); Hematocrit 24.7 % (41.0-53.0); Hemoglobin 8.6 g/dL (13.5-17.5); Lymphocytes # (auto) 1.1 10 ^3/uL (0.4-5.4); Lymphocytes % (auto) 7.3 % (10.0-50.0); Mean Corpuscular Hemoglobin 30.5 pg (28.0-32.0); Mean Corpuscular Hgb Conc. 34.7 g/dL (32.0-36.0); Monocytes % (auto) 6.6 % (0.0-12.0); Neutrophils # (auto) 12.2 10 ^3/uL (1.6-8.6); Neutrophils % (auto) 83.3 % (37.0-80.0); Nucleated Red Blood Cells % 0.1 %; Platelet Count (auto) 104 10^3/uL (140-450); Red Blood Cells 2.81 10^6/uL (4.5-5.90); Red Cell Distribution Width 15.4 % (11.8-14.3); White Blood Cell 14.6 10^3/uL (4.4-10.8)
--- NOTE | 2019-10-21 20:00 | NUR ---
RECIEVED PT VENTILATED AND SEDATE, SL FEBRILE 100.4, ICE PACKS TO AXILLA AN GROIN AREA, SEE INTERVENTIONS FOR VITAL SIGNS DRIPS AND HEAD TO TOE ASSESSMENT, MOUTH CARE DONE, BLOODY ORAL SECRETIONS
[2019-10-21 20:14] LABS: Alkaline Phosphatase 239 U/L (45-117); Bilirubin, Direct 1.3 mg/dL (0-0.2); Bilirubin, Total 1.7 mg/dL (0.2-1.0); GFR African American 15 mL/min; GFR Non-African American 13 mL/min
[2019-10-21 20:35] LABS: Alanine Aminotransferase 51 U/L (16-61); Anion Gap 11 (5-15); Aspartate Aminotransferase 107 U/L (15-37); BUN/Creatinine Ratio 7.1; Blood Urea Nitrogen 37 mg/dL (7-18); Calcium 6.2 mg/dL (8.5-10.1); Carbon Dioxide 22 mmol/L (21-32); Chloride 98 mmol/L (98-107); Glucose 204 mg/dL (74-106); Potassium 3.6 mmol/L (3.5-5.1); Sodium 131 mmol/L (136-145)
[2019-10-21 20:36] LABS: Magnesium 1.8 mg/dL (1.6-2.6); Total Protein 4.6 g/dL (6.4-8.2)
[2019-10-21 20:39] LABS: INR 1.07 (0.9-1.15)
[2019-10-21 20:40] LABS: Albumin 0.8 g/dL (3.4-5.0); Partial Thromboplastin Time 23.2 sec (23.64-32.05)
--- NOTE | 2019-10-21 21:20 | NUR ---
MESSAGE LEFT ON DR. Yonis LORENZO ANSWERING SERVICE TO REPORT CRITICAL LOW ALBUMIN 0.8
[2019-10-21] MEDS: ATORVASTATIN 20 MG TAB PO SCH (22:26)
[2019-10-22] VITALS (91 sets, daily range): BP systolic 86–164; BP diastolic 39–75
[2019-10-22] MEDS: fentaNYL Drip 2500mCg/250mlNS 250 ML IV SCH (00:01)
[2019-10-22] MEDS: IPRATROPIUM BROM 0.5 MG/2.5ML INH SOL NEB SCH ×4 (00:37→18:48)
[2019-10-22] MEDS: ALBUTEROL SULF 2.5 MG/0.5ML(0.5%) NEB SOLN NEB SCH ×4 (00:37→18:48)
[2019-10-22] MEDS: InsuLIN REG 1unit/0.01ml Soln (100units/ml) SC SCH ×4 (00:41→18:36)
[2019-10-22] MEDS: PROPOFOL 100 ML IV SCH ×8 (01:14→22:40)
[2019-10-22 02:10] LABS: INR 1.07 (0.9-1.15)
[2019-10-22 02:11] LABS: Partial Thromboplastin Time 28.2 sec (23.64-32.05)
[2019-10-22] MEDS ORDERED: HEPARIN SODIUM (PORCINE) 5000 UNITS/ML 1ML VIAL ONE (02:24)
[2019-10-22 03:52] LABS: Basophils # (auto) 0.1 10 ^3/uL (0-0.2); Basophils % (auto) 0.7 % (0.0-2.0); Eosinophils # (auto) 0.4 10 ^3/uL (0-0.8); Eosinophils % (auto) 2.5 % (0.0-7.0); Hemoglobin 8.5 g/dL (13.5-17.5); Lymphocytes # (auto) 1.4 10 ^3/uL (0.4-5.4); Lymphocytes % (auto) 9.2 % (10.0-50.0); Mean Corpuscular Hemoglobin 31.3 pg (28.0-32.0); Mean Corpuscular Hgb Conc. 35.6 g/dL (32.0-36.0); Mean Corpuscular Volume 87.7 fL (80.0-100.0); Monocytes # (auto) 1.2 10 ^3/uL (0-1.3); Monocytes % (auto) 8.1 % (0.0-12.0); Neutrophils # (auto) 12.1 10 ^3/uL (1.6-8.6); Neutrophils % (auto) 79.5 % (37.0-80.0); Platelet Count (auto) 108 10^3/uL (140-450); Red Blood Cells 2.73 10^6/uL (4.5-5.90); Red Cell Distribution Width 15.2 % (11.8-14.3); White Blood Cell 15.2 10^3/uL (4.4-10.8)
[2019-10-22] MEDS: ACETAMINOPHEN 325 MG TAB PO PRN ×2 (04:00→14:20)
--- NOTE | 2019-10-22 04:00 | NUR ---
PT REMAINS FEBRILE, COLD BATH GIVE AND AG CHANGE FOLLOWED BY TYLENOL 650MG VIA OGT, NO STOOLS, VERSED GTT DECREASED TO 12 MG/HR
[2019-10-22 04:07] LABS: BUN/Creatinine Ratio 7.3; Potassium 3.5 mmol/L (3.5-5.1)
[2019-10-22 04:09] LABS: Calcium 5.8 mg/dL (8.5-10.1)
[2019-10-22 04:14] LABS: Magnesium 1.4 mg/dL (1.6-2.6)
[2019-10-22 04:16] LABS: Bilirubin, Total 1.7 mg/dL (0.2-1.0)
[2019-10-22 04:20] LABS: Bilirubin, Direct 1.3 mg/dL (0-0.2)
[2019-10-22 04:38] LABS: Total Protein 4.3 g/dL (6.4-8.2)
[2019-10-22 04:40] LABS: Albumin 0.8 g/dL (3.4-5.0)
[2019-10-22] MEDS: HEPARIN DRIP/D5W 100UNITS/ML 250 ML IV SCH ×2 (05:25→15:42)
[2019-10-22] MEDS: MIDAZOLAM DRIP 50 mg/50mL 50 ML IV SCH ×4 (05:27→20:00)
[2019-10-22] MEDS: ACCU-CHEK COMFORT CURVE STRIP VI SCH ×4 (06:00→18:36)
[2019-10-22] MEDS ORDERED: SODIUM CHL 0.9% 1000 ML BAG XX ONE (07:00)
[2019-10-22] MEDS: LEVOTHYROXINE SODIUM 25 MCG TAB PO SCH (07:00)
--- NOTE | 2019-10-22 07:10 | NUR ---
OPENING NOTE SHIFT REPORT RECEIVED AND ASSUMED CARE OF PT FROM ROHIT OLIVAS
--- NOTE | 2019-10-22 07:20 | NUR ---
OPENING NOTE SHIFT REPORT RECEIVED AND ASSUMED CARE OF PT FROM ROHIT OLIVAS
[2019-10-22] MEDS: MEROPENEM 1GM IVPB 100 ML IV SCH ×2 (08:10→20:00)
--- NOTE | 2019-10-22 08:46 | NUR ---
I called [facility] [phone] and spoke with Nanci-she has patient's weight/measurements and will give me a call back to let me know if they are able to accommodate this patient. She also said that they are not contracted with [facility].
--- NOTE | 2019-10-22 08:59 | NUR ---
I called [facility] [phone] and spoke with housekeeping/laundry Shashank, she said to fax the face sheet-when she comes back from her meeting she will give me a call to let me know if they can accommodate this patient.
--- NOTE | 2019-10-22 09:02 | NUR ---
I called [facility] [phone] and left message with [employer]missions [employer] History Teacher asking about bed availability.
[2019-10-22 09:20] LABS: Partial Thromboplastin Time 22.6 sec (23.64-32.05)
[2019-10-22 09:22] LABS: INR 1.11 (0.9-1.15)
--- NOTE | 2019-10-22 09:28 | NUR ---
I called [facility] [phone] and spoke with Arnoldo at the Transfer Center, faxed her face sheet and patient's weight/measurements-she will give me a call back to let me know if they can accommodate this patient. I spoke with patient's nurse Colette, she is going to re-check patient's abdominal girth.
--- NOTE | 2019-10-22 09:30 | NUR ---
I received a call from Graciela at [facility] letting me know that they have no ICU beds available.
--- NOTE | 2019-10-22 09:30 | NUR ---
SPOKE WITH ROSENDO WITH CASE MANAGEMENT/OUTPATIENT PROGRAM COORDINATOR REGARDING ABDOMINAL GIRTH IN ORDER TO GIVE INFORMATION TO TRANSFER CENTERS
--- NOTE | 2019-10-22 09:30 | NUR ---
LEFT MESSAGE FOR CONTACT AMANDA FOR CONSENT FOR REPLACEMENT OF DIALYSIS CATHETER. AWAITING CALL BACK
--- NOTE | 2019-10-22 09:34 | NUR ---
I called the [facility] Transfer [facility] [phone] and spoke with Rachel, she said they can not accommodate this patient-their CT scan machine can hold up to 500 pounds and 27.5 inches abdominal girth.
--- NOTE | 2019-10-22 09:45 | NUR ---
FINISHED CARPET INSPECTOR AT BEDSIDE
--- NOTE | 2019-10-22 09:50 | NUR ---
SPOKE TO SISTER AMANDA REGARDING CONSENT FOR TEMPORARY REPLACEMENT OF DIALYSIS CATHETER. WITNESS TELEPHONE CONSENT SIGNED. SISTER HAS SOME QUESTIONS REGARDING POSSIBLE TRANSFER. SISTER TRANSFERRED TO [facility] IN FINANCIAL PLANNING ASSISTANT/CASE MANAGEMENT
[2019-10-22] MEDS: DULOXETINE 20 MG CAP PO SCH (10:00)
[2019-10-22] MEDS: MUPIROCIN 2% OINT 15gm or 22gm EACHNOSTRI SCH ×2 (10:00→21:42)
--- NOTE | 2019-10-22 10:00 | NUR ---
ENVIRONMENTAL PROTECTION SPECIALIST AT BEDSIDE
[2019-10-22] MEDS ORDERED: HEPARIN SODIUM (PORCINE) 5000 UNITS/ML 1ML VIAL IV ONE (10:30)
[2019-10-22] MEDS: NOREPINEPHRINE 8 MG/250ML KIT 250 ML IV SCH ×3 (10:39→22:58)
[2019-10-22] MEDS: PANTOPRAZOLE 40 MG/10 ML VIAL INJ IV SCH (10:39)
--- NOTE | 2019-10-22 11:09 | NUR ---
SPOKE WITH DR. Gerald JARAMILLO ORDERS RECEIVED. PHYSICIAN MADE AWARE OF PHARMACY RECOMMENDATION OF ADDITIONAL ANTIBIOTIC, CALCIUM, AND ALBUMIN LEVELS BUT NO ORDERS FOR THESE ITEMS AT THIS TIME
--- NOTE | 2019-10-22 11:18 | NUR ---
Nutrition Follow-up Wt.: 164.0 kg Pt remains NPO, awaiting possible transfer, per documentation improvement specialist. Pt currently under deep sedation, receiving Propofol @50.349 ml/hr providing 1329 kcal. Will continue to monitor NPO status, skin status, pertinent labs and weight trends. Will f/u in 2 to 3 days. Est. Energy Needs: 4264-9294 kcal (12-15 kcal/kg BW). Est. Protein Needs: 114-133 gms/day (1.2-1.4 gms/kg Adj.BW). Labs 10/21: Na 130 L, Cl 97 L, BUN 39 H, Cr 5.31 H, Glucose 187 H, POC 159 H, Ca 5.8 L, Mg 1.4 L, total bilirubin 1.7 H, AST 111 H, Alkaline phosphatase 245 H, TP 4.3 L, Albumin 0.8 L Skin: Amarjit scale 10, high risk, open abrasion to L BKA stump. GI: Pt had BM on 10/21/19 per documentation improvement specialist. PES: 1) Altered nutrition related lab values r/t current medical condition aeb hyponatremia, elevated RFTs, hypocalcemia, hypoalbuminemia 2) Obese, Class III r/t excessive energy intake prior to admission aeb adjusted BMI 56 kg/m2 and 246% adjusted IBW Recommendations: 1) If still NPO in 48 hours,consider EN support of Nepro with Carb Steady @45 ml/hr + 2 pkt Prostat to meet energy and protein needs 2) Advance gradually to oral Renal Standard diet when medically appropriate. 3) Continue current plan of care.
--- NOTE | 2019-10-22 11:26 | NUR ---
instructional coordinator 10/20/2019 While instructional coordinator I reached out to [facility] and per Rachel they cannot accommodate patients weight. Per Katalina at [facility] they did not get fax from Divya on Tuesday and asked for us to re-send. Per Katalina she does no have bed available, but will hold info if one becomes available. [facility] had no beds. [facility] per Mercedez they did not have transfer packet and asked for it to be re-sent. I informed Harper OLIVAS of all information. Harper was also given [facility] info to fax as well. Addendum: 10/22/19 at 1130 by Gricelda CAMPUZANO Amended: Links added.
--- NOTE | 2019-10-22 11:40 | NUR ---
DR. TOVAR AT BEDSIDE ORDERS RECEIVED
--- NOTE | 2019-10-22 11:42 | NUR ---
I spoke with patient's sister Tete regarding the status of the transfer to higher level of care. I let her know which facilities I was reaching out to, as well as the facilities that can not accommodate him. I let her know that I am reaching out to several facilities both contracted and not contracted with his insurance. I answered all her questions and let her know that I would follow up with her later for an update.
--- NOTE | 2019-10-22 11:44 | NUR ---
I attempted to call [facility] several times [phone]-their phone lines are not working at this time-to call back later.
--- NOTE | 2019-10-22 11:45 | NUR ---
I called [facility] [phone] and spoke with Betzy, she said their CT scanner holds up to 350 pounds and no more than 27 inches abd. girth-therefore they can not accept this patient.
--- NOTE | 2019-10-22 11:46 | NUR ---
I spoke with Arnoldo at the [facility] [phone] and she said they can not accommodate this patient-their CT scanner can hold up to 650 pounds but no more than 30 inches abd girth.
--- NOTE | 2019-10-22 11:50 | NUR ---
LEFT MESSAGE FOR DR. Gerald JARAMILLO REGARDING DR. TOVAR'S PLAN REGARDING DIALYSIS CATHETER
--- NOTE | 2019-10-22 12:19 | NUR ---
I called [facility] transfer center [phone] and was told they can not accommodate this patient-their CT scanner holds up to 450 pounds but no more than 32 inches girth. I called [facility] Transfer Center [phone] and spoke with Mike-they can not accommodate this patient-their CT scanner will go up to 600 pounds but no more than 30 inches girth. I called [facility] and spoke with Theresa, she said they can not accommodate this patient-their CT scanner holds up to 500 pounds but no more than 30 inches girth. [facility] in [place] [phone] and spoke with Suad Ybarra, she said their CT scanner holds up to 500 pounds-no more than 50 inches girth. I called [facility] Software Support Specialist Alison [phone] to make her aware of all the facilities that I have reached out to-letting her know that [facility] can accommodate this patient but they have no ICU beds available and have several people waiting for a bed. I let her know that I had reached out to [facility] in [place] and that they can accommodate this patient's size-she is going to speak with her hospice executive director regarding this case and will give me a call back to let me know if they will authorize [facility].
[2019-10-22] MEDS: MAGNESIUM SULFATE 1GM/100ML 100 ML IV SCH ×2 (13:59→15:45)
--- NOTE | 2019-10-22 14:12 | NUR ---
I received a message from [facility] Ring Spinner Alison asking me to contact [facility] to see if they can accommodate this patient. I called [facility] [phone] and was told that their CT scanner will hold up to 640 pounds, but no more than 35 inches girth so they can not accommodate the patient. I called [facility] Ring Spinner Alison to let her know and to ask if they will authorize [facility] in [place], left message-awaiting return call.
--- NOTE | 2019-10-22 15:11 | NUR ---
I called [facility] Battery Test Engineer Alison ([phone])-no return call from first message left. I left a second message asking her to call me regarding possible transfer to [facility] in [place]-awaiting return call.
--- NOTE | 2019-10-22 15:15 | NUR ---
I spoke with patient's sister Tete and updated her on the status of the transfer.
[2019-10-22] MEDS: GABAPENTIN 300 MG CAP PO SCH (15:45)
[2019-10-22] MEDS: ASPirin 81 mg TAB PO SCH (15:45)
--- NOTE | 2019-10-22 15:51 | NUR ---
I received a call from [facility] Despatch Clerk Alison letting me know that she spoke with her medical office assistant regarding [facility] in [place]-she said her medical office assistant does not think the patient is stable enough to transfer all the way to [place]. She requested that I contact Dr. Guajardo and ask if he would like to speak with her medical direct regarding the transfer request. I called Dr. Yonis Guajardo and left him a message regarding the same-awaiting return call.
[2019-10-22] MEDS ORDERED: VANCOMYCIN 1GM/250ML 250 ML IV ONE (16:00)
--- NOTE | 2019-10-22 16:00 | NUR ---
DR. SEGOVIA AT BEDSIDE TO REMOVE DIALYSIS CATHETER TO LEFT SUBCLAVIAN. PRESSURE DRESSING APPLIED. CATHETER TIP SENT TO LAB. NO S/S OF BLEEDING. WILL CONTINUE TO MONITOR.
--- NOTE | 2019-10-22 16:30 | NUR ---
DR. PHILLIPS PAGED AND RESPIRATORY THERAPIST PAGED REGARDING PT DESATTING. SUCTIONING DONE AND FI02 INCREASED AT THIS TIME
--- NOTE | 2019-10-22 16:40 | NUR ---
PT DOES NOT TOLERATE TURNS WELL
--- NOTE | 2019-10-22 16:43 | NUR ---
I called [facility] Program/Music Director Alison and provided her with contact information for Dr. Yonis Guajardo to give to her medical office technologist (no return call from Dr. Guajardo yet) regarding possible transfer to [facility] in [place].
--- NOTE | 2019-10-22 16:48 | NUR ---
I placed another call to [facility]-left message for warehouse handler asking if they can accommodate this patient. I also spoke with patient's sister Tete to update her on the status of the transfer.
--- NOTE | 2019-10-22 17:00 | NUR ---
HEPARIN TURNED OFF DUE TO PT BLEEDING FROM NARES AND ORAL CAVITY WELL BLOOD SEEN IN THE CATHETER AT THIS TIME. CALL OUT TO PHYSICIAN. WILL CONTINUE TO MONITOR
--- NOTE | 2019-10-22 17:12 | NUR ---
PAGED DR. Gerald JARAMILLO REGARDING PT BLEEDING
[2019-10-22 17:36] LABS: INR 1.12 (0.9-1.15); Partial Thromboplastin Time 21.2 sec (23.64-32.05)
--- NOTE | 2019-10-22 18:00 | NUR ---
RIGHT FOREARM IV CAME OUT WHEN TURNING PT CATHETER INTACT AND PRESSURE DRESSING APPLIED TO SITE. WILL CONTINUE TO MONITOR
--- NOTE | 2019-10-22 19:00 | NUR ---
NO CALL BACK FROM DR. Yonis JARAMILLO AT THIS TIME ENDORSED TO ROLL DOUGH DIVIDER RN TO TRY TO CONTACT PHYSICIAN REGARDING BLEEDING. PT IS NOT HAVING FURTHER S/S OF BLEEDING AT THIS TIME.
[2019-10-22 19:01] LABS: Hematocrit 25.4 % (41.0-53.0); Hemoglobin 8.6 g/dL (13.5-17.5)
--- NOTE | 2019-10-22 20:00 | NUR ---
ADMITTED FOR RESPIRATORY FAILURE. DIALYSIS PATIENT. + MRSA IN NARES AND BLOOD. INFECTED GAVINO CATHETER REMOVED TODAY. ORALLY INTUBATED . ETT TO VENTILATOR. ON AC MODE. FOLLOWING VENTILATOR BREATHS. PEEP IS 14. MINIMALLY BLEEDING FROM THE RIGHT NARE, ORAL CAVITY AND BRANTLEY HAS STRANDS OF BLOOD IN IT. HEPARIN DRIP SHUT OFF AROUND 1700 DUE TO PROFUSE BLEEDING. PAGED DR Yonis MENJIVAR. DR FISHER CALLED BACK. HE IS AWARE OF THE BLEEDING AND THE HEPARIN DRIP BEING SHUT OFF. ORDER RECEIVED TO KEEP HEPARIN OFF. TEMP 100.4 RECTALLY. TYLENOL GIVEN. TOP COOLING BLANKET ON. BP BEING SUPPORTED WITH LEVOPHED. SEDATION FOR VENTILATION : VESED 15MG/HR AND DIPRIVAN AT 50MCG/KG/MIN. OGT CLAMPED. OGT RESIDUAL MINIMAL AND GREEN IN COLOR. ABDOMEN OBESE. RIJ TLC. ALL PORTS WORKING. ONE OPEN. NO BM. BRANTLEY IN PLACE DRAINING KELLY LIQUID WITH BLOOD STRANDS. ON PROTONIX. DIALYSIS TODAY, REMOVED 4500CC. NOT MOVING EXTREMITIES. 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 QUARTER SIZE SCAB IS SEALED. FEW ODD SMALL SCABS ON RIGHT LEG. 3+GENERALIZED EDEMA. ALL PULSES STRONG WITH DOPPLER. NSR WITHOUT ECTOPY.
[2019-10-22 20:36] LABS: INR 1.11 (0.9-1.15); Partial Thromboplastin Time 24.2 sec (23.64-32.05)
[2019-10-22] MEDS ORDERED: EPOETIN ALFA 10,000 UNIT/1 ML VIAL SC ONE (21:00)
[2019-10-22 21:42] LABS: Basophils # (auto) 0.1 10 ^3/uL (0-0.2); Basophils % (auto) 0.4 % (0.0-2.0); Eosinophils # (auto) 0.3 10 ^3/uL (0-0.8); Hematocrit 25.2 % (41.0-53.0); Hemoglobin 8.6 g/dL (13.5-17.5); Lymphocytes # (auto) 1.3 10 ^3/uL (0.4-5.4); Lymphocytes % (auto) 8.3 % (10.0-50.0); Mean Corpuscular Hemoglobin 30.2 pg (28.0-32.0); Mean Corpuscular Hgb Conc. 34.2 g/dL (32.0-36.0); Mean Corpuscular Volume 88.3 fL (80.0-100.0); Monocytes # (auto) 1.6 10 ^3/uL (0-1.3); Monocytes % (auto) 10.1 % (0.0-12.0); Neutrophils # (auto) 12.6 10 ^3/uL (1.6-8.6); Neutrophils % (auto) 79.2 % (37.0-80.0); Platelet Count (auto) 151 10^3/uL (140-450); Red Blood Cells 2.86 10^6/uL (4.5-5.90); Red Cell Distribution Width 15.3 % (11.8-14.3); White Blood Cell 15.9 10^3/uL (4.4-10.8)
[2019-10-22] MEDS: ATORVASTATIN 20 MG TAB PO SCH (21:43)
[2019-10-22 21:59] LABS: BUN/Creatinine Ratio 6.3; Calcium 6.2 mg/dL (8.5-10.1); Magnesium 2.1 mg/dL (1.6-2.6); Potassium 3.5 mmol/L (3.5-5.1)
--- NOTE | 2019-10-22 22:00 | NUR ---
MODERATE AMOUNT SUCTIONED FROM THE ETT. ORAL CARE DONE AND IT IS BLOODY WITH A SMALL CLOT. RIGHT NARE IS DRAINING A SMALL AMOUNT OF WATERY RED DRNG. BRANTLEY IS STILL DRAINING KELLY WITH BLOOD STREAKS. COMPLETELY SEDATED. UNABLE TO DECREASE THE LEVOPHED.
[2019-10-23] VITALS (91 sets, daily range): BP systolic 97–158; BP diastolic 32–71
--- NOTE | 2019-10-23 | NUR ---
MINIMAL NASAL BLEEDING. ORAL CARE DONE, BLOODY SECRETIONS. PUPILS BARELY REACTING. BOTH ARE EQUAL AT 3. NO MOVEMENT OF EXTREMITIES TO PAINFUL STIMULI. ETT TO VENTILATOR. NO NEW VENTILATOR CHANGES. FIO2 DOWN TO 50%. PATIENT IS FOLLOWING THE VENTILATOR BREATHS. BRANTLEY: KELLY WITH BLOOD THREADS. PULSES WITH DOPPLER. TEMP UNCHANGED. COOLING BLANKET ON. NO RESIDUAL FROM THE CLAMPED OGT. OGT FLUSHED WITH 30CC OF H2O. STUMP DRESSING IS DRY. NSR WITHOUT ECTOPY.
[2019-10-23] MEDS: fentaNYL Drip 2500mCg/250mlNS 250 ML IV SCH (00:01)
[2019-10-23] MEDS: ALBUTEROL SULF 2.5 MG/0.5ML(0.5%) NEB SOLN NEB SCH ×4 (00:14→18:39)
[2019-10-23] MEDS: IPRATROPIUM BROM 0.5 MG/2.5ML INH SOL NEB SCH ×4 (00:14→18:39)
[2019-10-23] MEDS: ACCU-CHEK COMFORT CURVE STRIP VI SCH ×4 (00:24→17:32)
[2019-10-23] MEDS: InsuLIN REG 1unit/0.01ml Soln (100units/ml) SC SCH ×4 (00:24→17:33)
[2019-10-23] MEDS: MIDAZOLAM DRIP 50 mg/50mL 50 ML IV SCH ×5 (00:25→20:00)
[2019-10-23] MEDS: PROPOFOL 100 ML IV SCH ×6 (00:26→20:00)
--- NOTE | 2019-10-23 02:00 | NUR ---
FULLY SEDATED. LUNGS CLEAR. NO VENTILATOR CHANGES. FOLLOWING VENTILATOR RATE. ABDOMEN SOFT. MINIMAL DRNG FROM THE RIGHT NARE. CLEANED ORAL CAVITY THOROUGHLY. OBTAINED OLD BLOOD CLOTS FROM THE BACK OF THROAT.SMALL AMOUNT OF BLOOD IN URINE. IV SITE , OUTER DRESSING STAINED WITH BLOOD. CENTRAL LINE DRESSING CHANGE. OLD GAVINO SITE SHOWS OLD BLOOD. SITE CLEANED WITH CHLOROPREP AND REDRESSED WITH A FOAM DRESSING.NSR WITHOUT ECTOPY.
--- NOTE | 2019-10-23 03:20 | NUR ---
STUMP DRESSING CHANGED. OLD SCAB CLEANED WITH CHLOROPREP AND REDRESSED WITH A FOAM DRESSING.
[2019-10-23 03:43] LABS: Hematocrit 24.8 % (41.0-53.0); Hemoglobin 8.5 g/dL (13.5-17.5); Mean Corpuscular Hemoglobin 30.5 pg (28.0-32.0); Mean Corpuscular Hgb Conc. 34.3 g/dL (32.0-36.0); Mean Corpuscular Volume 88.9 fL (80.0-100.0); Platelet Count (auto) 168 10^3/uL (140-450); Red Blood Cells 2.79 10^6/uL (4.5-5.90); Red Cell Distribution Width 15.5 % (11.8-14.3)
[2019-10-23] MEDS: HEPARIN DRIP/D5W 100UNITS/ML 250 ML IV SCH ×2 (03:50→16:40)
[2019-10-23 04:00] LABS: Bilirubin, Direct 1.3 mg/dL (0-0.2); Calcium 6.1 mg/dL (8.5-10.1); Magnesium 2.3 mg/dL (1.6-2.6); Potassium 3.9 mmol/L (3.5-5.1)
[2019-10-23 04:02] LABS: Basophils % (manual) 0 (0.0-2.0); Blast Cells 0; Metamyelocytes % 0; Myelocytes % 0; Promyelocytes % 0; Reactive Lymphocytes 0
[2019-10-23 04:11] LABS: BUN/Creatinine Ratio 5.9; Bilirubin, Total 1.7 mg/dL (0.2-1.0)
[2019-10-23] MEDS: NOREPINEPHRINE 8 MG/250ML KIT 250 ML IV SCH ×2 (04:30→10:15)
[2019-10-23 04:33] LABS: Albumin 0.9 g/dL (3.4-5.0)
[2019-10-23 04:48] LABS: Total Protein 5.4 g/dL (6.4-8.2)
[2019-10-23 05:00] LABS: Band Neutrophils % (manual) 9; Eosinophils % (manual) 4 (0-7); Lymphocytes % (manual) 26 (10.0-50.0); Monocytes % (manual) 2 (0-12)
--- NOTE | 2019-10-23 05:00 | NUR ---
CHG BATH AND COMPLETE LINEN CHANGE
[2019-10-23 05:16] LABS: INR 1.01 (0.9-1.15)
[2019-10-23 05:17] LABS: Partial Thromboplastin Time 23.1 sec (23.64-32.05)
--- NOTE | 2019-10-23 06:00 | NUR ---
CHANGED THE CUFF TO MEDIUM SIZE ON THE LEFT FOREARM AND THE BP WAS HIGHER. WEANING DOWN THE LEVOPHED, PROPOFOL AND VERSED. NSR WITHOUT ECTOPY . CENTRAL LINE DRESSING CLEAN AND DRY. LOW URINE OUTPUT.
[2019-10-23] MEDS: LEVOTHYROXINE SODIUM 25 MCG TAB PO SCH (06:26)
--- NOTE | 2019-10-23 06:57 | NUR ---
POSITIVE BLOOD CULTURE RESULTS CALLED TO DR FISHER'S ANSWERING SERVICE WELL THE ANTIBIOTICS THE PATIENT IS ON.
--- NOTE | 2019-10-23 08:25 | NUR ---
I called [facility] [phone] and left message for laborer hide house asking if they can accommodate this patient-awaiting return call.
--- NOTE | 2019-10-23 08:27 | NUR ---
I called [facility] [phone] and left message for Admissions asking about bed availability.
[2019-10-23] MEDS ORDERED: PIPERACILLIN-TAZOB 2.25GM 50 ML IV SCH (08:30)
[2019-10-23] MEDS ORDERED: MEROPENEM 1GM IVPB 100 ML IV ONE (08:30)
--- NOTE | 2019-10-23 08:35 | NUR ---
I received a call from Graciela at [facility] letting me know that they are at capacity for their ICU beds and can not take patient at this time.
--- NOTE | 2019-10-23 09:39 | NUR ---
I received a call from house designer Shannon at [facility]-she is going to speak with her director and will let me know if they are able to accommodate this patient-she did say no ICU beds available right now-faxed additional requested information.
[2019-10-23] MEDS: DULOXETINE 20 MG CAP PO SCH (09:42)
[2019-10-23] MEDS: PANTOPRAZOLE 40 MG/10 ML VIAL INJ IV SCH (10:13)
[2019-10-23] MEDS: GABAPENTIN 300 MG CAP PO SCH (10:14)
[2019-10-23] MEDS: ASPirin 81 mg TAB PO SCH (10:14)
[2019-10-23] MEDS: MUPIROCIN 2% OINT 15gm or 22gm EACHNOSTRI SCH (10:15)
--- NOTE | 2019-10-23 11:41 | NUR ---
Patient's abdominal girth 38 inches as measured by ICU director 10/22/19.
--- NOTE | 2019-10-23 11:55 | NUR ---
Faxed documentation of patient's abdominal girth to [facility] per the request of warehouse selector Katalina.
--- NOTE | 2019-10-23 12:40 | NUR ---
I received a call from [facility] Gutter Hanger Alison letting me know that her certified medical asst did speak with Dr. Yonis Guajardo regarding the request to transfer to [facility] in [place]. Per Alison-they will authorize transfer to [place] tomorrow if no facility is able to take patient today. Alison also stated that her certified medical asst also stated that we need to reach out to other hospitals in [place]-even if they are not contracted with [facility]. I let Alison know that I had already reached out to over a dozen facilities-she is going to look into other possible facilities in [place] that may be able to accommodate patient and she will give me a call back.
--- NOTE | 2019-10-23 14:02 | NUR ---
I spoke with the [facility] Transfer Center [phone] (Linda)-she said that they are able to accommodate this patient's size, and that all they would need from [facility] is an authorization number. I let Linda know that I would be calling tomorrow ([facility] won't authorize today) to request the actual transfer. I spoke with Masha ([phone]) and provided her with [facility] authorization number [id number] provided to me by Sonya at [facility]-Betzy is requesting that a hard copy authorization be faxed to them-I notified Alison at [facility]-she will give me a call back. I placed [facility] on will call pending transfer to [facility] in [place] (for tomorrow) with critical care transport. I also spoke with patient's nurse and updated her on the status of the transfer.
[2019-10-23] MEDS: BUMETANIDE 2.5mg/10ml (0.25 mg/ml) INJ IV SCH ×2 (15:32→17:39)
[2019-10-23] MEDS: PIPERACILLIN-TAZOB 2.25GM 50 ML IV SCH (15:32)
--- NOTE | 2019-10-23 15:56 | NUR ---
I spoke with patient's sister Tete and updated her on the status of the transfer-I let her know that I would call her tomorrow when I know what time patient will be transferred.
--- NOTE | 2019-10-23 16:14 | NUR ---
assessment Patient is a 49 year old male who is in ICU. Per patients sister Tete prior to admission patient lived home with her and functioned with her assistance. Patient has a wheelchair, fww, shower transport, hospital bed with tania, and 02 for home use. Patients PCP is [facility] in [place]. Patient is on dialysis at [facility] at 130pm. Patient is on service with [employer] [facility] Tete is aware of patients transfer order. Tete agrees with transfer. Divya casework specialist is working on transfer. Tete verbalized understanding aida agreed to discharge plan to higher level of care. Addendum: 10/23/19 at 1619 by Gricelda CAMPUZANO Amended: Links added.
--- NOTE | 2019-10-23 16:35 | NUR ---
I spoke with [facility] house moving supervisor Katalina [phone]-she said they do have the capacity to handle this patient's weight and abdominal girth. Per Katalina they do have ICU beds available. Dr Guajardo needs to call their hospitalist line [phone] and their public health clinical nurse specialist line [phone] to see if they will accept the patient. Per Katalina once we have the accepting physician I need to call her back and let her know then she can work on a bed assignment. Addendum: 10/23/19 at 1639 by Divya Taveras RN I spoke with Dr. Yonis Guajardo and provided him with both contact number for [facility] providers, he will call them and give me a call back to let me know if they are willing to accept this patient.
--- NOTE | 2019-10-23 17:27 | NUR ---
I spoke with Dr Yonis Guajardo-he said the hospitalist has accepted patient but he is still trying to get a hold of the cloth examiner hand. I asked Dr. Guajardo to let ICU nurse know when he gets a hold of the second doctor. I spoke with patient's nurse and asked her to call [facility] [phone] and speak with housekeeping supervisor hotel when Dr. Guajardo calls her back to let her know that both MD's are accepting patient. I called [facility] and attempted to get a hold of housekeeping supervisor hotel-left message letting her know that our MD is having trouble getting a hold of the second physician. [facility] remains on will call-patient's nurse aware.
[2019-10-23 20:00] LABS: Hemoglobin 7.3 g/dL (13.5-17.5); Lymphocytes # (auto) 1.1 10 ^3/uL (0.4-5.4); Mean Corpuscular Hemoglobin 30.1 pg (28.0-32.0); Mean Corpuscular Volume 88.5 fL (80.0-100.0); Monocytes # (auto) 0.9 10 ^3/uL (0-1.3); Neutrophils # (auto) 7.1 10 ^3/uL (1.6-8.6)
--- NOTE | 2019-10-23 20:00 | NUR ---
ADMITTED FOR RESPIRATORY FAILURE. RULED OUT FOR COVID. PLAN FOR TRANSFER TOMORROW TO [facility] [place] TOMORROW. RADIOLOGY DISC REQUESTED. CHART IS COPIED. WOUND CARE INVOLVED. BIG BOY BED DENIED. - BLINK, GAG OR COUGH. ETT TO VENTILATOR. ON AC MODE. RATE 14 AND PEEP IS 12. OGT CLAMPED. 3-4+ PITTING EDEMA ALL OVER BODY. PULSES WITH DOPPLER. OLD GAVINO TIP CULTURE NEGATIVE. LEFT CHEST (OLD GAVINO SITE) IS DRAINING SEROSANG FLUID. FOAM DRESSING REMOVED AND SITE CLEANED WITH CHLOROPREP AND REDRESSED WITH A FOAM DRESSING. CENTRAL LINE DRESSING CLEAN AND DRY. STARTED ON BUMEX TODAY. HAVE NOT HEARD FROM [facility] SO FAR OR DR Yonis MENJIVAR. CHANGED ANTIBIOTIC FROM MEROPENUM TO ZOSYN. ORAL CAVITY: SUCTIONING BLOOD STILL. IN ISOLATION FOR + MRSA IN THE NARES AND BLOOD. LEFT STUMP DRESSING REMOVED, NO DRNG. OLD SCAB SITE CLEANED WITH CHLOROPREP AND REDRESSED WITH A FOAM DRESSING. REPOSITIONED TO BACK. HOB ELEVATED.
[2019-10-23 20:02] LABS: Basophils # (auto) 0.1 10 ^3/uL (0-0.2); Basophils % (auto) 0.5 % (0.0-2.0); Eosinophils # (auto) 0.4 10 ^3/uL (0-0.8); Eosinophils % (auto) 4.2 % (0.0-7.0); Hematocrit 21.4 % (41.0-53.0); Lymphocytes % (auto) 11.9 % (10.0-50.0); Monocytes % (auto) 9.3 % (0.0-12.0); Neutrophils % (auto) 74.1 % (37.0-80.0); Platelet Count (auto) 156 10^3/uL (140-450); Red Blood Cells 2.42 10^6/uL (4.5-5.90); White Blood Cell 9.6 10^3/uL (4.4-10.8)
[2019-10-23 20:18] LABS: BUN/Creatinine Ratio 6.6; Calcium 6.5 mg/dL (8.5-10.1); Magnesium 2.1 mg/dL (1.6-2.6); Potassium 3.7 mmol/L (3.5-5.1)
[2019-10-23 20:21] LABS: INR 0.99 (0.9-1.15)
[2019-10-23 20:22] LABS: Partial Thromboplastin Time 36.3 sec (23.64-32.05)
--- NOTE | 2019-10-23 21:36 | NUR ---
[facility] COMPUTATIONAL SCIENCES PROFESSOR CALLED AND HAS TURNED THE PATIENT DOWN BASED ON SIZE. HE IS UNABLE TO FIT IN THEIR CT SCANNER.
--- NOTE | 2019-10-23 22:00 | NUR ---
VSS. NO FEVER. SUCTIONED FOR NO SECRETIONS . ORAL CARE . LESS BLOOD ORALLY. LUNGS CLEAR. ABDOMEN SOFT . 3-4+ GENERALIZED EDEMA. LEFT UPPER CHEST WHERE THE PREVIOUS GAVINO WAS: REMOVED THE DRESSING . CLEANED SITE WITH CHLOROPREP AND REDRESSSED IT WITH A FOAM DRESSING. STUMP DRESSING REMOVED. SWABBED SCAB WITH CHLOROPREP AND REDRESSED IT WITH A FOAM DRESSING. REPOSITIONED. NSR WITHOUT ECTOPY. IV SITE SHOWS NO DRNG. LOW URINE OUTPUT.
[2019-10-23] MEDS: ATORVASTATIN 20 MG TAB PO SCH (22:20)
[2019-10-24] VITALS (86 sets, daily range): BP systolic 75–150; BP diastolic 33–70
--- NOTE | 2019-10-24 | NUR ---
VSS. DECREASED THE VERSED, LEVOPHED. AND DIPRIVAN. NSR WITHOUT ECTOPY. REPOSITIONED TO BACK ORAL CARE DONE. + COUGH AND GAG. PULSES WITH DOPPLER. LUNGS CLEAR. NOTHING SUCTIONED FROM THE ETT.
[2019-10-24] MEDS: ALBUTEROL SULF 2.5 MG/0.5ML(0.5%) NEB SOLN NEB SCH ×4 (00:39→18:31)
[2019-10-24] MEDS: IPRATROPIUM BROM 0.5 MG/2.5ML INH SOL NEB SCH ×4 (00:39→18:31)
[2019-10-24] MEDS ORDERED: NOREPINEPHRINE 8 MG/250ML KIT 250 ML IV ONE (01:02)
--- NOTE | 2019-10-24 02:00 | NUR ---
NO CHANGE IN ASSESSMENT. NSR WITHOUT ECTOPY.
[2019-10-24 04:22] LABS: Eosinophils # (auto) 0.4 10 ^3/uL (0-0.8); Lymphocytes # (auto) 1.1 10 ^3/uL (0.4-5.4); Monocytes # (auto) 0.8 10 ^3/uL (0-1.3)
[2019-10-24 04:25] LABS: Basophils # (auto) 0.1 10 ^3/uL (0-0.2); Basophils % (auto) 0.7 % (0.0-2.0); Eosinophils % (auto) 4.3 % (0.0-7.0); Mean Corpuscular Hemoglobin 29.3 pg (28.0-32.0); Mean Corpuscular Hgb Conc. 31.9 g/dL (32.0-36.0); Mean Corpuscular Volume 91.8 fL (80.0-100.0); Monocytes % (auto) 8.9 % (0.0-12.0); Neutrophils # (auto) 6.7 10 ^3/uL (1.6-8.6); Neutrophils % (auto) 74.1 % (37.0-80.0); Nucleated Red Blood Cells % 0.1 %; Platelet Count (auto) 165 10^3/uL (140-450); Red Blood Cells 2.28 10^6/uL (4.5-5.90); Red Cell Distribution Width 15.6 % (11.8-14.3)
[2019-10-24 04:34] LABS: Hemoglobin 6.7 g/dL (13.5-17.5)
[2019-10-24 04:35] LABS: INR 0.97 (0.9-1.15); Partial Thromboplastin Time 25.7 sec (23.64-32.05)
[2019-10-24 04:46] LABS: Calcium 6.3 mg/dL (8.5-10.1); Potassium 3.8 mmol/L (3.5-5.1)
[2019-10-24 04:52] LABS: BUN/Creatinine Ratio 6.5; Bilirubin, Direct 0.7 mg/dL (0-0.2); Bilirubin, Total 0.9 mg/dL (0.2-1.0); Magnesium 2.3 mg/dL (1.6-2.6)
[2019-10-24 04:55] LABS: Albumin 0.8 g/dL (3.4-5.0)
[2019-10-24] MEDS: MIDAZOLAM DRIP 50 mg/50mL 50 ML IV SCH (05:00)
--- NOTE | 2019-10-24 05:26 | NUR ---
CHG BATH AND PARTIAL LINEN CHANGE COMPLETE. PILLOW CASE IN PANUS AREA. GENERALIZED 3+ EDEMA PERSISTS. + COUGH AND GAG. RECTAL TEMP PROBE. PULSES WITH DOPPLER. CXR COMPLETE. LABS SENT.
[2019-10-24] MEDS: NOREPINEPHRINE 8 MG/250ML KIT 250 ML IV SCH (05:33)
[2019-10-24] MEDS: InsuLIN REG 1unit/0.01ml Soln (100units/ml) SC SCH ×4 (06:00→18:51)
[2019-10-24] MEDS: ACCU-CHEK COMFORT CURVE STRIP VI SCH ×4 (06:13→18:50)
[2019-10-24] MEDS: BUMETANIDE 2.5mg/10ml (0.25 mg/ml) INJ IV SCH ×2 (06:13→18:50)
--- NOTE | 2019-10-24 06:19 | NUR ---
DR FISHER NOTIFIED OF HG OF 6.7. ONE UNIT OF PACKED CELLS ORDERED.
[2019-10-24] MEDS: PROPOFOL 100 ML IV SCH (06:52)
[2019-10-24] MEDS: LEVOTHYROXINE SODIUM 25 MCG TAB PO SCH (07:30)
[2019-10-24] MEDS: fentaNYL Drip 2500mCg/250mlNS 250 ML IV SCH (08:00)
--- NOTE | 2019-10-24 08:34 | NUR ---
I called the [facility] Transfer Center ([facility])[phone] and spoke with Minna regarding the order to transfer to higher level of care. I provided her with contact information for Dr Yonis Guajardo as well as the nurse's station. Faxed her requested clinical documents to [phone]. Per Minna, she is going to fax me a form regarding patient's measurements that needs to be filled out-fax number provided.
--- NOTE | 2019-10-24 08:42 | NUR ---
I spoke with nurse Vinita regarding [facility] in [place] needing specific body measurements-faxed sheet to ICU-she will fax it back to me with measurements.
--- NOTE | 2019-10-24 09:10 | NUR ---
I SPOKE TO CHRISTELLE SMITH, FOR CONSENT FOR BLOOD TRANSFUSION. UPDATED ON TRANSFER AND PT CONDITION, QUESTIONS ANSWERED.
[2019-10-24] MEDS ORDERED: DULoxetine HCL 30 MG CAP PO ONE (09:32)
[2019-10-24] MEDS: PANTOPRAZOLE 40 MG/10 ML VIAL INJ IV SCH (09:35)
[2019-10-24] MEDS: GABAPENTIN 300 MG CAP PO SCH (09:35)
[2019-10-24] MEDS: PIPERACILLIN-TAZOB 2.25GM 50 ML IV SCH ×3 (09:35→18:00)
[2019-10-24] MEDS: DULOXETINE 20 MG CAP PO SCH (09:38)
--- NOTE | 2019-10-24 10:18 | NUR ---
I faxed requested measurements to [facility].
--- NOTE | 2019-10-24 11:48 | NUR ---
I called [facility] [phone] and spoke with Minna-she is waiting to hear back from her CT scan department to confirm that the measurements are within their capability. Per Minna she will give me a call back.
--- NOTE | 2019-10-24 11:58 | NUR ---
I called [facility] and spoke with Savana-she says she doesn't think they have any ICU beds available but to fax paperwork to [phone]. Faxed requested documentation.
--- NOTE | 2019-10-24 12:59 | NUR ---
I spoke with Minna at the [facility]-provided her with additional clinical information as requested-provided her with [facility] authorization number as well as contact information for Alison at [facility]. Per Minna their CT scanner can accommodate this patient-she will work on MD to MD and give me a call back.
--- NOTE | 2019-10-24 13:51 | NUR ---
I received a call from Minna at the [facility]-she said they have an accepting MD DR. Kennedy Morales-they are just waiting for a bed assignment. I called [facility] Service Sprinkler Helper Alison to make her aware and to ask her to send a hard copy authorization to [facility]-left message.
--- NOTE | 2019-10-24 13:52 | NUR ---
I received a message from [facility] letting me know that they have no ICU beds available.
--- NOTE | 2019-10-24 14:01 | NUR ---
I spoke with [facility] Assistant Golf Coach Alison-she is going to call [facility] regarding the hard copy authorization request.
--- NOTE | 2019-10-24 15:38 | NUR ---
I REC'D CALL FROM ROBIN IN CASE MANAGEMENT. [facility] RM 6281 [facility] ETA FOR PICKUP [phone]. NUMBER FOR REPORT [phone]. SISTER AMANDA ALLEN NOTIFIED
--- NOTE | 2019-10-24 15:40 | NUR ---
Patient will be going to [facility] in [place] room [address] Morales, nurse to call report to [phone]. I called [facility] and spoke with Satnam, ETA for critical care transport is [phone]. I called patient's sister Tete and made her aware of room number and tack picker time. I called nurse Vinita and made her aware. I also called [facility] Transfer Center [phone] and left message for Minna to make her aware of the ETA.
--- NOTE | 2019-10-24 17:40 | NUR ---
I REC'D CALL FROM [facility] CCT RN FOR BRIEF REPORT. THEY WERE ENROUTE TO [facility] FOR TRANSPORT. REMINDED HIM THAT THE BARIATRIC GURNEY WAS NECESSARY. HE SAID THEY WOULD HAVE TO RETURN TO [place] AND GET THE LARGER RIG.
--- NOTE | 2019-10-24 19:30 | NUR ---
[facility] HERE, REPORT GIVEN. 1950: REPORT GIVEN TO [facility], [facility]. [facility] IS CHANGING THE DRIPS OVER TO THEIR IV PUMP RIGHT NOW.
--- NOTE | 2019-10-24 20:19 | NUR ---
PATIENT LEFT THE UNIT. DR Yonis MENJIVAR AWARE. MRSA SWAB DONE. NO WOUNDS.
== END 2019-10-24 20:25 | disposition short-term general hospital (02) | DRG 720 ==
LOC: EDBD 19:28 → ER 19:30 → TELE 19:31 → ICU WEST 10-18 02:11
PROVIDERS: ADMIT Nurse Practitioner; ATTEND Internal Medicine
PROC: 5A1955Z Respiratory Ventilation, Greater than 96 Consecutive Hours (ICD-10-PCS; principal; 2019-10-18)
PROC: 0BH17EZ Insertion of Endotracheal Airway into Trachea, Via Natural or Artificial Opening (ICD-10-PCS; 2019-10-18)
PROC: 5A1D70Z Performance of Urinary Filtration, Intermittent, Less than 6 Hours Per Day (ICD-10-PCS; 2019-10-19)
PROC: 0JPV3XZ Removal of Tunneled Vascular Access Device from Upper Extremity Subcutaneous Tissue and Fascia, Percutaneous Approach (ICD-10-PCS; 2019-10-22)
PROC: 02PY33Z Removal of Infusion Device from Great Vessel, Percutaneous Approach (ICD-10-PCS; 2019-10-22)
PROC: 5A1D70Z Performance of Urinary Filtration, Intermittent, Less than 6 Hours Per Day (ICD-10-PCS; 2019-10-22)
PROC: 30233N1 Transfusion of Nonautologous Red Blood Cells into Peripheral Vein, Percutaneous Approach (ICD-10-PCS; 2019-10-24)
DX: A41.02 Sepsis due to Methicillin resistant Staphylococcus aureus (principal); I21.4 Non-ST elevation (NSTEMI) myocardial infarction; J96.01 Acute respiratory failure with hypoxia; R65.21 Severe sepsis with septic shock; I13.2 Hypertensive heart and chronic kidney disease with heart failure and with stage 5 chronic kidney disease, or end stage renal disease; J18.9 Pneumonia, unspecified organism; N18.6 End stage renal disease; I42.9 Cardiomyopathy, unspecified; E66.01 Morbid (severe) obesity due to excess calories; E83.51 Hypocalcemia; B95.61 Methicillin susceptible Staphylococcus aureus infection as the cause of diseases classified elsewhere; I50.43 Acute on chronic combined systolic (congestive) and diastolic (congestive) heart failure; N39.0 Urinary tract infection, site not specified; F41.9 Anxiety disorder, unspecified; E11.40 Type 2 diabetes mellitus with diabetic neuropathy, unspecified; G47.30 Sleep apnea, unspecified; E87.2 Acidosis; F32.9 Major depressive disorder, single episode, unspecified; G47.33 Obstructive sleep apnea (adult) (pediatric); I08.0 Rheumatic disorders of both mitral and aortic valves; T82.7XXA Infection and inflammatory reaction due to other cardiac and vascular devices, implants and grafts, initial encounter; I25.10 Atherosclerotic heart disease of native coronary artery without angina pectoris; Y83.8 Other surgical procedures as the cause of abnormal reaction of the patient, or of later complication, without mention of misadventure at the time of the procedure; J44.0 Chronic obstructive pulmonary disease with (acute) lower respiratory infection; E11.22 Type 2 diabetes mellitus with diabetic chronic kidney disease; E11.65 Type 2 diabetes mellitus with hyperglycemia; E03.9 Hypothyroidism, unspecified; E11.51 Type 2 diabetes mellitus with diabetic peripheral angiopathy without gangrene; E87.6 Hypokalemia; Z99.2 Dependence on renal dialysis; Z68.43 Body mass index [BMI] 50.0-59.9, adult; Z89.512 Acquired absence of left leg below knee; Z83.3 Family history of diabetes mellitus; Z82.49 Family history of ischemic heart disease and other diseases of the circulatory system; Z79.899 Other long term (current) drug therapy
CPT/HCPCS: 31500; 36415; 36600; 71045; 76881; 80048; 80053; 80076; 80202; 81001; 82248; 82570; 82805; 82962; 83605; 83735; 83880; 84132; 84300; 84439; 84443; 84480; 84484; 85007; 85014; 85018; 85025; 85027; 85379; 85610; 85730; 86850; 86900; 86901; 86920; 87040; 87070; 87075; 87077; 87081; 87186; 87205; 87804; 87880; 90935; 93005; 93970; 94002; 94003; 94640; 96365; 96367; 99291; C9113; G0378; J0330; J0610; J0885; J1642; J1815; J2185; J2250; J2543; J2704; J3480; J7060